=== PATIENT | female | born 1955 | race Caucasian/White ===

== ENCOUNTER 2016-07-04 19:41 | Observation (INO) | payer MEDICAID ==
[~2016-07-04] VITALS: Ht 157.5 cm; Wt 99.8 kg
[~2016-07-04 19:41] MED LIST: AMIT100T2; GABA300C8; PANTOPRAZOLE; SERT-160; SIMV-13; [UNRECOGNIZED DRUG - CODE]
[2016-07-05] MEDS ORDERED: SODIUM CHLORIDE 0.9% 1,000 ML IV ONE (06:47)
[2016-07-05] MEDS ORDERED: HYDROcodone-ACET 5/325MG TAB PO ONE (07:00)
[2016-07-05 07:24] VITALS: BP 171/99
[2016-07-05 07:25] LABS: Basophils # (auto) 0 uL; Basophils % (auto) 0.3 % (0.0-2.0); Eosinophils # (auto) 0.2 uL; Eosinophils % (auto) 2.6 % (0.0-7.0); Hemoglobin 13.6 g/dL (12.2-16.2); Lymphocytes # (auto) 2.6 uL; Lymphocytes % (auto) 31.1 % (10.0-50.0); Mean Corpuscular Hemoglobin 30.3 pg (28.0-32.0); Mean Corpuscular Hgb Conc. 33.3 g/dL (32.0-36.0); Mean Platelet Volume 7.5 fL (7.4-10.4); Monocytes # (auto) 0.5 uL; Monocytes % (auto) 6.2 % (0.0-12.0); Neutrophils # (auto) 5.1 uL; Neutrophils % (auto) 59.8 % (37.0-80.0); Platelet Count (auto) 224 10^3/uL (140-450); Red Cell Distribution Width 14.7 % (11.6-16.0); White Blood Cell 8.5 10^3/uL (4.4-10.8)
[2016-07-05 07:46] LABS: Albumin 4.2 g/dL (3.4-5.0); Blood Urea Nitrogen 13 mg/dL (7-18); Calcium 9.2 mg/dL (8.5-10.1); Chloride 104 mmol/L (98-107); Glucose 134 mg/dL (74-106); Potassium 3.5 mmol/L (3.5-5.1); Sodium 142 mmol/L (136-145)
[2016-07-05 07:50] LABS: Alkaline Phosphatase 102 U/L (45-117); Anion Gap 12 (5-15); Aspartate Aminotransferase 35 U/L (15-37); BUN/Creatinine Ratio 22.8; Bilirubin, Total 0.2 mg/dL (0.2-1.0); Carbon Dioxide 26 mmol/L (21-32); GFR African American 140 mL/min; GFR Non-African American 115 mL/min; INR 1.11 (0.9-1.15); Partial Thromboplastin Time 26.6 sec (22.64-33.71); Prothrombin Time 11.4 sec (9.37-12.3); Total Protein 8.3 g/dL (6.4-8.2)
== END 2016-07-05 08:49 | disposition home or self-care (01) | DRG 384 ==
LOC: ER 19:44 → OVERFLOW 07-05 06:50 → ER 07-05 08:49
PROVIDERS: ADMIT Emergency Medicine; ATTEND Emergency Medicine
DX: T14.8 Other injury of unspecified body region (principal); E66.01 Morbid (severe) obesity due to excess calories; I10 Essential (primary) hypertension; R06.02 Shortness of breath; J44.9 Chronic obstructive pulmonary disease, unspecified; E11.9 Type 2 diabetes mellitus without complications; K21.9 Gastro-esophageal reflux disease without esophagitis; E78.00 Pure hypercholesterolemia, unspecified; Z86.73 Personal history of transient ischemic attack (TIA), and cerebral infarction without residual deficits; R07.81 Pleurodynia; M25.9 Joint disorder, unspecified; F32.9 Major depressive disorder, single episode, unspecified; W19.XXXA Unspecified fall, initial encounter; Y93.89 Activity, other specified; Y92.89 Other specified places as the place of occurrence of the external cause; Y99.8 Other external cause status
CPT/HCPCS: 36415; 71111; 80053; 84484; 85025; 85610; 85730; 93005; 96360; 99285; G0378; J7030

== ENCOUNTER 2016-08-20 03:53 | Emergency (ER) | payer MEDICAID ==
[~2016-08-20] VITALS: Ht 157.5 cm; Wt 101.6 kg
[2016-08-20 04:00] VITALS: BP 135/85
[2016-08-20] MEDS ORDERED: KETOROLAC TROMETH 60MG/2ML VIAL IM ONE (04:45)
[2016-08-20] MEDS ORDERED: methylPREDNISolone SOD SUCC 125 MG/2 ML VL IM ONE (04:45)
== END 2016-08-20 04:50 | disposition home or self-care (01) ==
LOC: ER 03:58
CPT/HCPCS: 29505 ×2; 96372 ×2; 99284; J1885 ×2; J2930

== ENCOUNTER 2016-12-28 19:15 | Emergency (ER) | payer MEDICAID ==
[~2016-12-28] VITALS: Ht 157.5 cm; Wt 99.3 kg
[~2016-12-28 19:15] MED LIST changes: +GABA-497; -GABA300C8
[2016-12-28 21:30] VITALS: BP 152/84
== END 2016-12-28 22:08 | disposition home or self-care (01) ==
LOC: ER 19:20
DX: S90.32XA Contusion of left foot, initial encounter (principal); J45.909 Unspecified asthma, uncomplicated; E11.9 Type 2 diabetes mellitus without complications; K21.9 Gastro-esophageal reflux disease without esophagitis; E78.5 Hyperlipidemia, unspecified; Z79.899 Other long term (current) drug therapy; Z90.49 Acquired absence of other specified parts of digestive tract; W18.39XA Other fall on same level, initial encounter; Y93.89 Activity, other specified; Y92.89 Other specified places as the place of occurrence of the external cause; Y99.8 Other external cause status
CPT/HCPCS: 73630

== ENCOUNTER 2018-05-23 02:19 | Emergency (ER) | payer MEDICAID ==
[~2018-05-23] VITALS: Ht 157.5 cm; Wt 104.3 kg
[~2018-05-23 02:19] MED LIST changes: -GABA-497; +GABA300C10
[2018-05-23 02:45] LABS: Basophils # (auto) 0.1 uL; Basophils % (auto) 0.5 % (0.0-2.0); Eosinophils # (auto) 0.3 uL; Eosinophils % (auto) 2.8 % (0.0-7.0); Hematocrit 38.9 % (36.0-46.0); Lymphocytes # (auto) 3.6 uL; Lymphocytes % (auto) 32.7 % (10.0-50.0); Mean Corpuscular Hemoglobin 29.7 pg (28.0-32.0); Mean Corpuscular Hgb Conc. 33.3 g/dL (32.0-36.0); Mean Corpuscular Volume 89.2 fL (80.0-100.0); Monocytes # (auto) 0.7 uL; Monocytes % (auto) 6.7 % (0.0-12.0); Neutrophils # (auto) 6.4 uL; Neutrophils % (auto) 57.3 % (37.0-80.0); Nucleated Red Blood Cells % 0.1 %; Platelet Count (auto) 219 10^3/uL (140-450); Red Blood Cells 4.36 10^6/uL (4.0-5.20); Red Cell Distribution Width 14.4 % (11.8-14.3); White Blood Cell 11.1 10^3/uL (4.4-10.8)
[2018-05-23 03:03] LABS: Albumin 4.2 g/dL (3.4-5.0); Calcium 8.8 mg/dL (8.5-10.1); Potassium 3.5 mmol/L (3.5-5.1)
[2018-05-23 03:06] LABS: Bilirubin, Total 0.2 mg/dL (0.2-1.0); Total Protein 7.8 g/dL (6.4-8.2)
[2018-05-23 07:54] VITALS: BP 152/58
== END 2018-05-23 08:56 | disposition home or self-care (01) ==
LOC: ER 02:19
DX: S86.911A Strain of unspecified muscle(s) and tendon(s) at lower leg level, right leg, initial encounter (principal); J45.909 Unspecified asthma, uncomplicated; E11.9 Type 2 diabetes mellitus without complications; K21.9 Gastro-esophageal reflux disease without esophagitis; E78.5 Hyperlipidemia, unspecified; Z86.73 Personal history of transient ischemic attack (TIA), and cerebral infarction without residual deficits; Z90.49 Acquired absence of other specified parts of digestive tract; X58.XXXA Exposure to other specified factors, initial encounter; Y93.89 Activity, other specified; Y92.098 Other place in other non-institutional residence as the place of occurrence of the external cause; Y99.8 Other external cause status
CPT/HCPCS: 36415; 80053; 85025; 93971

== ENCOUNTER 2018-07-01 16:38 | Emergency (ER) | payer MEDICAID ==
[~2018-07-01] VITALS: Ht 157.5 cm; Wt 103.4 kg
[2018-07-01] MEDS ORDERED: IPRATROPIUM BROM 0.5 MG/2.5ML INH SOL NEB ONE (19:45)
[2018-07-01] MEDS ORDERED: ALBUTEROL SULF 2.5 MG/0.5ML(0.5%) NEB SOLN NEB ONE (19:45)
[2018-07-01] MEDS ORDERED: methylPREDNISolone SOD SUCC 125 MG/2 ML VL IM ONE (19:45)
[2018-07-01 20:31] VITALS: BP 114/63
== END 2018-07-01 23:40 | disposition home or self-care (01) ==
LOC: ER 16:46
DX: M25.562 Pain in left knee (principal); J44.1 Chronic obstructive pulmonary disease with (acute) exacerbation; E11.9 Type 2 diabetes mellitus without complications; K21.9 Gastro-esophageal reflux disease without esophagitis; E78.5 Hyperlipidemia, unspecified; Z90.49 Acquired absence of other specified parts of digestive tract; Z86.73 Personal history of transient ischemic attack (TIA), and cerebral infarction without residual deficits
CPT/HCPCS: 73562; 94640; 96372; 99283; J2930; J7611; J7644

== ENCOUNTER 2021-11-12 14:03 | Emergency (ER) | payer MEDICAID ==
[~2021-11-12 14:03] MED LIST changes: -AMIT100T2; +AMIT1TAB41
[2021-11-12 15:00] LABS: Albumin 3.7 g/dL (3.4-5.0); Calcium 9.6 mg/dL (8.5-10.1); Potassium 4.1 mmol/L (3.5-5.1)
[2021-11-12 15:05] LABS: BUN/Creatinine Ratio 24.6; Bilirubin, Total 0.2 mg/dL (0.2-1.0); Total Protein 7.8 g/dL (6.4-8.2)
[2021-11-12 15:09] LABS: Basophils # (auto) 0 10 ^3/uL (0-0.2); Basophils % (auto) 0.3 % (0.0-2.0); Eosinophils # (auto) 0.2 10 ^3/uL (0-0.8); Eosinophils % (auto) 1.6 % (0.0-7.0); Hematocrit 39.9 % (36.0-46.0); Hemoglobin 12.8 g/dL (12.2-16.2); Lymphocytes # (auto) 2.2 10 ^3/uL (0.4-5.4); Lymphocytes % (auto) 21.8 % (10.0-50.0); Mean Corpuscular Hemoglobin 27.1 pg (28.0-32.0); Mean Corpuscular Volume 84.7 fL (80.0-100.0); Monocytes # (auto) 0.6 10 ^3/uL (0-1.3); Monocytes % (auto) 6.5 % (0.0-12.0); Neutrophils # (auto) 6.9 10 ^3/uL (1.6-8.6); Neutrophils % (auto) 69.8 % (37.0-80.0); Nucleated Red Blood Cells % 0.1 %; Red Blood Cells 4.71 10^6/uL (4.0-5.20); White Blood Cell 9.9 10^3/uL (4.4-10.8)
[2021-11-12 19:00] VITALS: BP 127/66
== END 2021-11-12 19:03 | disposition home or self-care (01) ==
LOC: EDBD 14:03 → ER 14:03
DX: S16.1XXA Strain of muscle, fascia and tendon at neck level, initial encounter (principal); S70.02XA Contusion of left hip, initial encounter; S50.02XA Contusion of left elbow, initial encounter; S09.8XXA Other specified injuries of head, initial encounter; J44.9 Chronic obstructive pulmonary disease, unspecified; E11.9 Type 2 diabetes mellitus without complications; K21.9 Gastro-esophageal reflux disease without esophagitis; E78.5 Hyperlipidemia, unspecified; I10 Essential (primary) hypertension; Z90.49 Acquired absence of other specified parts of digestive tract; Z90.710 Acquired absence of both cervix and uterus; Z98.51 Tubal ligation status; W01.0XXA Fall on same level from slipping, tripping and stumbling without subsequent striking against object, initial encounter; Y93.01 Activity, walking, marching and hiking; Y92.89 Other specified places as the place of occurrence of the external cause; Y99.8 Other external cause status
CPT/HCPCS: 36415; 70450; 72125; 73070; 73502; 80053; 85025; 93005

== ENCOUNTER 2022-07-03 10:49 | Emergency (ER) | payer OTHER, MEDICAID ==
[~2022-07-03] VITALS: Ht 167.6 cm; Wt 113.0 kg
[2022-07-03 11:27] LABS: Basophils # (auto) 0.2 10 ^3/uL (0-0.2); Eosinophils # (auto) 0.2 10 ^3/uL (0-0.8); Hematocrit 41.6 % (36.0-46.0); Hemoglobin 13.9 g/dL (12.2-16.2); Lymphocytes # (auto) 1.9 10 ^3/uL (0.4-5.4); Mean Corpuscular Hemoglobin 29.2 pg (28.0-32.0); Mean Corpuscular Hgb Conc. 33.4 g/dL (32.0-36.0); Mean Corpuscular Volume 87.5 fL (80.0-100.0); Monocytes # (auto) 0.5 10 ^3/uL (0-1.3); Red Blood Cells 4.76 10^6/uL (4.0-5.20); White Blood Cell 10.9 10^3/uL (4.4-10.8)
[2022-07-03 11:50] LABS: Albumin 3.6 g/dL (3.4-5.0); Bilirubin, Total 0.2 mg/dL (0.2-1.0); Calcium 9.4 mg/dL (8.5-10.1); Potassium 4.4 mmol/L (3.5-5.1); Total Protein 7.1 g/dL (6.4-8.2)
[2022-07-03 15:02] VITALS: BP 113/53
== END 2022-07-03 15:14 | disposition home or self-care (01) ==
LOC: EDBD 10:49 → ER 10:49
DX: S42.202A Unspecified fracture of upper end of left humerus, initial encounter for closed fracture (principal); I10 Essential (primary) hypertension; E11.9 Type 2 diabetes mellitus without complications; J44.9 Chronic obstructive pulmonary disease, unspecified; E78.5 Hyperlipidemia, unspecified; K21.9 Gastro-esophageal reflux disease without esophagitis; Z90.49 Acquired absence of other specified parts of digestive tract; Z86.73 Personal history of transient ischemic attack (TIA), and cerebral infarction without residual deficits; Z90.710 Acquired absence of both cervix and uterus; Z79.899 Other long term (current) drug therapy; W01.0XXA Fall on same level from slipping, tripping and stumbling without subsequent striking against object, initial encounter; Y93.89 Activity, other specified; Y92.89 Other specified places as the place of occurrence of the external cause; Y99.8 Other external cause status
CPT/HCPCS: 36415; 73030; 80053; 82550; 83605; 84484; 85025

== ENCOUNTER 2022-09-06 11:55 | Emergency (ER) | payer OTHER, MEDICAID ==
[~2022-09-06] VITALS: Ht 157.5 cm; Wt 108.5 kg
[2022-09-06 12:39] VITALS: BP 117/70
[2022-09-06] MEDS: HYDROcodone-ACET 10/325MG TAB PO ONE ×2 (13:59→14:30)
== END 2022-09-06 14:37 | disposition home or self-care (01) ==
LOC: ER 11:55
DX: M51.36 Other intervertebral disc degeneration, lumbar region (principal); M54.16 Radiculopathy, lumbar region; G89.29 Other chronic pain; M54.50 Low back pain, unspecified; J44.9 Chronic obstructive pulmonary disease, unspecified; I10 Essential (primary) hypertension; E11.9 Type 2 diabetes mellitus without complications; E78.5 Hyperlipidemia, unspecified; K21.9 Gastro-esophageal reflux disease without esophagitis; Z90.49 Acquired absence of other specified parts of digestive tract; Z90.710 Acquired absence of both cervix and uterus; Z79.899 Other long term (current) drug therapy
CPT/HCPCS: 72131

== ENCOUNTER 2023-05-08 13:24 | Inpatient (IN) | payer OTHER, MEDICAID ==
[~2023-05-08] VITALS: Ht 157.5 cm; Wt 101.7 kg
[~2023-05-08 13:24] MED LIST changes: +AMIT100T6 PO; -AMIT1TAB41; +GABA-1250; -GABA300C10; -SERT-160; +SERT-160 PO; -SIMV-13; +SIMV40TA18 PO
[2023-05-08 13:45] VITALS: PULSE 115; RESP 14; O2SAT 94
[2023-05-08 14:30] LABS: Basophils # (auto) 0 10 ^3/uL (0-0.2); Basophils % (auto) 0.4 % (0.0-2.0); Eosinophils # (auto) 0 10 ^3/uL (0-0.8); Eosinophils % (auto) 0.3 % (0.0-7.0); Hematocrit 46.6 % (36.0-46.0); Lymphocytes # (auto) 0.6 10 ^3/uL (0.4-5.4); Lymphocytes % (auto) 8.2 % (10.0-50.0); Mean Corpuscular Hemoglobin 27.8 pg (28.0-32.0); Mean Corpuscular Hgb Conc. 32.2 g/dL (32.0-36.0); Mean Corpuscular Volume 86.3 fL (80.0-100.0); Monocytes # (auto) 0.6 10 ^3/uL (0-1.3); Monocytes % (auto) 8.6 % (0.0-12.0); Neutrophils # (auto) 5.8 10 ^3/uL (1.6-8.6); Neutrophils % (auto) 82.5 % (37.0-80.0); Nucleated Red Blood Cells % 0.2 %; Red Blood Cells 5.39 10^6/uL (4.0-5.20); Red Cell Distribution Width 14.7 % (11.8-14.3); White Blood Cell 7.1 10^3/uL (4.4-10.8)
[2023-05-08] MEDS ORDERED: SODIUM CHLORIDE 0.9% 1,000 ML IV ONE (14:45)
[2023-05-08 14:56] LABS: Alanine Aminotransferase 103 U/L (7-40); Alkaline Phosphatase 73 U/L (46-116); Anion Gap 13 (5-15); Aspartate Aminotransferase 179 U/L (13-40); BUN/Creatinine Ratio 29.6 (10.0-20.0); Blood Urea Nitrogen 21 mg/dL (9-23); Calcium 8.8 mg/dL (8.7-10.4); Carbon Dioxide 20 mmol/L (20-30); Chloride 106 mmol/L (98-107); Glucose 229 mg/dL (74-106); Lipase 25 U/L (12-53); Magnesium 1.5 mg/dL (1.6-2.6); Potassium 4.2 mmol/L (3.5-5.1); Sodium 139 mmol/L (136-145)
[2023-05-08 14:57] LABS: Bilirubin, Total 0.3 mg/dL (0.2-1.0); Total Protein 6.8 g/dL (5.7-8.2)
[2023-05-08] MEDS ORDERED: MAGNESIUM SULFATE 1GM/100ML 100 ML IV ONE (15:45)
[2023-05-08] MEDS ORDERED: ACETAMINOPHEN 325 MG TAB PO PRN (16:30)
[2023-05-08] MEDS ORDERED: MORPHINE SULFATE INJ 2 MG/ml SYRG IV PRN (16:30)
[2023-05-08] MEDS ORDERED: DEXTROSE (50%) 50ML SYRG IV PRN (16:30)
[2023-05-08] MEDS ORDERED: NITROGLYCERIN 0.4 MG SL TAB SL PRN (16:30)
[2023-05-08 16:46] VITALS: BP 114/90; PULSE 109; RESP 18; TEMP 98.3; O2SAT 97
[2023-05-08 17:19] LABS: LDL Cholesterol 74 mg/dL (< 100); Triglycerides 300 mg/dL (< 150)
[2023-05-08 17:20] LABS: Cholesterol 147 mg/dL (< 200); HDL Cholesterol 28 mg/dL (40-59)
[2023-05-08] MEDS: SODIUM CHLORIDE 0.9% 1,000 ML IV SCH (17:30)
[2023-05-08] MEDS: ACCU-CHEK COMFORT CURVE STRIP VI SCH ×2 (17:30→22:00)
[2023-05-08] MEDS ORDERED: GABA-339 PO (17:50)
[2023-05-08] MEDS ORDERED: PANT40TA57 PO (17:50)
[2023-05-08] MEDS: InsuLIN REG 1unit/0.01ml Soln (100units/ml) SC SCH ×2 (17:59→22:00)
[2023-05-08 18:17] LABS: Urine Bacteria FEW /hpf (None Seen); Urine Blood Negative /uL (Negative); Urine Clarity Clear (Clear); Urine Color Yellow (Yellow); Urine Protein, UAD TRACE (Negative); Urine Specific Gravity 1.023 (1.001-1.035); Urine Urobilinogen Normal (Negative); Urine WBC 22 /hpf (0 - 5); Urine pH 5.5 (5.0-8.0)
[2023-05-08] MEDS: ALBUTEROL SULF 2.5 MG/0.5ML(0.5%) NEB SOLN NEB PRN (18:36)
[2023-05-08 18:37] LABS: COVID19 ANTIGEN SOFIA FIA NEGATIVE (NEGATIVE)
[2023-05-08 19:30] VITALS: PULSE 117; RESP 12; O2SAT 96
[2023-05-08 21:36] VITALS: BP 118/67; PULSE 108; O2SAT 96
[2023-05-09] VITALS (14 sets, daily range): BP systolic 117–146; BP diastolic 56–75; PULSE 64–105; RESP 16–22; TEMP 97.9–98.6; O2SAT 94–100
[2023-05-09 05:54] LABS: Basophils # (auto) 0 10 ^3/uL (0-0.2); Basophils % (auto) 0.3 % (0.0-2.0); Eosinophils # (auto) 0 10 ^3/uL (0-0.8); Eosinophils % (auto) 0.6 % (0.0-7.0); Hematocrit 34.7 % (36.0-46.0); Hemoglobin 11.6 g/dL (12.2-16.2); Lymphocytes # (auto) 1.7 10 ^3/uL (0.4-5.4); Lymphocytes % (auto) 25.6 % (10.0-50.0); Mean Corpuscular Hemoglobin 28.3 pg (28.0-32.0); Mean Corpuscular Hgb Conc. 33.5 g/dL (32.0-36.0); Mean Corpuscular Volume 84.6 fL (80.0-100.0); Monocytes % (auto) 15.1 % (0.0-12.0); Neutrophils # (auto) 3.9 10 ^3/uL (1.6-8.6); Neutrophils % (auto) 58.4 % (37.0-80.0); Nucleated Red Blood Cells % 0.2 %; Red Blood Cells 4.11 10^6/uL (4.0-5.20); Red Cell Distribution Width 14.7 % (11.8-14.3); White Blood Cell 6.7 10^3/uL (4.4-10.8)
[2023-05-09 06:13] LABS: Alanine Aminotransferase 81 U/L (7-40); Albumin 3.9 g/dL (3.2-4.8); Alkaline Phosphatase 55 U/L (46-116); Anion Gap 8 (5-15); Aspartate Aminotransferase 127 U/L (13-40); BUN/Creatinine Ratio 22.4 (10.0-20.0); Bilirubin, Total 0.3 mg/dL (0.2-1.0); Blood Urea Nitrogen 15 mg/dL (9-23); Calcium 9.1 mg/dL (8.5-10.1); Carbon Dioxide 25 mmol/L (20-30); Chloride 106 mmol/L (98-107); Glucose 115 mg/dL (74-106); Potassium 3.7 mmol/L (3.5-5.1); Sodium 139 mmol/L (136-145); Total Protein 6.6 g/dL (5.7-8.2)
[2023-05-09] MEDS: ACCU-CHEK COMFORT CURVE STRIP VI SCH ×3 (06:18→17:31)
[2023-05-09] MEDS: InsuLIN REG 1unit/0.01ml Soln (100units/ml) SC SCH ×3 (06:18→17:30)
[2023-05-09] MEDS: SODIUM CHLORIDE 0.9% 1,000 ML IV SCH (06:20)
[2023-05-09] MEDS ORDERED: PERCOT PO (08:35)
[2023-05-09] MEDS ORDERED: OXYC15TA77 PO (08:35)
[2023-05-09] MEDS ORDERED: ENOXAPARIN SOD 40 MG/0.4 ML SYRINGE SC SCH (10:00)
[2023-05-09] MEDS: ALBUTEROL SULF 2.5 MG/0.5ML(0.5%) NEB SOLN NEB PRN (10:16)
[2023-05-09] MEDS ORDERED: levoFLOXacin 500MG 100 ML IV ONE (14:30)
[2023-05-09] MEDS ORDERED: CIPR500T4 PO (17:51)
[2023-05-12 08:57] LABS: Hepatitis B Surface Antigen Negative (Negative)
[2023-05-12 09:18] LABS: Hepatitis C Antibody Negative (Negative)
== END 2023-05-09 17:56 | disposition home or self-care (01) | DRG 312 ==
LOC: EDBD 13:24 → ER 13:24 → TELE 16:32 → TELE-WESTW 23:48
PROVIDERS: ADMIT Nurse Practitioner Family; ATTEND Nurse Practitioner Acute Care
PROC: 5A09357 Assistance with Respiratory Ventilation, Less than 24 Consecutive Hours, Continuous Positive Airway Pressure (ICD-10-PCS; principal; 2023-05-08)
PROC: 5A09357 Assistance with Respiratory Ventilation, Less than 24 Consecutive Hours, Continuous Positive Airway Pressure (ICD-10-PCS; 2023-05-09)
DX: I95.2 Hypotension due to drugs (principal); Z68.41 Body mass index [BMI] 40.0-44.9, adult; N39.0 Urinary tract infection, site not specified; E86.0 Dehydration; C50.919 Malignant neoplasm of unspecified site of unspecified female breast; E83.42 Hypomagnesemia; E11.65 Type 2 diabetes mellitus with hyperglycemia; Z20.822 Contact with and (suspected) exposure to COVID-19; I10 Essential (primary) hypertension; J44.9 Chronic obstructive pulmonary disease, unspecified; E66.01 Morbid (severe) obesity due to excess calories; E78.5 Hyperlipidemia, unspecified; E11.40 Type 2 diabetes mellitus with diabetic neuropathy, unspecified; T45.1X5A Adverse effect of antineoplastic and immunosuppressive drugs, initial encounter; Z86.73 Personal history of transient ischemic attack (TIA), and cerebral infarction without residual deficits
CPT/HCPCS: 36415; 71045; 80053; 80061; 81001; 82140; 82962; 83036; 83605; 83690; 83735; 83880; 84443; 84484; 85025; 86803; 87040; 87340; 87426; 93005; 94640; 94660; 97163; G0378; J1815; J1956

== ENCOUNTER 2023-05-15 15:08 | Inpatient (IN) | payer OTHER, MEDICAID ==
[~2023-05-15] VITALS: Ht 157.5 cm; Wt 104.5 kg
[~2023-05-15 15:08] MED LIST changes: +CIPR500T4 PO; -GABA-1250; +GABA-339 PO; +OXYC15TA77 PO; +PANT40TA57 PO; -PANTOPRAZOLE; +PERCOT PO
[2023-05-15] MEDS ORDERED: SODIUM CHLORIDE 0.9% 500 ML IV ONE (15:45)
[2023-05-15 16:48] LABS: Urine Epithelial Cast None Seen /hpf (<5)
[2023-05-15 16:59] LABS: Basophils # (auto) 0 10 ^3/uL (0-0.2); Basophils % (auto) 0.3 % (0.0-2.0); Eosinophils # (auto) 0 10 ^3/uL (0-0.8); Eosinophils % (auto) 0.2 % (0.0-7.0); Hematocrit 39.6 % (36.0-46.0); Lymphocytes # (auto) 0.5 10 ^3/uL (0.4-5.4); Lymphocytes % (auto) 4.2 % (10.0-50.0); Mean Corpuscular Hemoglobin 27.9 pg (28.0-32.0); Mean Corpuscular Hgb Conc. 32.9 g/dL (32.0-36.0); Mean Corpuscular Volume 84.7 fL (80.0-100.0); Monocytes # (auto) 0.3 10 ^3/uL (0-1.3); Monocytes % (auto) 2.7 % (0.0-12.0); Neutrophils % (auto) 92.6 % (37.0-80.0); Red Blood Cells 4.67 10^6/uL (4.0-5.20); Red Cell Distribution Width 15.7 % (11.8-14.3); White Blood Cell 12.9 10^3/uL (4.4-10.8)
[2023-05-15 17:10] LABS: Urine Bacteria NONE SEEN /hpf (None Seen); Urine Blood Negative /uL (Negative); Urine Clarity Clear (Clear); Urine Color Colorless (Yellow); Urine Protein, UAD Negative (Negative); Urine Specific Gravity 1.017 (1.001-1.035); Urine Urobilinogen Normal (Negative); Urine WBC <1 /hpf (0 - 5)
[2023-05-15 18:21] LABS: Alanine Aminotransferase 91 U/L (7-40); Albumin 4.2 g/dL (3.2-4.8); Alkaline Phosphatase 79 U/L (46-116); Anion Gap 15 (5-15); Aspartate Aminotransferase 118 U/L (13-40); BUN/Creatinine Ratio 16.9 (10.0-20.0); Bilirubin, Total 0.4 mg/dL (0.2-1.0); Blood Urea Nitrogen 13 mg/dL (9-23); Calcium 9.2 mg/dL (8.7-10.4); Carbon Dioxide 19 mmol/L (20-30); Chloride 102 mmol/L (98-107); Glucose 349 mg/dL (74-106); Magnesium 1.6 mg/dL (1.6-2.6); Potassium 4.3 mmol/L (3.5-5.1); Sodium 136 mmol/L (136-145); Total Protein 7.4 g/dL (5.7-8.2)
[2023-05-15] MEDS ORDERED: DOCUSATE SOD 100 MG CAP PO PRN (21:00)
[2023-05-15] MEDS ORDERED: MORPHINE SULFATE INJ 2 MG/ml SYRG IV PRN (21:00)
[2023-05-15] MEDS ORDERED: NITROGLYCERIN 0.4 MG SL TAB SL PRN (21:00)
[2023-05-15] MEDS ORDERED: AZITHROMYCIN 500MG/ 250ML 250 ML IV ONE (21:00)
[2023-05-15] MEDS ORDERED: cefTRIAXone 1GM/50ML D5W 50 ML IV ONE (21:00)
[2023-05-15] MEDS ORDERED: ACETAMINOPHEN 325 MG TAB PO PRN (21:00)
[2023-05-15] MEDS ORDERED: ONDANSETRON HCL 4 MG/2 ML VIAL IV PRN (21:00)
[2023-05-15 21:04] LABS: COVID19 ANTIGEN SOFIA FIA NEGATIVE (NEGATIVE); Rapid Influenza A Negative (Negative); Rapid Influenza B Negative (Negative)
[2023-05-15] MEDS ORDERED: FUROSEMIDE 20 MG/2 ML VIAL IV ONE (21:45)
[2023-05-15] MEDS ORDERED: FENO160T PO (22:03)
[2023-05-15] MEDS ORDERED: ENAL5TAB22 PO (22:06)
[2023-05-15] MEDS: OXYCODONE ACETAMINOPHEN PO SCH (23:10)
[2023-05-16] VITALS (12 sets, daily range): BP systolic 109–132; BP diastolic 47–81; PULSE 42–105; RESP 16–24; TEMP 97.8–98.3; O2SAT 91–99
[2023-05-16] MEDS: OXYCODONE ACETAMINOPHEN PO SCH ×3 (06:00→22:05)
[2023-05-16] MEDS: GABAPENTIN 300 MG CAP PO SCH ×3 (06:13→22:05)
[2023-05-16] MEDS: ALBUTEROL SULF 2.5 MG/0.5ML(0.5%) NEB SOLN NEB SCH ×3 (06:55→19:06)
[2023-05-16] MEDS: IPRATROPIUM BROM 0.5 MG/2.5ML INH SOL NEB SCH ×3 (06:55→19:06)
[2023-05-16 07:04] LABS: Basophils # (auto) 0 10 ^3/uL (0-0.2); Basophils % (auto) 0.3 % (0.0-2.0); Eosinophils # (auto) 0 10 ^3/uL (0-0.8); Eosinophils % (auto) 0.2 % (0.0-7.0); Hematocrit 36.7 % (36.0-46.0); Hemoglobin 12.1 g/dL (12.2-16.2); Lymphocytes % (auto) 19.9 % (10.0-50.0); Mean Corpuscular Hemoglobin 28.1 pg (28.0-32.0); Mean Corpuscular Volume 85.1 fL (80.0-100.0); Monocytes # (auto) 0.9 10 ^3/uL (0-1.3); Monocytes % (auto) 8.9 % (0.0-12.0); Neutrophils # (auto) 7.2 10 ^3/uL (1.6-8.6); Neutrophils % (auto) 70.7 % (37.0-80.0); Nucleated Red Blood Cells % 0.1 %; Red Blood Cells 4.31 10^6/uL (4.0-5.20); Red Cell Distribution Width 15.8 % (11.8-14.3); White Blood Cell 10.2 10^3/uL (4.4-10.8)
[2023-05-16 07:16] LABS: Alanine Aminotransferase 83 U/L (7-40); Albumin 4.3 g/dL (3.2-4.8); Alkaline Phosphatase 71 U/L (46-116); Anion Gap 11 (5-15); Aspartate Aminotransferase 90 U/L (13-40); BUN/Creatinine Ratio 23.6 (10.0-20.0); Bilirubin, Total 0.3 mg/dL (0.2-1.0); Blood Urea Nitrogen 17 mg/dL (9-23); Calcium 9.7 mg/dL (8.5-10.1); Carbon Dioxide 24 mmol/L (20-30); Chloride 103 mmol/L (98-107); Glucose 166 mg/dL (74-106); Potassium 3.7 mmol/L (3.5-5.1); Sodium 138 mmol/L (136-145); Total Protein 7.5 g/dL (5.7-8.2)
[2023-05-16] MEDS ORDERED: IOHEXOL 350 MG/ML 100ML IJ ONE (09:15)
[2023-05-16] MEDS: ENALAPRIL MALEATE 2.5 MG TAB PO SCH (10:00)
[2023-05-16] MEDS ORDERED: PANTOPRAZOLE 40 MG TAB PO SCH (10:00)
[2023-05-16] MEDS: cefTRIAXone 1GM/50ML D5W 50 ML IV SCH (11:44)
[2023-05-16] MEDS: SERTRALINE HCL 50 MG TAB PO SCH (11:50)
[2023-05-16] MEDS: AZITHROMYCIN 500MG/ 250ML 250 ML IV SCH (13:09)
[2023-05-16] MEDS ORDERED: ATORVASTATIN 20 MG TAB PO SCH (22:00)
[2023-05-17] VITALS (10 sets, daily range): BP systolic 103–136; BP diastolic 57–67; PULSE 45–101; RESP 17–20; TEMP 97.7–98.2; O2SAT 93–99
[2023-05-17] MEDS: GABAPENTIN 300 MG CAP PO SCH ×2 (06:09→16:18)
[2023-05-17] MEDS: ALBUTEROL SULF 2.5 MG/0.5ML(0.5%) NEB SOLN NEB SCH ×2 (06:42→12:08)
[2023-05-17] MEDS: OXYCODONE ACETAMINOPHEN PO SCH ×2 (06:42→14:00)
[2023-05-17] MEDS: IPRATROPIUM BROM 0.5 MG/2.5ML INH SOL NEB SCH ×2 (06:42→12:07)
[2023-05-17] MEDS: cefTRIAXone 1GM/50ML D5W 50 ML IV SCH (09:59)
[2023-05-17] MEDS: SERTRALINE HCL 50 MG TAB PO SCH (10:00)
[2023-05-17] MEDS: ENALAPRIL MALEATE 2.5 MG TAB PO SCH (10:00)
[2023-05-17] MEDS: AZITHROMYCIN 500MG/ 250ML 250 ML IV SCH (10:58)
[2023-05-17] MEDS ORDERED: DOXY1CAP57 PO (15:29)
[2023-05-17] MEDS ORDERED: POTA10TA51 PO (15:30)
[2023-05-17] MEDS ORDERED: FURO20TA3 PO (15:30)
[2023-05-17] MEDS ORDERED: ALBU108A14 IN (15:31)
== END 2023-05-17 17:11 | disposition home or self-care (01) | DRG 189 ==
LOC: EDUNIT# 15:08 → EDBD 15:08 → ER 15:08 → TELE 20:56 → TELE-WESTW 20:56
PROVIDERS: ADMIT Nurse Practitioner Family; ATTEND Internal Medicine
DX: J96.01 Acute respiratory failure with hypoxia (principal); J44.1 Chronic obstructive pulmonary disease with (acute) exacerbation; Z68.41 Body mass index [BMI] 40.0-44.9, adult; N39.0 Urinary tract infection, site not specified; I50.32 Chronic diastolic (congestive) heart failure; C50.919 Malignant neoplasm of unspecified site of unspecified female breast; E66.01 Morbid (severe) obesity due to excess calories; J44.9 Chronic obstructive pulmonary disease, unspecified; E11.9 Type 2 diabetes mellitus without complications; E78.5 Hyperlipidemia, unspecified; F32.A Depression, unspecified; I11.0 Hypertensive heart disease with heart failure; R79.89 Other specified abnormal findings of blood chemistry; R74.01 Elevation of levels of liver transaminase levels; J98.4 Other disorders of lung; D72.829 Elevated white blood cell count, unspecified; Z20.822 Contact with and (suspected) exposure to COVID-19; T45.1X5A Adverse effect of antineoplastic and immunosuppressive drugs, initial encounter; Y92.89 Other specified places as the place of occurrence of the external cause; Z85.3 Personal history of malignant neoplasm of breast; Z86.73 Personal history of transient ischemic attack (TIA), and cerebral infarction without residual deficits; Z90.710 Acquired absence of both cervix and uterus; Z95.1 Presence of aortocoronary bypass graft; Z90.49 Acquired absence of other specified parts of digestive tract
CPT/HCPCS: 36415; 71045; 71275; 80053; 81001; 83605; 83735; 83880; 85025; 85379; 87040; 87086; 87088; 87426; 87804; 93005; 93306; 93971; 94640; G0378

== ENCOUNTER 2023-06-14 03:22 | Emergency (ER) | payer OTHER, MEDICAID ==
[~2023-06-14] VITALS: Ht 157.5 cm; Wt 100.0 kg
[~2023-06-14 03:22] MED LIST changes: +ALBU108A14 IN; -CIPR500T4 PO; +DOXY1CAP57 PO; +ENAL5TAB22 PO; +FENO160T PO; +FURO20TA3 PO; -OXYC15TA77 PO; +POTA10TA51 PO
[2023-06-14 09:50] VITALS: BP 139/61; PULSE 110; RESP 19; TEMP 98.3; O2SAT 94
[2023-06-14] MEDS: HYDROcodone-ACET 10/325MG TAB PO ONE (09:53)
== END 2023-06-14 09:54 | disposition home or self-care (01) ==
LOC: ER 03:22 → EDBD 03:22 → ER 09:52
DX: S22.32XA Fracture of one rib, left side, initial encounter for closed fracture (principal); J44.9 Chronic obstructive pulmonary disease, unspecified; E11.9 Type 2 diabetes mellitus without complications; I10 Essential (primary) hypertension; Z86.73 Personal history of transient ischemic attack (TIA), and cerebral infarction without residual deficits; Z90.49 Acquired absence of other specified parts of digestive tract; Z90.710 Acquired absence of both cervix and uterus; W18.09XA Striking against other object with subsequent fall, initial encounter; Y93.89 Activity, other specified; Y92.89 Other specified places as the place of occurrence of the external cause; Y99.8 Other external cause status
CPT/HCPCS: 71101

== ENCOUNTER 2023-06-17 11:07 | Emergency (ER) | payer OTHER, MEDICAID ==
[~2023-06-17] VITALS: Ht 157.5 cm; Wt 96.3 kg
[2023-06-17 12:00] LABS: Basophils # (auto) 0 10 ^3/uL (0-0.2); Basophils % (auto) 0.3 % (0.0-2.0); Eosinophils # (auto) 0 10 ^3/uL (0-0.8); Lymphocytes # (auto) 1.9 10 ^3/uL (0.4-5.4); Lymphocytes % (auto) 38.3 % (10.0-50.0); Monocytes # (auto) 0.5 10 ^3/uL (0-1.3); Neutrophils # (auto) 2.4 10 ^3/uL (1.6-8.6); Nucleated Red Blood Cells % 0.2 %; White Blood Cell 4.9 10^3/uL (4.4-10.8)
[2023-06-17 12:02] LABS: Eosinophils % (auto) 0.4 % (0.0-7.0); Hemoglobin 11.3 g/dL (12.2-16.2); Mean Corpuscular Hemoglobin 28.4 pg (28.0-32.0); Mean Corpuscular Hgb Conc. 32.4 g/dL (32.0-36.0); Mean Corpuscular Volume 87.6 fL (80.0-100.0); Monocytes % (auto) 11.1 % (0.0-12.0); Neutrophils % (auto) 49.9 % (37.0-80.0); Red Cell Distribution Width 18.9 % (11.8-14.3)
[2023-06-17 12:25] LABS: Alanine Aminotransferase 73 U/L (7-40); Albumin 4.1 g/dL (3.2-4.8); Alkaline Phosphatase 54 U/L (46-116); Anion Gap 7 (5-15); Aspartate Aminotransferase 129 U/L (13-40); BUN/Creatinine Ratio 29.9 (10.0-20.0); Bilirubin, Total 0.4 mg/dL (0.2-1.0); Blood Urea Nitrogen 20 mg/dL (9-23); Calcium 9.3 mg/dL (8.7-10.4); Carbon Dioxide 26 mmol/L (20-30); Chloride 106 mmol/L (98-107); Glucose 166 mg/dL (74-106); Lipase 27 U/L (12-53); Potassium 4.1 mmol/L (3.5-5.1); Sodium 139 mmol/L (136-145); Total Protein 7.1 g/dL (5.7-8.2)
[2023-06-17] MEDS: LACTULOSE 20Gm/30ML SOLN PO ONE (13:30)
[2023-06-17 13:56] LABS: Urine Bacteria FEW /hpf (None Seen); Urine Blood Negative /uL (Negative); Urine Clarity HAZY (Clear); Urine Color Yellow (Yellow); Urine Mucus FEW (None Seen); Urine Protein, UAD TRACE (Negative); Urine Specific Gravity 1.026 (1.001-1.035); Urine Urobilinogen Normal (Negative); Urine WBC 103 /hpf (0 - 5); Urine pH 5.5 (5.0-8.0)
[2023-06-17] MEDS ORDERED: NITR-87 PO (16:05)
[2023-06-17 17:35] VITALS: BP 145/80; PULSE 90; RESP 18; TEMP 98.3; O2SAT 95
== END 2023-06-17 17:36 | disposition home or self-care (01) ==
LOC: EDBD 11:07 → ER 11:07 → EDSEX 11:07 → ER 17:31
DX: S22.32XA Fracture of one rib, left side, initial encounter for closed fracture (principal); K59.00 Constipation, unspecified; N39.0 Urinary tract infection, site not specified; X58.XXXA Exposure to other specified factors, initial encounter; Y93.89 Activity, other specified; Y92.89 Other specified places as the place of occurrence of the external cause; Y99.8 Other external cause status
CPT/HCPCS: 36415; 74176; 80053; 81001; 83605; 83690; 84484; 85025; 93005

== ENCOUNTER 2023-11-04 01:37 | Inpatient (IN) | payer OTHER, MEDICAID ==
[~2023-11-04] VITALS: Ht 152.4 cm; Wt 91.0 kg
[~2023-11-04 01:37] MED LIST changes: +NITR-87 PO; +POTA-36 PO; -POTA10TA51 PO
[2023-11-04 02:39] LABS: Basophils # (auto) 0 10 ^3/uL (0-0.2); Eosinophils # (auto) 0 10 ^3/uL (0-0.8); Eosinophils % (auto) 0.6 % (0.0-7.0); Hemoglobin 8.5 g/dL (12.2-16.2); Lymphocytes # (auto) 0.7 10 ^3/uL (0.4-5.4); Mean Corpuscular Hgb Conc. 34.6 g/dL (32.0-36.0); Monocytes # (auto) 0.5 10 ^3/uL (0-1.3); Nucleated Red Blood Cells % 0.1 %; White Blood Cell 4.2 10^3/uL (4.4-10.8)
[2023-11-04] MEDS: SODIUM CHLORIDE 0.9% 1,000 ML IV ONE ×2 (02:53→04:57)
[2023-11-04 03:04] LABS: Basophils % (auto) 0.4 % (0.0-2.0); Hematocrit 24.6 % (36.0-46.0); Lymphocytes % (auto) 15.6 % (10.0-50.0); Mean Corpuscular Volume 101.2 fL (80.0-100.0); Monocytes % (auto) 12.4 % (0.0-12.0); Red Blood Cells 2.43 10^6/uL (4.0-5.20); Red Cell Distribution Width 18.6 % (11.8-14.3)
[2023-11-04 03:05] LABS: Alanine Aminotransferase 48 U/L (7-40); Albumin 3.9 g/dL (3.2-4.8); Alkaline Phosphatase 112 U/L (46-116); Anion Gap 15 (5-15); Aspartate Aminotransferase 84 U/L (13-40); BUN/Creatinine Ratio 18.4 (10.0-20.0); Blood Urea Nitrogen 14 mg/dL (9-23); Calcium 9.5 mg/dL (8.7-10.4); Carbon Dioxide 15 mmol/L (20-30); Chloride 106 mmol/L (98-107); Glucose 239 mg/dL (74-106); Potassium 3.7 mmol/L (3.5-5.1); Sodium 136 mmol/L (136-145)
[2023-11-04 03:06] LABS: Bilirubin, Total 0.3 mg/dL (0.2-1.0); Total Protein 7.2 g/dL (5.7-8.2)
[2023-11-04 03:11] LABS: Macrocytosis Slight; Platelet Estimate Decreased
[2023-11-04 03:14] LABS: Lactic Acid w/Reflex 3.2 mmol/L (0.4-2.0)
[2023-11-04 07:40] VITALS: PULSE 106; RESP 24; O2SAT 98
[2023-11-04] MEDS ORDERED: NITROGLYCERIN 0.4 MG SL TAB SL PRN (09:30)
[2023-11-04] MEDS ORDERED: ALBUTEROL SULF 2.5 MG/0.5ML(0.5%) NEB SOLN NEB PRN (09:30)
[2023-11-04] MEDS ORDERED: IPRATROPIUM BROM 0.5 MG/2.5ML INH SOL NEB PRN (09:30)
[2023-11-04] MEDS ORDERED: FUROSEMIDE 20 MG/2 ML VIAL IV SCH (10:00)
[2023-11-04] MEDS: Fenofibrate 160MG TABLETS PO SCH (10:00)
[2023-11-04] MEDS: ENOXAPARIN SOD 40 MG/0.4 ML SYRINGE SC SCH (10:00)
[2023-11-04] MEDS: PANTOPRAZOLE 40 MG TAB PO SCH (10:31)
[2023-11-04] MEDS: METOPROLOL TARTRATE 25 MG TAB PO SCH (10:33)
[2023-11-04] MEDS: FUROSEMIDE 40 MG/4 ML VIAL IV ONE (10:33)
[2023-11-04 11:20] VITALS: BP 118/55; PULSE 99; RESP 21; TEMP 99.9; O2SAT 98
[2023-11-04] MEDS: GABAPENTIN 300 MG CAP PO SCH (14:24)
[2023-11-04] MEDS: MORPHINE SULFATE INJ 2 MG/ml SYRG IV PRN ×2 (14:25→20:53)
[2023-11-04 17:27] LABS: Urine Bacteria None Seen /hpf (None Seen); Urine WBC None Seen /hpf (0 - 5)
[2023-11-04] MEDS ORDERED: DEXTROSE (50%) 50ML SYRG IV PRN (17:30)
[2023-11-04] MEDS ORDERED: levoFLOXacin 500MG 100 ML IV ONE (17:45)
[2023-11-04 17:58] LABS: Urine Blood Negative /uL (Negative); Urine Clarity Turbid (Clear); Urine Color Light-Yellow (Yellow); Urine Protein, UAD Negative (Negative); Urine Urobilinogen Normal (Negative); Urine pH 5.5 (5.0-9.0)
[2023-11-04] MEDS ORDERED: PATIENTS OWN MEDICATION (Simvastatin 1 TAB) PO SCH (18:00)
[2023-11-04 18:34] LABS: % Iron Saturation 23.6 % (15-50)
[2023-11-04 18:35] VITALS: PULSE 90; RESP 17; O2SAT 98
[2023-11-04 18:52] VITALS: BP 113/60; PULSE 90; RESP 17; TEMP 98.1; O2SAT 98
[2023-11-04 19:10] LABS: Ferritin 219.6 ng/mL (10-291); Folate (Folic Acid) 21.44 ng/mL (>5.38)
[2023-11-04] MEDS: cefTRIAXone 1GM/50ML D5W 50 ML IV ONE (19:51)
[2023-11-04 20:00] VITALS: PULSE 89; PULSE 91; RESP 20; O2SAT 97
[2023-11-04 21:00] VITALS: BP 139/66; PULSE 91; RESP 18; TEMP 97.9; O2SAT 97
[2023-11-04] MEDS: DOXYCYCLINE 100MG/250ML 250 ML IV SCH (21:00)
[2023-11-04] MEDS: AMITRIPTYLINE HCL 100 MG PO SCH (22:00)
[2023-11-04] MEDS: ATORVASTATIN 20 MG TAB PO SCH (23:16)
[2023-11-04] MEDS: ACCU-CHEK COMFORT CURVE STRIP VI SCH (23:17)
[2023-11-04] MEDS: InsuLIN REG 1unit/0.01ml Soln (100units/ml) SC SCH (23:23)
[2023-11-04] MEDS ORDERED: LORazepam 2MG/ML-1ML VIAL IV PRN (23:30)
[2023-11-05] VITALS (12 sets, daily range): BP systolic 121–154; BP diastolic 50–68; PULSE 86–98; RESP 16–19; TEMP 97.4–98.5; O2SAT 95–99
[2023-11-05] MEDS: FUROSEMIDE 40 MG/4 ML VIAL IV SCH (05:53)
[2023-11-05] MEDS: GABAPENTIN 400 MG CAP PO SCH (05:56)
[2023-11-05] MEDS: SERTRALINE HCL 50 MG TAB PO SCH (06:39)
[2023-11-05 06:54] LABS: Basophils # (auto) 0 10 ^3/uL (0-0.2); Basophils % (auto) 0.2 % (0.0-2.0); Hemoglobin 8.8 g/dL (12.2-16.2); Lymphocytes # (auto) 1.2 10 ^3/uL (0.4-5.4); Monocytes # (auto) 0.5 10 ^3/uL (0-1.3)
[2023-11-05 06:57] LABS: Eosinophils # (auto) 0.1 10 ^3/uL (0-0.8); Eosinophils % (auto) 1.3 % (0.0-7.0); Hematocrit 25.5 % (36.0-46.0); Lymphocytes % (auto) 26.9 % (10.0-50.0); Mean Corpuscular Hemoglobin 35.1 pg (28.0-32.0); Mean Corpuscular Hgb Conc. 34.6 g/dL (32.0-36.0); Mean Corpuscular Volume 101.3 fL (80.0-100.0); Monocytes % (auto) 11.9 % (0.0-12.0); Neutrophils # (auto) 2.6 10 ^3/uL (1.6-8.6); Neutrophils % (auto) 59.7 % (37.0-80.0); Nucleated Red Blood Cells % 0.2 %; Red Blood Cells 2.52 10^6/uL (4.0-5.20); Red Cell Distribution Width 18.1 % (11.8-14.3); White Blood Cell 4.4 10^3/uL (4.4-10.8)
[2023-11-05 07:09] LABS: Alanine Aminotransferase 37 U/L (7-40); Alkaline Phosphatase 92 U/L (46-116); Anion Gap 7 (5-15); Aspartate Aminotransferase 61 U/L (13-40); BUN/Creatinine Ratio 14.8 (10.0-20.0); Bilirubin, Total 0.4 mg/dL (0.2-1.0); Blood Urea Nitrogen 9 mg/dL (9-23); Calcium 9.5 mg/dL (8.5-10.1); Carbon Dioxide 25 mmol/L (20-30); Chloride 107 mmol/L (98-107); Glucose 210 mg/dL (74-106); Potassium 3.2 mmol/L (3.5-5.1); Sodium 139 mmol/L (136-145); Total Protein 7.3 g/dL (5.7-8.2)
[2023-11-05 08:11] LABS: Platelet Estimate Decreased
[2023-11-05] MEDS ORDERED: levoFLOXacin 500MG 100 ML IV SCH (10:00)
[2023-11-05] MEDS: cefTRIAXone 1GM/50ML D5W 50 ML IV SCH (10:04)
[2023-11-05] MEDS: PREGABALIN 25 MG CAP PO SCH (10:05)
[2023-11-05] MEDS: ASPirin 81 mg TAB PO SCH (10:05)
[2023-11-05] MEDS: ENALAPRIL MALEATE 2.5 MG TAB PO SCH (10:07)
[2023-11-05] MEDS: POTASSIUM CHL 20 Meq TABLET PO ONE (15:18)
[2023-11-05] MEDS ORDERED: OXYC325T14 PO (15:42)
[2023-11-05] MEDS ORDERED: GLIP10TA9 PO (16:00)
[2023-11-05] MEDS ORDERED: INSU100I54 SC (16:00)
[2023-11-05] MEDS ORDERED: CALC-606 PO (16:00)
[2023-11-05] MEDS ORDERED: CHOL500033 PO (16:00)
[2023-11-05] MEDS ORDERED: ERTU15TA PO (16:00)
[2023-11-05] MEDS ORDERED: ONDA-188 PO (16:00)
[2023-11-05] MEDS ORDERED: ALBU108A5 INH (16:00)
[2023-11-05] MEDS ORDERED: ALEN35TA18 PO (16:00)
[2023-11-05] MEDS ORDERED: DIPH50CA31 PO (16:00)
[2023-11-05] MEDS ORDERED: LACT10SO3 PO (16:00)
[2023-11-05] MEDS ORDERED: SEMA4INJ SC (16:00)
[2023-11-05] MEDS ORDERED: BUDE1AER15 INH (16:00)
[2023-11-05] MEDS ORDERED: INSU1INJ19 SC (16:00)
[2023-11-05] MEDS ORDERED: OXYC15TA77 PO (16:00)
[2023-11-05] MEDS ORDERED: POM PO (16:00)
[2023-11-05] MEDS: CYANOCOBALAMIN (B-12) 1000 MCG/1 ML VIAL IM ONE (17:59)
[2023-11-05] MEDS ORDERED: CYANOCOBALAMIN (B-12) 1000 MCG/1 ML VIAL IM ONE (19:15)
[2023-11-06] VITALS (10 sets, daily range): BP systolic 110–133; BP diastolic 41–82; PULSE 70–107; RESP 16–20; TEMP 97.8–98.6; O2SAT 93–100
[2023-11-06 07:13] LABS: Basophils # (auto) 0 10 ^3/uL (0-0.2); Basophils % (auto) 0.3 % (0.0-2.0); Eosinophils # (auto) 0.1 10 ^3/uL (0-0.8); Eosinophils % (auto) 1.1 % (0.0-7.0); Hematocrit 29.7 % (36.0-46.0); Lymphocytes # (auto) 1.6 10 ^3/uL (0.4-5.4); Lymphocytes % (auto) 30.1 % (10.0-50.0); Mean Corpuscular Hemoglobin 34.2 pg (28.0-32.0); Mean Corpuscular Hgb Conc. 33.8 g/dL (32.0-36.0); Mean Corpuscular Volume 101.1 fL (80.0-100.0); Monocytes # (auto) 0.6 10 ^3/uL (0-1.3); Neutrophils # (auto) 3.1 10 ^3/uL (1.6-8.6); Neutrophils % (auto) 57.5 % (37.0-80.0); Nucleated Red Blood Cells % 0.2 %; Red Blood Cells 2.94 10^6/uL (4.0-5.20); Red Cell Distribution Width 18.7 % (11.8-14.3); White Blood Cell 5.4 10^3/uL (4.4-10.8)
[2023-11-06 07:21] LABS: Chloride 104 mmol/L (98-107); Potassium 4.1 mmol/L (3.5-5.1); Sodium 136 mmol/L (136-145)
[2023-11-06 07:22] LABS: Anion Gap 8 (5-15); Calcium 10.1 mg/dL (8.5-10.1); Carbon Dioxide 24 mmol/L (20-30)
[2023-11-06 07:27] LABS: Glucose 314 mg/dL (74-106)
[2023-11-06 07:28] LABS: BUN/Creatinine Ratio 16.7 (10.0-20.0); Blood Urea Nitrogen 11 mg/dL (9-23); Magnesium 1.5 mg/dL (1.6-2.6)
[2023-11-06 07:38] LABS: CRP High Sensitivity 4.25 mg/dL (<1.0)
[2023-11-06] MEDS: CYANOCOBALAMIN (B-12) 1000 MCG/1 ML VIAL IM ONE (14:46)
[2023-11-06] MEDS: MAGNESIUM SULFATE 1GM/100ML 100 ML IV SCH (14:46)
[2023-11-06] MEDS: AMITRIPTYLINE HCL 25 MG TAB PO ONE (21:51)
[2023-11-06] MEDS: INSULIN LANTUS (GLARGINE) 1 /0.01ml (100units/ml) SC SCH (22:06)
[2023-11-07] VITALS (7 sets, daily range): BP systolic 108–129; BP diastolic 56–70; PULSE 97–114; RESP 17–20; TEMP 98–98.8; O2SAT 91–98
[2023-11-07 05:57] LABS: Basophils # (auto) 0 10 ^3/uL (0-0.2); Basophils % (auto) 0.4 % (0.0-2.0); Eosinophils # (auto) 0.1 10 ^3/uL (0-0.8); Eosinophils % (auto) 0.9 % (0.0-7.0); Hematocrit 33.2 % (36.0-46.0); Hemoglobin 11.6 g/dL (12.2-16.2); Lymphocytes # (auto) 2.7 10 ^3/uL (0.4-5.4); Lymphocytes % (auto) 40.2 % (10.0-50.0); Mean Corpuscular Hemoglobin 31.2 pg (28.0-32.0); Mean Corpuscular Hgb Conc. 35.1 g/dL (32.0-36.0); Mean Corpuscular Volume 88.9 fL (80.0-100.0); Monocytes # (auto) 0.6 10 ^3/uL (0-1.3); Monocytes % (auto) 8.1 % (0.0-12.0); Neutrophils # (auto) 3.5 10 ^3/uL (1.6-8.6); Neutrophils % (auto) 50.4 % (37.0-80.0); Red Blood Cells 3.73 10^6/uL (4.0-5.20); Red Cell Distribution Width 11.8 % (11.8-14.3); White Blood Cell 6.8 10^3/uL (4.4-10.8)
[2023-11-07 06:03] LABS: Chloride 106 mmol/L (98-107); Potassium 3.6 mmol/L (3.5-5.1); Sodium 140 mmol/L (136-145)
[2023-11-07 06:04] LABS: Anion Gap 8 (5-15); Carbon Dioxide 26 mmol/L (20-30)
[2023-11-07 06:09] LABS: Blood Urea Nitrogen 6 mg/dL (9-23); Glucose 103 mg/dL (74-106)
[2023-11-07] MEDS: FUROSEMIDE 20 MG TAB PO SCH (09:55)
[2023-11-07] MEDS: metFORMIN HYDROCHLORIDE 500 MG TAB PO SCH (09:55)
[2023-11-07] MEDS ORDERED: AMITRIPTYLINE HCL 25 MG TAB PO SCH (19:00)
== END 2023-11-07 18:00 | disposition home or self-care (01) | DRG 193 ==
LOC: ER 01:37 → EDBD 01:37 → TELE 09:52 → TELE-CENTR 18:39
PROVIDERS: ADMIT Internal Medicine; ATTEND Internal Medicine
PROC: 5A09357 Assistance with Respiratory Ventilation, Less than 24 Consecutive Hours, Continuous Positive Airway Pressure (ICD-10-PCS; principal; 2023-11-05)
DX: J15.9 Unspecified bacterial pneumonia (principal); G93.41 Metabolic encephalopathy; J96.01 Acute respiratory failure with hypoxia; E87.20 Acidosis, unspecified; J44.1 Chronic obstructive pulmonary disease with (acute) exacerbation; J44.0 Chronic obstructive pulmonary disease with (acute) lower respiratory infection; I69.351 Hemiplegia and hemiparesis following cerebral infarction affecting right dominant side; Z68.41 Body mass index [BMI] 40.0-44.9, adult; I50.32 Chronic diastolic (congestive) heart failure; E66.01 Morbid (severe) obesity due to excess calories; D64.9 Anemia, unspecified; I11.0 Hypertensive heart disease with heart failure; E11.42 Type 2 diabetes mellitus with diabetic polyneuropathy; G47.33 Obstructive sleep apnea (adult) (pediatric); F20.9 Schizophrenia, unspecified; E87.6 Hypokalemia; I25.10 Atherosclerotic heart disease of native coronary artery without angina pectoris; Z95.1 Presence of aortocoronary bypass graft; Z90.710 Acquired absence of both cervix and uterus; Z79.899 Other long term (current) drug therapy; Z79.82 Long term (current) use of aspirin; Z85.3 Personal history of malignant neoplasm of breast; Z82.3 Family history of stroke; Z82.49 Family history of ischemic heart disease and other diseases of the circulatory system; Z82.62 Family history of osteoporosis; Z83.3 Family history of diabetes mellitus; Z80.6 Family history of leukemia; W01.0XXA Fall on same level from slipping, tripping and stumbling without subsequent striking against object, initial encounter; Y93.89 Activity, other specified; Y99.8 Other external cause status; Y92.098 Other place in other non-institutional residence as the place of occurrence of the external cause; G24.01 Drug induced subacute dyskinesia; G51.0 Bell's palsy
CPT/HCPCS: 36415; 70450; 70551; 71045; 72125; 80048; 80053; 81001; 82270; 82607; 82728; 82746; 82962; 83036; 83540; 83550; 83605; 83615; 83735; 85025; 85045; 86141; 93005; 94660; 95819; 96361; 96374; 96375; 97110; 97116; 97163; 97530; G0378; J1815; J3490

== ENCOUNTER 2023-11-08 14:10 | Inpatient (IN) | payer OTHER, MEDICAID ==
[~2023-11-08] VITALS: Ht 157.5 cm; Wt 88.0 kg
[~2023-11-08 14:10] MED LIST changes: -ALBU108A14 IN; +ALBU108A5 INH; +ALEN35TA18 PO; +BUDE1AER15 INH; +CALC-606 PO; +CHOL500033 PO; +DIPH50CA31 PO; -DOXY1CAP57 PO; +ERTU15TA PO; +GLIP10TA9 PO; +INSU100I54 SC; +INSU1INJ19 SC; +LACT10SO3 PO; -NITR-87 PO; +ONDA-188 PO; +OXYC15TA77 PO; +OXYC325T14 PO; -PERCOT PO; +POM PO; +SEMA4INJ SC; -[UNRECOGNIZED DRUG - CODE]
[2023-11-08] MEDS: SODIUM CHLORIDE 0.9% 1,000 ML IV ONE ×2 (14:21→17:38)
[2023-11-08] MEDS: NOREPINEPHRINE 8 MG/250ML KIT 250 ML IV SCH (15:00)
[2023-11-08] MEDS ORDERED: NOREPINEPHRINE 8 MG/250ML KIT 250 ML IV SCH (15:00)
[2023-11-08] MEDS: NOREPINEPHRINE 8 MG/250ML KIT 250 ML IV ONE (15:06)
[2023-11-08 15:58] LABS: Basophils # (auto) 0 10 ^3/uL (0-0.2); Basophils % (auto) 0.2 % (0.0-2.0); Eosinophils # (auto) 0.1 10 ^3/uL (0-0.8); Eosinophils % (auto) 0.6 % (0.0-7.0); Hemoglobin 9.7 g/dL (12.2-16.2); Lymphocytes # (auto) 2.9 10 ^3/uL (0.4-5.4); Lymphocytes % (auto) 28.9 % (10.0-50.0); Mean Corpuscular Hemoglobin 33.9 pg (28.0-32.0); Mean Corpuscular Hgb Conc. 33.4 g/dL (32.0-36.0); Mean Corpuscular Volume 101.3 fL (80.0-100.0); Monocytes # (auto) 0.9 10 ^3/uL (0-1.3); Neutrophils # (auto) 6.1 10 ^3/uL (1.6-8.6); Neutrophils % (auto) 61.3 % (37.0-80.0); Nucleated Red Blood Cells % 0.1 %; Red Blood Cells 2.86 10^6/uL (4.0-5.20); Red Cell Distribution Width 18.6 % (11.8-14.3); White Blood Cell 9.9 10^3/uL (4.4-10.8)
[2023-11-08 16:07] LABS: Chloride 102 mmol/L (98-107); Potassium 3.4 mmol/L (3.5-5.1)
[2023-11-08 16:08] LABS: Anion Gap 10 (5-15); Calcium 9.6 mg/dL (8.7-10.4); Carbon Dioxide 22 mmol/L (20-30)
[2023-11-08 16:10] LABS: Sodium 134 mmol/L (136-145)
[2023-11-08 16:13] LABS: BUN/Creatinine Ratio 24.8 (10.0-20.0); Glucose 258 mg/dL (74-106)
[2023-11-08 16:17] LABS: Blood Urea Nitrogen 33 mg/dL (9-23)
[2023-11-08 17:01] LABS: Urine Bacteria None Seen /hpf (None Seen)
[2023-11-08 17:12] LABS: Urine Blood Negative /uL (Negative); Urine Budding Yeast OCCASIONAL /hpf (None Seen); Urine Clarity Clear (Clear); Urine Color Light-Yellow (Yellow); Urine Protein, UAD TRACE (Negative); Urine Specific Gravity 1.013 (1.001-1.035); Urine Urobilinogen Normal (Negative); Urine WBC 3 /hpf (0 - 5)
[2023-11-08] MEDS ORDERED: DOCUSATE SOD 100 MG CAP PO PRN (19:15)
[2023-11-08] MEDS ORDERED: ACETAMINOPHEN 325 MG TAB PO PRN (19:15)
[2023-11-08 19:30] VITALS: PULSE 93; RESP 10; O2SAT 100
[2023-11-08] MEDS ORDERED: ALBUTEROL SULF HFA 90MCG INH 200DOSE IN SCH (19:30)
[2023-11-08] MEDS ORDERED: BUDESONIDE FORMOTEROL FUMARATE INH SCH (19:30)
[2023-11-08] MEDS: LACTATED RINGER'S 500 ML IV ONE (20:09)
[2023-11-08] MEDS: SODIUM CHLOR 0.9% PF (SALINE LOCK) 10ML VIAL/SYR IV SCH (21:31)
[2023-11-09] VITALS (9 sets, daily range): BP systolic 108–148; BP diastolic 46–62; PULSE 94–107; RESP 18–20; TEMP 98.1–98.7; O2SAT 97–99
[2023-11-09] MEDS: SERTRALINE HCL 50 MG TAB PO SCH (07:12)
[2023-11-09] MEDS: INSULIN LISPRO (HUMAN) 100 UNITS/ML ML SC SCH (08:03)
[2023-11-09] MEDS: FUROSEMIDE 20 MG TAB PO SCH (08:04)
[2023-11-09] MEDS: PANTOPRAZOLE 40 MG TAB PO SCH (08:04)
[2023-11-09] MEDS: CHOLECALCIFEROL (VITD3) 1,000UNIT=25mCg TAB PO SCH (08:04)
[2023-11-09] MEDS: glipiZIDE 5 MG TAB PO SCH (08:05)
[2023-11-09] MEDS: CALCIUM W/VIT D (600MG/400IU) TAB PO SCH (08:05)
[2023-11-09] MEDS ORDERED: AMITRIPTYLINE HCL 25 MG TAB PO SCH (10:00)
[2023-11-09] MEDS: ALENDRONATE SODIUM 10 MG TAB PO SCH (11:00)
[2023-11-09] MEDS ORDERED: ENOXAPARIN SOD 40 MG/0.4 ML SYRINGE SC SCH (11:52)
[2023-11-09] MEDS: HYDROcodone-ACET 5/325MG TAB PO PRN (13:06)
[2023-11-09] MEDS: POTASSIUM CHL 20MEQ/100ML 100 ML IV SCH (13:49)
[2023-11-09] MEDS: INSULIN LANTUS (GLARGINE) 1 /0.01ml (100units/ml) SC SCH (18:01)
[2023-11-09] MEDS: ATORVASTATIN 20 MG TAB PO SCH (18:01)
[2023-11-09] MEDS: AMITRIPTYLINE HCL 25 MG TAB PO SCH (21:19)
[2023-11-09] MEDS: FENOFIBRATE 160 MG PO SCH (22:00)
[2023-11-09] MEDS: [UNRECOGNIZED DRUG - OTHER] PO SCH (22:00)
[2023-11-10] VITALS (9 sets, daily range): BP systolic 110–156; BP diastolic 54–80; PULSE 93–116; RESP 17–20; TEMP 98.1–98.8; O2SAT 92–98
[2023-11-10 05:54] LABS: Basophils # (auto) 0 10 ^3/uL (0-0.2); Basophils % (auto) 0.2 % (0.0-2.0); Eosinophils # (auto) 0.1 10 ^3/uL (0-0.8); Eosinophils % (auto) 1.1 % (0.0-7.0); Mean Corpuscular Hemoglobin 34.5 pg (28.0-32.0); Monocytes # (auto) 0.4 10 ^3/uL (0-1.3)
[2023-11-10 05:57] LABS: Hematocrit 27.4 % (36.0-46.0); Hemoglobin 9.4 g/dL (12.2-16.2); Lymphocytes # (auto) 2.1 10 ^3/uL (0.4-5.4); Lymphocytes % (auto) 38.4 % (10.0-50.0); Mean Corpuscular Hgb Conc. 34.2 g/dL (32.0-36.0); Mean Corpuscular Volume 101.1 fL (80.0-100.0); Monocytes % (auto) 7.2 % (0.0-12.0); Neutrophils # (auto) 2.9 10 ^3/uL (1.6-8.6); Neutrophils % (auto) 53.1 % (37.0-80.0); Nucleated Red Blood Cells % 0.1 %; Red Blood Cells 2.71 10^6/uL (4.0-5.20); Red Cell Distribution Width 18.7 % (11.8-14.3); White Blood Cell 5.4 10^3/uL (4.4-10.8)
[2023-11-10 06:11] LABS: Alanine Aminotransferase 45 U/L (7-40); Albumin 4.1 g/dL (3.2-4.8); Alkaline Phosphatase 97 U/L (46-116); Anion Gap 7 (5-15); Aspartate Aminotransferase 91 U/L (13-40); BUN/Creatinine Ratio 21.7 (10.0-20.0); Bilirubin, Total 0.4 mg/dL (0.2-1.0); Blood Urea Nitrogen 15 mg/dL (9-23); Calcium 9.9 mg/dL (8.7-10.4); Carbon Dioxide 25 mmol/L (20-30); Chloride 106 mmol/L (98-107); Glucose 210 mg/dL (74-106); Potassium 3.8 mmol/L (3.5-5.1); Sodium 138 mmol/L (136-145); Total Protein 7.5 g/dL (5.7-8.2)
[2023-11-10] MEDS: ONDANSETRON HCL 4 MG/2 ML VIAL IV PRN (08:25)
[2023-11-10] MEDS: OXYCODONE W/ ACETAMINOPHEN 5/325MG TABLET PO PRN (16:50)
[2023-11-10] MEDS: SUCRALFATE 1 GM/10 ML ORAL SUSP GT SCH (21:48)
[2023-11-10] MEDS: GABAPENTIN 300 MG CAP PO SCH (21:49)
[2023-11-10] MEDS: PERPHENAZINE 16 MG PO SCH (21:50)
[2023-11-11] VITALS (8 sets, daily range): BP systolic 0–154; BP diastolic 49–87; PULSE 90–121; RESP 18–20; TEMP 97.3–99.7; O2SAT 92–95
[2023-11-11 06:14] LABS: Anion Gap 8 (5-15); Carbon Dioxide 26 mmol/L (20-30); Chloride 104 mmol/L (98-107); Potassium 3.8 mmol/L (3.5-5.1); Sodium 138 mmol/L (136-145)
[2023-11-11 06:20] LABS: BUN/Creatinine Ratio 18.8 (10.0-20.0); Blood Urea Nitrogen 13 mg/dL (9-23); Glucose 212 mg/dL (74-106)
[2023-11-11 06:41] LABS: Basophils # (auto) 0 10 ^3/uL (0-0.2); Basophils % (auto) 0.2 % (0.0-2.0); Lymphocytes # (auto) 1.8 10 ^3/uL (0.4-5.4); Monocytes # (auto) 0.4 10 ^3/uL (0-1.3); Neutrophils # (auto) 2.8 10 ^3/uL (1.6-8.6); Red Cell Distribution Width 18.9 % (11.8-14.3); White Blood Cell 5.1 10^3/uL (4.4-10.8)
[2023-11-11 06:44] LABS: Eosinophils # (auto) 0.1 10 ^3/uL (0-0.8); Hematocrit 26.7 % (36.0-46.0); Hemoglobin 9.3 g/dL (12.2-16.2); Lymphocytes % (auto) 35.9 % (10.0-50.0); Mean Corpuscular Hemoglobin 35.4 pg (28.0-32.0); Mean Corpuscular Volume 101.2 fL (80.0-100.0); Monocytes % (auto) 7.7 % (0.0-12.0); Neutrophils % (auto) 55.2 % (37.0-80.0); Nucleated Red Blood Cells % 0.1 %; Red Blood Cells 2.64 10^6/uL (4.0-5.20)
[2023-11-11] MEDS: PERPHENAZINE 4 MG PO SCH (21:51)
[2023-11-12 01:00] VITALS: BP 119/59; PULSE 77; RESP 16; TEMP 98.3; O2SAT 93
[2023-11-12 05:00] VITALS: BP 97/50; PULSE 128; RESP 22; TEMP 97.6; O2SAT 96
[2023-11-12 06:17] LABS: Basophils # (auto) 0 10 ^3/uL (0-0.2); Eosinophils # (auto) 0.1 10 ^3/uL (0-0.8); Eosinophils % (auto) 1.1 % (0.0-7.0); Monocytes # (auto) 0.6 10 ^3/uL (0-1.3); Monocytes % (auto) 6.7 % (0.0-12.0); White Blood Cell 8.3 10^3/uL (4.4-10.8)
[2023-11-12 06:21] LABS: Basophils % (auto) 0.2 % (0.0-2.0); Hematocrit 28.8 % (36.0-46.0); Lymphocytes # (auto) 3.4 10 ^3/uL (0.4-5.4); Lymphocytes % (auto) 41.4 % (10.0-50.0); Mean Corpuscular Hemoglobin 35.3 pg (28.0-32.0); Mean Corpuscular Hgb Conc. 34.8 g/dL (32.0-36.0); Mean Corpuscular Volume 101.5 fL (80.0-100.0); Neutrophils # (auto) 4.2 10 ^3/uL (1.6-8.6); Neutrophils % (auto) 50.6 % (37.0-80.0); Nucleated Red Blood Cells % 0.2 %; Red Blood Cells 2.84 10^6/uL (4.0-5.20); Red Cell Distribution Width 19.4 % (11.8-14.3)
[2023-11-12 06:36] LABS: Anion Gap 9 (5-15); Carbon Dioxide 26 mmol/L (20-30); Chloride 103 mmol/L (98-107); Potassium 3.8 mmol/L (3.5-5.1); Sodium 138 mmol/L (136-145)
[2023-11-12 06:38] LABS: Calcium 9.7 mg/dL (8.7-10.4)
[2023-11-12 06:42] LABS: Glucose 172 mg/dL (74-106)
[2023-11-12 06:43] LABS: BUN/Creatinine Ratio 18.6 (10.0-20.0); Blood Urea Nitrogen 13 mg/dL (9-23)
[2023-11-12 08:00] VITALS: PULSE 104; RESP 18; O2SAT 96
[2023-11-12 08:56] VITALS: BP 106/69; PULSE 105; RESP 19; TEMP 98.3; O2SAT 91
[2023-11-12 12:26] VITALS: BP 95/56; PULSE 115; RESP 18; TEMP 98; O2SAT 92
[2023-11-12 14:12] VITALS: BP 115/72; PULSE 109; RESP 16
== END 2023-11-12 19:00 | disposition home health service (06) | DRG 640 ==
LOC: EDBD 14:10 → EDUNIT# 14:10 → ER 14:10 → TELE-WESTW 19:16 → TELE 19:16 → TELE-WESTW 11-09 03:26
PROVIDERS: ADMIT Internal Medicine Geriatric Medicine; ATTEND Internal Medicine Geriatric Medicine
DX: E86.0 Dehydration (principal); N17.0 Acute kidney failure with tubular necrosis; D61.818 Other pancytopenia; I50.32 Chronic diastolic (congestive) heart failure; I95.9 Hypotension, unspecified; I11.0 Hypertensive heart disease with heart failure; D53.9 Nutritional anemia, unspecified; G47.33 Obstructive sleep apnea (adult) (pediatric); E66.01 Morbid (severe) obesity due to excess calories; F20.9 Schizophrenia, unspecified; E11.42 Type 2 diabetes mellitus with diabetic polyneuropathy; J44.9 Chronic obstructive pulmonary disease, unspecified; T45.1X5A Adverse effect of antineoplastic and immunosuppressive drugs, initial encounter; I25.10 Atherosclerotic heart disease of native coronary artery without angina pectoris; Z86.73 Personal history of transient ischemic attack (TIA), and cerebral infarction without residual deficits; Z85.3 Personal history of malignant neoplasm of breast; Z95.1 Presence of aortocoronary bypass graft; Z90.710 Acquired absence of both cervix and uterus; Z83.3 Family history of diabetes mellitus; Z82.49 Family history of ischemic heart disease and other diseases of the circulatory system; Z80.6 Family history of leukemia; Z82.62 Family history of osteoporosis; Z79.4 Long term (current) use of insulin; Z68.35 Body mass index [BMI] 35.0-35.9, adult; Y92.89 Other specified places as the place of occurrence of the external cause
CPT/HCPCS: 36415; 70450; 71045; 80048; 80053; 81001; 82533; 82962; 83605; 84484; 85025; 87081; 93005; 93306; 97116; 97163; 97530; 99291; G0378; J1815; J2405; J3480

== ENCOUNTER 2023-11-19 13:32 | Emergency (ER) | payer OTHER, MEDICAID ==
[~2023-11-19] VITALS: Ht 157.5 cm; Wt 90.7 kg
[~2023-11-19 13:32] MED LIST changes: -FENO160T PO; -GLIP10TA9 PO
[2023-11-19 16:14] LABS: Urine Bacteria None Seen /hpf (None Seen)
[2023-11-19] MEDS: SODIUM CHLORIDE 0.9% 500 ML IVB ONE (16:16)
[2023-11-19 16:31] LABS: Urine Blood TRACE /uL (Negative); Urine Budding Yeast FEW /hpf (None Seen); Urine Clarity Turbid (Clear); Urine Color Colorless (Yellow); Urine Hyaline Cast FEW /lpf (0 - 2); Urine Mucus FEW (None Seen); Urine Protein, UAD Negative (Negative); Urine Specific Gravity 1.016 (1.001-1.035); Urine Urobilinogen Normal (Negative); Urine WBC 489 /hpf (0 - 5); Urine WBC Clumps PRESENT /hpf (None Seen); Urine pH 5.5 (5.0-9.0)
[2023-11-19 16:54] LABS: Basophils # (auto) 0 10 ^3/uL (0-0.2); Basophils % (auto) 0.4 % (0.0-2.0); Eosinophils # (auto) 0.1 10 ^3/uL (0-0.8); Hemoglobin 11.1 g/dL (12.2-16.2); Lymphocytes # (auto) 2.7 10 ^3/uL (0.4-5.4); Lymphocytes % (auto) 33.9 % (10.0-50.0); Mean Corpuscular Hemoglobin 34.6 pg (28.0-32.0); Mean Corpuscular Hgb Conc. 33.5 g/dL (32.0-36.0); Mean Corpuscular Volume 103.4 fL (80.0-100.0); Monocytes # (auto) 0.8 10 ^3/uL (0-1.3); Monocytes % (auto) 10.4 % (0.0-12.0); Neutrophils # (auto) 4.3 10 ^3/uL (1.6-8.6); Neutrophils % (auto) 54.3 % (37.0-80.0); Nucleated Red Blood Cells % 0.4 %; Red Cell Distribution Width 19.2 % (11.8-14.3); White Blood Cell 7.9 10^3/uL (4.4-10.8)
[2023-11-19 17:19] LABS: Alanine Aminotransferase 22 U/L (7-40); Albumin 4.7 g/dL (3.2-4.8); Alkaline Phosphatase 136 U/L (46-116); Anion Gap 12 (5-15); Aspartate Aminotransferase 42 U/L (13-40); BUN/Creatinine Ratio 12.4 (10.0-20.0); Bilirubin, Total 0.4 mg/dL (0.2-1.0); Blood Urea Nitrogen 13 mg/dL (9-23); Carbon Dioxide 27 mmol/L (20-30); Chloride 99 mmol/L (98-107); Glucose 205 mg/dL (74-106); Lipase 22 U/L (12-53); Magnesium 1.9 mg/dL (1.6-2.6); Sodium 138 mmol/L (136-145); Total Protein 8.8 g/dL (5.7-8.2)
[2023-11-19] MEDS: cefTRIAXone 1GM/50ML D5W 50 ML IV ONE (17:38)
[2023-11-19] MEDS: IOHEXOL 300 MG/ML 100ML BOTTLE IJ ONE (18:12)
[2023-11-19] MEDS ORDERED: CEPH500T PO (19:42)
[2023-11-19] MEDS ORDERED: MAGN100T6 OR (19:42)
[2023-11-19 20:13] VITALS: BP 114/51; PULSE 106; RESP 19; TEMP 99.2; O2SAT 93
== END 2023-11-19 20:15 | disposition home or self-care (01) ==
LOC: ER 13:32
DX: K59.00 Constipation, unspecified (principal); R10.9 Unspecified abdominal pain; E11.65 Type 2 diabetes mellitus with hyperglycemia; E11.21 Type 2 diabetes mellitus with diabetic nephropathy; E66.01 Morbid (severe) obesity due to excess calories; N39.0 Urinary tract infection, site not specified; I25.810 Atherosclerosis of coronary artery bypass graft(s) without angina pectoris; I11.0 Hypertensive heart disease with heart failure; I50.9 Heart failure, unspecified; E78.5 Hyperlipidemia, unspecified; J44.9 Chronic obstructive pulmonary disease, unspecified; Z68.36 Body mass index [BMI] 36.0-36.9, adult; Z85.9 Personal history of malignant neoplasm, unspecified; Z98.890 Other specified postprocedural states; Z79.899 Other long term (current) drug therapy
CPT/HCPCS: 36415; 71046; 74177; 80053; 81001; 83690; 83735; 84443; 85025; 96365; 99285; J0696; Q9967

== ENCOUNTER 2024-04-02 06:12 | Emergency (ER) | payer OTHER, MEDICAID ==
[~2024-04-02] VITALS: Ht 157.5 cm; Wt 90.9 kg
[~2024-04-02 06:12] MED LIST changes: +CEPH500T PO; +MAGN100T6 OR
--- NOTE | 2024-04-02 07:12 | ED.PDOC ---
Shae. trauma (HPI) HPI Comments 69 y.o female presents to the ED via EMS s/p mechanical fall 45 minutes prior to arrival. EMS reports patient got up to use the restroom, ambulates with her walker which got stuck on a pillow, causing her to have a ground level fall. Patient reports falling backwards, hitting the back of her head. No LOC noted. Patient arrives to the ED with a C-Collar placed by EMS on scene due to head and neck pain. EMS reports contusion to the posterior side of the head. Patient complains of right hip and femur pain as well. Patient has extensive history of COPD, CVA, HDL, HTN, CHF, TIA, and is on ASA. Chief Complaint: Fall Injury Time Seen by MD: 06:30 Primary Care Provider: UNKNOWN Reviewed notes: Nurses Notes, Pharmaceutical Sales Representative Notes, Medications, Allergies Allergies: Coded Allergies: NO KNOWN ALLERGIES (Unverified , 06/25/14) Home Meds Active Scripts Magnesium Citrate (MAGNESIUM CITRATE) 100 Mg Tab, 2-4 TAB OR QHSP PRN, #30 TAB prn constipation Prov:PER WALLACE MD 11/19/23 Cephalexin Monohydrate (Cephalexin) 500 Mg Tab, 1 TAB PO QID for 10 Days, #40 TAB Prov:PER WALLACE MD 11/19/23 Potassium Chloride (POTASSIUM CHLORIDE CR) 10 Meq Tb, 1 TAB PO DAILY, #30 TAB 5 Refills Prov:FUNMILAYO ARCEO MD 05/17/23 Furosemide (Furosemide) 20 Mg Tab, 1 TAB PO DAILY, #30 TAB 5 Refills Prov:FUNMILAYO ARCEO MD 05/17/23 Reported Medications Patients Own Medication (PATIENTS OWN MEDICATION) ., 4 TAB PO QPM PTS OWN MED-OBTAIN FROM PT AND SEND TO RX DRUG: PERPHENAZINE 4 MG TABLET FREQ: TAKE 4 TABLETS (16 MG) BY MOUTH EVERY EVENING RX# EXP: DATE DISP: TECH: RPH: 11/05/23 Budesonide-Formoterol Fumarate (Breyna 80-4.5 Mcg/Act) 1 Aer Aer, 1 AER INH UD 11/05/23 Albuterol Sulfate (Albuterol Sulfate Hfa) 108 Mcg/Act Aer, 108 MCG INH UD 11/05/23 Insulin Lispro (Insulin Lispro Kwikpen) 100 Unit/Ml Inj, 7 UNIT SC TIDWM 11/05/23 Ondansetron HCl (Ondansetron Hydrochloride) 4 Mg Tab, 1 TAB PO DAILY 11/05/23 Lactulose (Lactulose) 10 Gm/15 Ml Yaz, 30 ML PO DAILY Take 30 mL by mouth once daily for BOWEL MANAGEMENT. May hold if LOOSE STOOLS. 11/05/23 Ertugliflozin l-Pyroglutamic A (Steglatro) 15 Mg Tab, 1 TAB PO DAILY 11/05/23 Semaglutide (Ozempic) 4 Mg/3 Ml Inj, 1 MG SC QWEEKLY 11/05/23 Calcium Carbonate-Cholecalcife (Ultra Calcium + Vitamin D 600-10 mg-Mcg) 1 Tab Tab, 1 TAB PO DAILY 11/05/23 Cholecalciferol (Vitamin D-3) 5,000 Unit Cap, 1 CAP PO DAILY 11/05/23 Oxycodone HCl (Oxycontin) 15 Mg Tab, 1 TAB PO Q12HR Take 1 tablet by mouth every 12 hours at 7 AM and at 7 PM. 11/05/23 Insulin Glargine (Basaglar Kwikpen) 100 Unit/Ml Inj, 36 UNIT SC QPM 11/05/23 Diphenhydramine Hcl (BANOPHEN) 50 Mg Cap, 2 CAP PO HS 11/05/23 Alendronate Sodium (Alendronate Sodium) 35 Mg Tab, 10 MG PO QAM 11/05/23 Oxycodone W/ Acetaminophen (Apap/Oxycodone) 1 Tab Tab, 1 TAB PO BID PRN for BREAKTHROUGH PAIN [10/325 MG] 11/05/23 Enalapril Maleate (Enalapril Maleate) 5 Mg Tab, 1 TAB PO DAILY 05/15/23 Pantoprazole Sodium Sesquihydr (Pantoprazole Sodium Dr) 40 Mg Tab, 20 MG PO DAILY 05/08/23 Gabapentin (Gabapentin) 600 Mg Tab, 1 TAB PO TID 05/08/23 Simvastatin (Simvastatin) 40 Mg Tab, 1 TAB PO QPM 06/25/14 Sertraline Hcl (Sertraline Hcl) 100 Mg Tab, 2 TAB PO QAM 06/25/14 Amitriptyline Hcl (Amitriptyline Hcl) 100 Mg Tab, 2 TAB PO QPM 06/25/14 Information Source: Patient, Emergency Med Personnel Mode of Arrival: EMS Severity: Moderate Timing: Hours Duration: Since onset Location: Head, (R) Hip, Neck Mechanism: Fall Associated signs and symtoms: Other Past Medical History PAST MEDICAL HISTORY: CAD, Cancer, CHF, COPD, CVA, Depression, DM, High Lipids, HTN, Schizophrenia, TIA Surgical History: CABG, Cholecystectomy, Hysterectomy, PTCA RELOCATION SPECIALIST History: No Pertinent RELOCATION SPECIALIST History Family History Family History: Reviewed,noncontributory to illness Social History Smoker: Non-Smoker Alcohol: Denies ETOH Use Drugs: Denies Drug Use Lives In: Home Constitutional: denies: chills, diaphoresis, fatigue, fever, malaise, sweats, weakness, others EENTM: denies: blurred vision, double vision, ear bleeding, ear discharge, ear drainage, ear pain, ear ringing, eye pain, eye redness, hearing loss, mouth p ain, mouth swelling, nasal discharge, nose bleeding, nose congestion, nose pain, photophobia, tearing, throat pain, throat swelling, voice changes, others Respiratory: denies: cough, hemoptysis, orthopnea, SOB at rest, shortness of br eath, SOB with excertion, stridor, wheezing, others Cardiovascular: denies: chest pain, dizzy spells, diaphoresis, Dyspnea on exertion, edema, irregular heart beat, left arm pain, lightheadedness, palpitations, PND, syncope, others Gastrointestinal: denies: abdomen distended, abdominal pain, blood streaked bowels, constipated, diarrhea, dysphagia, difficulty swallowing, hematemesis, melena, nausea, poor appetite, poor fluid intake, rectal bleeding, rectal pain, vomiting, others Genitourinary: denies: abnormal vagina bleeding, burning, dyspareunia, dysuria, flank pain, frequency, hematuria, incontinence, pain, , vagina discharge, urgency, others Neurological: reports: headache; denies: dizziness, fainting, left sided numbness, left sided weakness, numbness, paresthesia, pre-existing deficit, right sided numbness, right sided weakness, seizure, speech problems, tingling, tremors, weakness, others Musculoskeletal: reports: muscle pain, neck pain, others (right hip and femur pain ); denies: back pain, gout, joint pain, joint swelling, muscle stiffness Integumetry: denies: bruises, change in color, change in hair/nails, dryness, laceration, lesions, lumps, rash, wounds, others Allergic/Immunocompromised: denies: Difficulty Healing, Frequent Infections, Hives, Itching, others Hematologic/Lymphatic: denies: anemia, blood clots, easy bleeding, easy bruising, swollen glands, others Endocrine: denies: excessive hunger, excessive sweating, excessive thirst, excessive urination, flushing, intolerance to cold, intolerance to heat, unexplained weight gain, unexplained weight loss, others Psychiatric: denies: anxiety, bipolar disorder, depression, hopeless, panic disorder, schizophrenia, sleepless, suicidal, others All Other Systems: Reviewed and Negative Physical Exam General Appearance: Mild Distress, Other (C-collar in place) HEENT: Normal ENT Inspection Neck: Other (Cervical C-collar in place. Diffused tenderness to the cervical spine. +) Respiratory: No Respiratory Distress, Normal Breath Sounds Cardiovascular: Normal Peripheral Pulses, Regular Rate/Rhythm Breast Exam: Deferred Gastrointestinal: Non Tender Genitalia: Deferred Pelvic: Deferred Rectal: Deferred Extremities: No pedal edema (on bilateral lower extremities ), Tender (to the right hip and right femur no obvbious deformity ) Musculoskeletal : Extremity Location: Back Apperance: Other (non tender ) Neurologic: Alert, Normal Mood, No Sensory Deficits Cerebellar Function: Normal Reflexes: NOT DONE Skin: Other (small contusion hematoma measuing 4x4cm to the posterior scalp ) Lymphatic: No Adenopathy Was a procedure done? Was a procedure done?: No Differential Diagnosis Multiple Trauma: Fractures, Spine Injury, Abrasions, Contusion, Hematoma, Other (Intracranial hemorrhage) Neck Injury: Cervical Muscle Spasm, Cervical Sprain, Cervical Strain, Cervical Fracture X-Ray, Labs, Meds, VS Vital Signs Date Time Temp Pulse Resp B/P (MAP) Pulse Ox O2 Delivery O2 Flow Rate FiO2 04/02/24 08:38 85 18 153/83 04/02/24 08:00 98.1 84 18 154/83 (106) 94 98.1 04/02/24 08:00 84 17 94 Room Air* 0 21 04/02/24 06:18 97.6 85 16 120/76 (91) 98 Current Medications Medications (Trade) Dose Ordered Sig/Kerry Route Start Time Stop Time Status Last Admin Morphine Sulfate 4 mg ONCE ONCE IV 04/02/24 07:00 04/02/24 07:01 DC 04/02/24 08:38 Ondansetron HCl (Zofran) 4 mg ONCE ONCE IV 04/02/24 07:00 04/02/24 07:01 DC 04/02/24 08:38 CLINICAL INFORMATION: 69 years old, Female; rule out bleed. No other clinical information provided. TECHNIQUE: Axial imaging was obtained through the brain without contrast. Axial CT imaging of the cervical spine was also obtained without contrast. Coronal and sagittal reformatted images were obtained, reviewed, and stored. One or more of the following dose reduction techniques were used: Automated exposure control. Adjustment of mA and/or kV according to patient size. CTDIvol = 61.64 mGy DLP = 986.77 mGy-cm COMPARISON: CT HEAD WITHOUT CONTRAST on DOS: 11/11/23, MRI BRAIN HEAD WO CONTRAST on DOS: 11/05/23, CT CERVICAL WITHOUT CONTRAST on DOS: 11/04/23 FINDINGS: CT HEAD: Acute subdural hemorrhage along the falx cerebri bilaterally measuring up to 0.5 cm in greatest thickness on the left, extending along the entire anterior to posterior extent of the falx at superior aspect, approximately 11 cm in proximal to distal dimension and up to 4.3 cm in greatest craniocaudal dimension. The right-sided subdural hemorrhage along the falx is smaller, measuring up to 0.25 cm in thickness, extending up to 6 cm in greatest anterior to posterior dimension and 1.6 cm in craniocaudal dimension. There is no significant midline shift. Minimal mass effect due to the subdural hemorrhage. Ventricles and basal cisterns are within normal limits. There is a small to moderate right posterior scalp hematoma. The calvarium is unremarkable. Paranasal sinuses and mastoid air cells are clear. CT CERVICAL SPINE: There is straightening of the normal cervical lordosis. No significant spondylolisthesis. Vertebral body heights are maintained. Posterior elements are intact. No evidence of acute fracture. Multilevel moderate disc space narrowing with associated endplate sclerosis and endplate spurring. Multilevel facet and uncinate hypertrophy with areas of moderate to severe neural foraminal stenosis, greatest at the C5-C6 level. There are areas of lucency in the posterior aspect of the C4 vertebral body, which may be focal areas of osteopenia / demineralization rather than intraosseous lesion. Prevertebral and paraspinal soft tissues are unremarkable. IMPRESSION: 1. Acute subdural hemorrhage along both sides of the falx cerebri as detailed above. Minimal mass effect. No midline shift. 2. Small to moderate right posterior scalp hematoma. 3. No evidence of acute fracture or spondylolisthesis in the cervical spine. 4. Focal areas of lucency in the posterior aspect of the C4 vertebral body may be due to focal areas of osteopenia rather than intraosseous lesion. Nonemergent MRI of the cervical spine could be considered to further characterize. This could be done outpatient basis. Critical findings Critical Result: Acute intracranial hemorrhage. Findings discussed with FIONA CARO by Dr. Sales by phone at 04/02/2024 10:05 AM CANE FLUME WATCHMAN, and acknowledged receipt and understanding of the findings. .. LINICAL INDICATION: 69 years old, Female; RO FRACTURE. TECHNIQUE: Noncontrast CT of the side Extremity was performed. Sagittal and coronal reformatted images are provided. COMPARISON: Radiographs of the right femur performed on 04/02/2024 CT Dose: CTDI volume is 28.99 mGy. Dose-length product is 714.05 mGy*cm FINDINGS: No fracture or dislocation. Joint spaces are maintained. There is mineralization in the right gluteus minimus tendon at its insertion compatible with calcific tendinitis. There is right hip subcutaneous edema. IMPRESSION: 1. No fracture or dislocation. 2. Calcific tendinitis in the right gluteus minimus tendon. Mild soft tissue edema. CLINICAL INDICATION: Pain, trauma RO FRACTURE TECHNIQUE: XY R FEMUR XRAY Comparison: XY L RIB X RAY on DOS: 06/14/23 FINDINGS/IMPRESSION: : There is no evidence of acute fracture or dislocation. Soft tissues are unremarkable. 69-year-old female presents here status post ground level fall. Falling backwards after tripping with a walker. She was initially found to be in cervical C-spine precautions with a cervical collar in place. She reported headache and neck pain. CT scan of the brain was done which does demonstrates bilateral subdural hematomas to bilateral falx cerebri with no midline shift. I spoke to radiologist Dr. Sales at 8:05 a.m. regarding her clinical findings. Patient has a GCS 15 and appear stable. I also have performed a CT of her hip which is negative. X-ray of the right femur is negative. She also has a negative C-spine CT. I have removed her cervical collar. At this time blood work has been ordered and is pending. Transfer was started and patient has been accepted to [facility] by Dr. Tang. I discussed with regarding starting platelets given patient is on aspirin however he advised that some of his neurosxs like it and some do not so it was better to not start platelet transfusion. I have discussed with the patient's critical results and need for transfer. Patient was agreeable. Time of 1ST Reevaluation: 06:53 Reevaluation 1ST: Unchanged Time of 2ND Reevaluation: 09:30 Reevaluation 2ND: Improved Consultation: Other ([facility]) Patient Education/Counseling: Diagnosis, Treatment, Prognosis Family Education/Counseling: No Family Present Departure 1 Departure Time of Disposition: 08:25 Impression: Primary Impression: Subdural hematoma Additional Impression: Fall Qualified Codes: W19.XXXA - Unspecified fall, initial encounter Disposition: 02 SHORT TERM HOSPITAL ([facility]) Condition: Critical Critical Care Note Critical Care Time?: Yes (35 min-critical care time only) Critical care comment: Time spent evaluating the patient, discussing her case with the radiologist, discussing results with the patient, transferring patient to another hospital and discussing care with transferring hospital. Stability Stability form required: No I personally scribed for FIONA CASTRO MD ([email or web address]) on 04/02/24 at 07:12. Electronically submitted by Margarette Cardona ([facility]). I personally scribed for FIONA CASTRO MD ([email or web address]) on 04/02/24 at 07:12. Electronically submitted by Margarette Cardona ([facility]). I personally scribed for FIONA CASTRO MD ([email or web address]) on 04/02/24 at 08:26. Electronically submitted by Margarette Cardona ([facility]). FIONA CASTRO MD Apr 02, 2024 07:12
--- NOTE | 2024-04-02 07:59 | DVH ---
CLINICAL INDICATION: Pain, trauma RO FRACTURE TECHNIQUE: XY R FEMUR XRAY Comparison: XY L RIB X RAY on DOS: 06/14/23 FINDINGS/IMPRESSION: : There is no evidence of acute fracture or dislocation. Soft tissues are unremarkable.
[2024-04-02 08:00] VITALS: PULSE 84; RESP 17; O2SAT 94
--- NOTE | 2024-04-02 08:11 | DVH ---
CLINICAL INDICATION: 69 years old, Female; RO FRACTURE. TECHNIQUE: Noncontrast CT of the side Extremity was performed. Sagittal and coronal reformatted imag es are provided. COMPARISON: Radiographs of the right femur performed on 04/02/2024 CT Dose: CTDI volume is 28.99 mGy. Dose-length product is 714.05 mGy*cm FINDINGS: No fracture or dislocation. Joint spaces are maintained. There is mineralization in the right gluteus minimus tendon at its insertion compatible with calcific tendinitis. There is right hip subcutaneous edema. IMPRESSION: 1. No fracture or dislocation. 2. Calcific tendinitis in the right gluteus minimus tendon. Mild soft tissue edema. All CT scans at this medical facility are performed using dose modulation techniques as appropriate t o a performed exam including the following: Automated exposure control was utilized; adjustment of th e MA and/or KV according to patient size; and use of iterative reconstruction technique.
--- NOTE | 2024-04-02 08:12 | DVH ---
CLINICAL INFORMATION: 69 years old, Female; rule out bleed. No other clinical information provided. TECHNIQUE: Axial imaging was obtained through the brain without contrast. Axial CT imaging of the ce rvical spine was also obtained without contrast. Coronal and sagittal reformatted images were obtaine d, reviewed, and stored. One or more of the following dose reduction techniques were used: Automated exposure control. Adjustment of mA and/or kV according to patient size. CTDIvol = 61.64 mGy DLP = 986.77 mGy-cm COMPARISON: CT HEAD WITHOUT CONTRAST on DOS: 11/11/23, MRI BRAIN HEAD WO CONTRAST on DOS: 11/05/23, CT CERVICAL WITHOUT CONTRAST on DOS: 11/04/23 FINDINGS: CT HEAD: Acute subdural hemorrhage along the falx cerebri bilaterally measuring up to 0.5 cm in great est thickness on the left, extending along the entire anterior to posterior extent of the falx at sup erior aspect, approximately 11 cm in proximal to distal dimension and up to 4.3 cm in greatest cranio caudal dimension. The right-sided subdural hemorrhage along the falx is smaller, measuring up to 0.25 cm in thickness, extending up to 6 cm in greatest anterior to posterior dimension and 1.6 cm in cran iocaudal dimension. There is no significant midline shift. Minimal mass effect due to the subdural hemorrhage. Ventricles and basal cisterns are within normal limits. There is a small to moderate rig ht posterior scalp hematoma. The calvarium is unremarkable. Paranasal sinuses and mastoid air cells are clear. CT CERVICAL SPINE: There is straightening of the normal cervical lordosis. No significant spondyloli sthesis. Vertebral body heights are maintained. Posterior elements are intact. No evidence of acute f racture. Multilevel moderate disc space narrowing with associated endplate sclerosis and endplate spu rring. Multilevel facet and uncinate hypertrophy with areas of moderate to severe neural foraminal st enosis, greatest at the C5-C6 level. There are areas of lucency in the posterior aspect of the C4 samm tebral body, which may be focal areas of osteopenia / demineralization rather than intraosseous lesio n. Prevertebral and paraspinal soft tissues are unremarkable. IMPRESSION: 1. Acute subdural hemorrhage along both sides of the falx cerebri as detailed above. Minimal mass eff ect. No midline shift. 2. Small to moderate right posterior scalp hematoma. 3. No evidence of acute fracture or spondylolisthesis in the cervical spine. 4. Focal areas of lucency in the posterior aspect of the C4 vertebral body may be due to focal areas of osteopenia rather than intraosseous lesion. Nonemergent MRI of the cervical spine could be conside red to further characterize. This could be done outpatient basis. Critical findings Critical Result: Acute intracranial hemorrhage. Findings discussed with FIONA CARO by Dr. Sales by phone at 04/02/2024 10:05 AM pam BLAND nd acknowledged receipt and understanding of the findings. ..
[2024-04-02] MEDS: ONDANSETRON HCL 4 MG/2 ML VIAL IV ONE ×2 (08:38→12:10)
[2024-04-02] MEDS: MORPHINE SULFATE 4 MG/ML SYR/VIAL IV ONE (08:38)
[2024-04-02 10:57] LABS: Alanine Aminotransferase 31 U/L (7-40); Albumin 4.1 g/dL (3.2-4.8); Alkaline Phosphatase 98 U/L (46-116); Anion Gap 7 (5-15); BUN/Creatinine Ratio 17.4 (10.0-20.0); Bilirubin, Total 0.3 mg/dL (0.2-1.0); Blood Urea Nitrogen 12 mg/dL (9-23); Calcium 10.2 mg/dL (8.7-10.4); Carbon Dioxide 26 mmol/L (20-31); Chloride 105 mmol/L (98-107); Potassium 4.3 mmol/L (3.5-5.1); Sodium 138 mmol/L (136-145); Total Protein 7.4 g/dL (5.7-8.2)
[2024-04-02 11:02] LABS: Aspartate Aminotransferase 45 U/L (13-40); Glucose 131 mg/dL (74-106)
[2024-04-02 11:03] LABS: Basophils # (auto) 0 10 ^3/uL (0-0.2); Basophils % (auto) 0.3 % (0.0-2.0); Eosinophils # (auto) 0.2 10 ^3/uL (0-0.8); Eosinophils % (auto) 2.1 % (0.0-7.0); Hematocrit 43.1 % (36.0-46.0); Hemoglobin 14.1 g/dL (12.2-16.2); Lymphocytes # (auto) 2.1 10 ^3/uL (0.4-5.4); Mean Corpuscular Hemoglobin 31.3 pg (28.0-32.0); Mean Corpuscular Hgb Conc. 32.8 g/dL (32.0-36.0); Mean Corpuscular Volume 95.3 fL (80.0-100.0); Monocytes # (auto) 0.9 10 ^3/uL (0-1.3); Monocytes % (auto) 8.8 % (0.0-12.0); Neutrophils # (auto) 6.9 10 ^3/uL (1.6-8.6); Neutrophils % (auto) 67.8 % (37.0-80.0); Nucleated Red Blood Cells % 0.2 %; Platelet Count (auto) 162 10^3/uL (140-450); Red Blood Cells 4.52 10^6/uL (4.0-5.20); Red Cell Distribution Width 15.9 % (11.8-14.3); White Blood Cell 10.1 10^3/uL (4.4-10.8)
[2024-04-02 12:00] VITALS: TEMP 98.3; O2SAT 97
[2024-04-02 12:11] VITALS: BP 111/72; PULSE 92; RESP 22
[2024-04-02] MEDS: MORPHINE SULFATE INJ 2 MG/ml SYRG IV ONE (12:11)
== END 2024-04-02 12:16 | disposition short-term general hospital (02) ==
LOC: EDBD 06:12 → ER 06:12
DX: I62.00 Nontraumatic subdural hemorrhage, unspecified (principal); J44.9 Chronic obstructive pulmonary disease, unspecified; E11.9 Type 2 diabetes mellitus without complications; E78.5 Hyperlipidemia, unspecified; F20.9 Schizophrenia, unspecified; I11.0 Hypertensive heart disease with heart failure; I50.89 Other heart failure; Z79.899 Other long term (current) drug therapy; Z90.49 Acquired absence of other specified parts of digestive tract; Z90.89 Acquired absence of other organs; Z90.710 Acquired absence of both cervix and uterus; Z98.890 Other specified postprocedural states
CPT/HCPCS: 36415; 70450; 72125; 73552; 73700; 80053; 85025; 86850; 86900; 86901; 96374; 96375; 96376; 99291; J2270; J2405

== ENCOUNTER 2024-04-23 08:07 | Inpatient (IN) | payer OTHER, MEDICAID ==
[~2024-04-23] VITALS: Ht 157.5 cm; Wt 85.8 kg
[~2024-04-23 08:07] MED LIST changes: +ALEN70TA74 PO; +ATOR40TA52 PO; +FERR325T20 PO; +METF-370 PO; +METO-159 PO; +PANT-62 PO; +SUCR1TAB31 PO
[2024-04-23 08:10] VITALS: PULSE 112; RESP 18; O2SAT 96
--- NOTE | 2024-04-23 08:47 | ED.PDOC ---
SOB-HPI HPI Comments 69 y.o female with PMH of COPD, CHF, CAD, DM, HDL, HTN, TIA, CVA, schizophrenia, presents to the ED via EMS for a chief complaint of SOB associated with a cough and congestion that started one week ago. Patient reports using her inhaler throughout the night but had no relief and is having progressively worsening SOB today. Patient denies any chest pain, fever, chills, nausea, vomiting, diarrhea. Patient mentions recent hospitalization one week ago at [facility] due to a brain bleed, states no intervention needed due to the brain bleed "being too small". Chief Complaint: Shortness of Breath Time Seen by MD: 08:35 Primary Care Provider: UNKNOWN Reviewed notes: Nurses Notes, Medications, Allergies Information Source: Patient Mode of Arrival: EMS Severity: Moderate Timing: Weeks (1) Duration: Since onset Context: At Rest PE Risk Factors: None History of: COPD, CHF Modifying Factors: Nothing Associated Signs and Symptoms: Cough, Nasal Congestion If cough with SOB: Productive Past Medical History PAST MEDICAL HISTORY: CAD, Cancer, CHF, COPD, CVA, Depression, DM, High Lipids, HTN, Schizophrenia, TIA Surgical History: CABG, Cholecystectomy, Hysterectomy, [employer] History: 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 History Family History Family History: Reviewed,noncontributory to illness Social History Smoker: Non-Smoker Alcohol: Denies ETOH Use Drugs: Denies Drug Use Lives In: Home Constitutional: denies: chills, diaphoresis, fatigue, fever, malaise, sweats, weakness, others EENTM: reports: nose congestion; denies: blurred vision, double vision, ear bleeding, ear discharge, ear drainage, ear pain, ear ringing, eye pain, eye redness, hearing loss, mouth pain, mouth swelling, nasal discharge, nose bleeding, nose pain, photophobia, tearing, throat pain, throat swelling, voice changes, others Respiratory: reports: cough, SOB at rest, shortness of breath; denies: hemoptysis, orthopnea, SOB with excertion, stridor, wheezing, others Cardiovascular: denies: chest pain, dizzy spells, diaphoresis, Dyspnea on exertion, edema, irregular heart beat, left arm pain, lightheadedness, pa lpitations, PND, syncope, others Gastrointestinal: denies: abdomen distended, abdominal pain, blood streaked bowels, constipated, diarrhea, dysphagia, difficulty swallowing, hematemesis, melena, nausea, poor appetite, poor fluid intake, rectal bleeding, rectal pain, vomiting, others Genitourinary: denies: abnormal vagina bleeding, burning, dyspareunia, dysuria, flank pain, frequency, hematuria, incontinence, pain, , vagina discharge, urgency, others Neurological: denies: dizziness, fainting, headache, left sided numbness, left sided weakness, numbness, paresthesia, pre-existing deficit, right sided numbness, right sided weakness, seizure, speech problems, tingling, tremors, weakness, others Musculoskeletal: denies: back pain, gout, joint pain, joint swelling, muscle pain, muscle stiffness, neck pain, others Integumetry: denies: bruises, change in color, change in hair/nails, dryness, laceration, lesions, lumps, rash, wounds, others Allergic/Immunocompromised: denies: Difficulty Healing, Frequent Infections, Hives, Itching, others Hematologic/Lymphatic: denies: anemia, blood clots, easy bleeding, easy bruising, swollen glands, others Endocrine: denies: excessive hunger, excessive sweating, excessive thirst, excessive urination, flushing, intolerance to cold, intolerance to heat, unexplained weight gain, unexplained weight loss, others Psychiatric: denies: anxiety, bipolar disorder, depression, hopeless, panic disorder, schizophrenia, sleepless, suicidal, others All Other Systems: Reviewed and Negative Physical Exam General Appearance: No Apparent Distress, Normal HEENT: Normal ENT Inspection, Pharynx Normal, TMs Normal Neck: Full Range of Motion, Non-Tender, Normal, Normal Inspection Respiratory: Lungs Clear, Other (right side coarse ) Cardiovascular: No Edema, No JVD, No Murmur, No Gallop, Normal Peripheral Pulses, Regular Rate/Rhythm Breast Exam: Deferred Gastrointestinal: No Organomegaly, Non Tender, No Pulsatile Mass, Normal Bowel Sounds, Soft Genitalia: Deferred Pelvic: Deferred Rectal: Deferred Extremities: No calf tenderness, Normal capillary refill, Normal inspection, Normal range of motion, Non-tender, No pedal edema Musculoskeletal : Apperance: Normal 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 Was a procedure done?: No Differential Dx Differential Diagnosis: Bronchitis, Pneumonia, Respiratory Distress, URI X-Ray, Labs, Meds, VS Vital Signs Date Time Temp Pulse Resp B/P (MAP) Pulse Ox O2 Delivery O2 Flow Rate FiO2 04/23/24 10:00 110 114/66 (82) 97 04/23/24 08:28 121 04/23/24 08:10 Room Air* 0 21 04/23/24 08:10 112 18 96 Room Air* 0 21 04/23/24 08:10 98.9 112 18 113/56 (75) 96 98.9 04/23/24 08:07 98.9 142 24 128/74 (92) 96 Lab Test 04/23/24 10:20 04/23/24 10:12 04/23/24 09:10 Range/Units Urine Color Light-yellow Yellow Urine Clarity Clear Clear Urine pH 5.5 5.0-9.0 Urine Specific Abbot 1.008 1.001-1.035 Urine Protein Trace H Negative Urine Ketones Negative Negative Urine Blood Negative Negative /uL Urine Nitrite Negative Negative Urine Bilirubin Negative Negative Urine Urobilinogen Normal Negative mg/dL Urine Leukocyte Esterase 2+ Negative /uL Urine RBC 3 0 - 4 /hpf Urine WBC 47 0 - 5 /hpf Urine Squamous Epithelial Cells Few <5 /hpf Urine Bacteria Few H None Seen /hpf Urine Yeast (Budding) Moderate None Seen /hpf Urine Glucose 4+ H Normal mg/dL Troponin I High Sensitivity 56 *H 29 </=34 ng/L White Blood Count 10.7 4.4-10.8 10^3/uL Red Blood Count 4.63 4.0-5.20 10^6/uL Hemoglobin 14.1 12.2-16.2 g/dL Hematocrit 43.6 36.0-46.0 % Mean Corpuscular Volume 94.1 80.0-100.0 fL Mean Corpuscular Hemoglobin 30.4 28.0-32.0 pg Mean Corpuscular Hemoglobin Concent 32.3 32.0-36.0 g/dL Red Cell Distribution Width 15.3 H 11.8-14.3 % Platelet Count 182 140-450 10^3/uL Mean Platelet Volume 7.8 6.9-10.8 fL Neutrophils (%) (Auto) 75.0 37.0-80.0 % Lymphocytes (%) (Auto) 17.8 10.0-50.0 % Monocytes (%) (Auto) 5.0 0.0-12.0 % Eosinophils (%) (Auto) 1.7 0.0-7.0 % Basophils (%) (Auto) 0.5 0.0-2.0 % Neutrophils # (Auto) 8.0 1.6-8.6 10 ^3/uL Lymphocytes # (Auto) 1.9 0.4-5.4 10 ^3/uL Monocytes # (Auto) 0.5 0-1.3 10 ^3/uL Eosinophils # (Auto) 0.2 0-0.8 10 ^3/uL Basophils # (Auto) 0.1 0-0.2 10 ^3/uL Nucleated Red Blood Cells 0.4 % Prothrombin Time 11.2 9.3-11.8 sec Prothrombin Time INR 1.06 0.9-1.15 Activated Partial Thromboplast Time 26.7 24.5-34.5 SEC D-Dimer, Quantitative 4.39 H 0.0-0.49 mg/L FEU Sodium Level 140 136-145 mmol/L Potassium Level 4.1 3.5-5.1 mmol/L Chloride Level 107 98-107 mmol/L Carbon Dioxide Level 24 20-31 mmol/L Anion Gap 9 5-15 Blood Urea Nitrogen 9 9-23 mg/dL Creatinine 0.67 0.550-1.02 mg/dL Glomerular Filtration Rate Calc 96 >90 mL/min BUN/Creatinine Ratio 13.4 10.0-20.0 Serum Glucose 151 H 74-106 mg/dL Calcium Level 9.6 8.7-10.4 mg/dL Magnesium Level 1.5 L 1.6-2.6 mg/dL Total Bilirubin 0.2 0.2-1.0 mg/dL Aspartate Amino Transferase (AST) 37 13-40 U/L Alanine Aminotransferase (ALT) 22 7-40 U/L Alkaline Phosphatase 122 H 46-116 U/L B-Type Natriuretic Peptide 30.36 0-100 pg/mL Total Protein 7.3 5.7-8.2 g/dL Albumin 3.9 3.2-4.8 g/dL X-Ray, Labs, Meds, VS Comment 69 y.o female with PMH of COPD, CHF, CAD, DM, HDL, HTN, TIA, CVA, schizophrenia, presents to the ED via EMS for a chief complaint of SOB associated with a cough and congestion. Here, her workup was significant for an elevated troponin that was up trending. I have concerned the patient may be having acute cardiac event and her shortness breath or cough may be secondary to a cardiac disease. Secondary to her multiple risk factors, in worrisome troponin, the patient will be admitted for further workup and management. Time of 1ST Reevaluation: 08:41 Reevaluation 1ST: Unchanged Patient Education/Counseling: Diagnosis, Treatment, Prognosis Family Education/Counseling: No Family Present Additional Information The following tests were ordered, and results were reviewed by me: EKG, CXR, LAB, CT head Additional Information was gathered from interviewing the following independent historians:EMS I reviewed and agreed with the following test results read by other providers: CXR and CT head I discussed treatment and results with medical personnel and patient [place] [address] Ph: [phone] DIAGNOSTIC IMAGING Diagnostic Imaging Report : [id number] Signed PATIENT: ELENO SOLIS ACCT: [id number] UNIT: [id number] : 1955 LOC: ER ROOM / BED: / AGE / SEX: 69 / F ADM STATUS: REG ER SERVICE 0842 ORDERING PHYSICIAN: ALEJANDRA COOK MD PROCEDURE(s): CTH - STROKE CTH REASON: hx of brain bleed 1 week ago ORDER NUMBER(s): [id number], ACCESSION NUMBER(s): [id number] EXAM: CT STROKE CTH INDICATION: hx of brain bleed 1 week ago TECHNIQUE: CT of the head without intravenous contrast. Radiation Dose : 1. Head: CT Dose: CTDI volume is 56 mGy. Dose-length product is 994 mGy*cm The dose indicators for CT are the volume Computed Tomography (CT) Dose Index (CTDIvol) and the Dose Length Product (DLP), and are measured in units of mGy and mGy-cm, respectively. These indicators are not patient dose, but values generated from the CT scanner acquisition factors. The report includes radiation exposure data for exposures received during this examination. COMPARISON: CT HEAD WITHOUT CONTRAST on DOS: 04/02/24, CT HEAD WITHOUT CONTRAST on DOS: 11/11/23, CT HEAD WITHOUT CONTRAST on DOS: 11/04/23, HEAD WITHOUT CONTRAST on DOS: 11/12/21 FINDINGS: There is no evidence of acute intracranial hemorrhage, extra-axial collection, mass effect, midline shift, herniation or hydrocephalus. The ventricles, sulci and cisterns are age appropriate. The agustin-white differentiation is intact. Patchy periventricular and subcortical white matter hypoattenuation is nonspecific but may be related to small vessel ischemic disease. The visualized paranasal sinuses and mastoid air cells are clear. The surrounding soft tissues and osseous structures are unremarkable. IMPRESSION: No acute intracranial abnormality. Subdural hemorrhage along the falx, previously seen on CT dated 04/02/2024 has significantly decreased or resolved. Radiation optimization: All CT scans at this facility use at least one of these dose optimization techniques: automated exposure control mA and/or kV adjustment per patient size (includes targeted exams where dose is matched to clinical indication) or iterative reconstruction. ATED BY: TEE ZHENG MD DICTATED DATE/TIME: 04/23/24 09 SIGNED BY: TEE ZHENG MD SIGNED DATE/TIME: 04/23/24907 CC: [place] [address] Ph: [phone] DIAGNOSTIC IMAGING Diagnostic Imaging Report : [id number] Signed PATIENT: ELENO SOLIS ACCT: [id number] UNIT: [id number] : 1955 LOC: ER ROOM / BED: / AGE / SEX: 69 / F ADM STATUS: REG ER SERVICE 7 ORDERING PHYSICIAN: ALEJANDRA COOK MD PROCEDURE(s): CXRP - CHEST PORTABLE REASON: cough ORDER NUMBER(s): [id number], ACCESSION NUMBER(s): [id number] CHEST RADIOGRAPH Indication: cough Technique: Single frontal view of the chest was obtained COMPARISON: XY CHEST PORTABLE on DOS: 11/08/23, XY CHEST XRAY 1 VIEW on DOS: 11/04/23, XY CHEST XRAY 1 VIEW on DOS: 05/15/23, XY CHEST PORTABLE on DOS: 05/08/23 FINDINGS: Lines and Tubes: Right chest port in satisfactory position. Lungs: Clear Pleura: No effusion. No pneumothorax. Cardiomediastinal contours: Unremarkable Bones: Unremarkable IMPRESSION: No acute disease. ATED BY: TEE ZHENG MD DICTATED DATE/TIME: 04/23/24904 SIGNED BY: TEE ZHENG MD SIGNED DATE/TIME: 04/23/24904 CC: Departure 1 Departure Time of Disposition: 12:17 Impression: Primary Impression: NSTEMI (non-ST elevated myocardial infarction) Additional Impression: Cough Disposition: ADMITTED INPATIENT Admit to: Tele Condition: Fair Critical Care Note Critical Care Time?: No Stability Stability form required: No I personally scribed for ALEJANDRA COOK MD ([email or web address]) on 04/23/24 at 08:47. Electronically submitted by Margarette Cardona ([facility]). I personally scribed for ALEJANDRA COOK MD ([email or web address]) on 04/23/24 at 08:49. Electronically submitted by Margarette Cardona ([facility]). I personally scribed for ALEJANDRA COOK MD ([email or web address]) on 04/23/24 at 10:47. Electronically submitted by Margarette Cardona ([facility]). ALEJANDRA COOK MD Apr 23, 2024 08:47
--- NOTE | 2024-04-23 09:07 | DVH ---
CHEST RADIOGRAPH Indication: cough Technique: Single frontal view of the chest was obtained COMPARISON: XY CHEST PORTABLE on DOS: 11/08/23, XY CHEST XRAY 1 VIEW on DOS: 11/04/23, XY CHEST XRAY 1 V IEW on DOS: 05/15/23, XY CHEST PORTABLE on DOS: 05/08/23 FINDINGS: Lines and Tubes: Right chest port in satisfactory position. Lungs: Clear Pleura: No effusion. No pneumothorax. Cardiomediastinal contours: Unremarkable Bones: Unremarkable IMPRESSION: No acute disease.
--- NOTE | 2024-04-23 09:11 | DVH ---
EXAM: CT STROKE CTH INDICATION: hx of brain bleed 1 week ago TECHNIQUE: CT of the head without intravenous contrast. Radiation Dose : 1. Head: CT Dose: CTDI volume is 56 mGy. Dose-length product is 994 mGy*cm The dose indicators for CT are the volume Computed Tomography (CT) Dose Index (CTDIvol) and the Dose Length Product (DLP), and are measured in units of mGy and mGy-cm, respectively. These indicators are not patient dose, but values generated from the CT scanner acquisition factors. The report includes radiation exposure data for exposures received during this examination. COMPARISON: CT HEAD WITHOUT CONTRAST on DOS: 04/02/24, CT HEAD WITHOUT CONTRAST on DOS: 11/11/23, CT HE AD WITHOUT CONTRAST on DOS: 11/04/23, HEAD WITHOUT CONTRAST on DOS: 11/12/21 FINDINGS: There is no evidence of acute intracranial hemorrhage, extra-axial collection, mass effect, midline s hift, herniation or hydrocephalus. The ventricles, sulci and cisterns are age appropriate. The agustin-white differentiation is intact. Patchy periventricular and subcortical white matter hypoattenuation is nonspecific but may be related to small vessel ischemic disease. The visualized paranasal sinuses and mastoid air cells are clear. The surrounding soft tissues and osseous structures are unremarkable. IMPRESSION: No acute intracranial abnormality. Subdural hemorrhage along the falx, previously seen on CT dated 04/02/2024 has significantly decrease d or resolved. Radiation optimization: All CT scans at this facility use at least one of these dose optimization laly hniques: automated exposure control mA and/or kV adjustment per patient size (includes targeted exam s where dose is matched to clinical indication) or iterative reconstruction.
[2024-04-23 09:39] LABS: Basophils # (auto) 0.1 10 ^3/uL (0-0.2); Basophils % (auto) 0.5 % (0.0-2.0); Eosinophils # (auto) 0.2 10 ^3/uL (0-0.8); Eosinophils % (auto) 1.7 % (0.0-7.0); Hematocrit 43.6 % (36.0-46.0); Hemoglobin 14.1 g/dL (12.2-16.2); Lymphocytes # (auto) 1.9 10 ^3/uL (0.4-5.4); Lymphocytes % (auto) 17.8 % (10.0-50.0); Mean Corpuscular Hemoglobin 30.4 pg (28.0-32.0); Mean Corpuscular Hgb Conc. 32.3 g/dL (32.0-36.0); Mean Corpuscular Volume 94.1 fL (80.0-100.0); Monocytes # (auto) 0.5 10 ^3/uL (0-1.3); Nucleated Red Blood Cells % 0.4 %; Platelet Count (auto) 182 10^3/uL (140-450); Red Blood Cells 4.63 10^6/uL (4.0-5.20); Red Cell Distribution Width 15.3 % (11.8-14.3); White Blood Cell 10.7 10^3/uL (4.4-10.8)
[2024-04-23 09:53] LABS: Alanine Aminotransferase 22 U/L (7-40); Albumin 3.9 g/dL (3.2-4.8); Anion Gap 9 (5-15); Aspartate Aminotransferase 37 U/L (13-40); BUN/Creatinine Ratio 13.4 (10.0-20.0); Blood Urea Nitrogen 9 mg/dL (9-23); Calcium 9.6 mg/dL (8.7-10.4); Carbon Dioxide 24 mmol/L (20-31); Chloride 107 mmol/L (98-107); Potassium 4.1 mmol/L (3.5-5.1); Sodium 140 mmol/L (136-145)
[2024-04-23 09:54] LABS: Total Protein 7.3 g/dL (5.7-8.2)
[2024-04-23 09:56] LABS: Alkaline Phosphatase 122 U/L (46-116); Bilirubin, Total 0.2 mg/dL (0.2-1.0); Glucose 151 mg/dL (74-106); Magnesium 1.5 mg/dL (1.6-2.6)
[2024-04-23 10:13] LABS: INR 1.06 (0.9-1.15); Partial Thromboplastin Time 26.7 SEC (24.5-34.5); Prothrombin Time 11.2 sec (9.3-11.8)
[2024-04-23 10:43] LABS: Urine Bacteria FEW /hpf (None Seen); Urine Blood Negative /uL (Negative); Urine Budding Yeast MODERATE /hpf (None Seen); Urine Clarity Clear (Clear); Urine Color Light-Yellow (Yellow); Urine Protein, UAD TRACE (Negative); Urine Specific Gravity 1.008 (1.001-1.035); Urine Squamous Epithelial Cell FEW /hpf (<5); Urine Urobilinogen Normal (Negative); Urine WBC 47 /hpf (0 - 5); Urine pH 5.5 (5.0-9.0)
--- NOTE | 2024-04-23 18:06 | DVHHPRES ---
History of Present Illness Resident Creating Document: JOSE CRUZ MOORE RESIDENT History of Present Illness Patient is a 69-year-old female with past medical history of COPD, heart failure with preserved ejection fraction, left breast cancer status post lymph node dissection and chemotherapy, CAD, dm, HLD, HTN, CVA, peripheral neuropathy, obstructive sleep apnea on CPAP, schizophrenia, who came in due to dyspnea. According to the patient, she woke up this morning and she felt like she could not breathe, she subsequently tried to use her albuterol inhaler 3 times which helped a little bit however she continued experiencing dyspnea and shortness of breadth. Her caregiver subsequently called the ambulance that brought her to the hospital. She denies having similar symptoms in the past. Patient notes that fiber for roommates have tested positive for COVID. Patient has a history of left breast cancer, status post lymph node dissection and has completed chemotherapy, scheduled to begin radiotherapy soon. Note, patient was recently treated for a UTI at [facility], she also was noted to have a subdural hematoma on 04/02/2024, which is significantly reduced/resolved in the most recent head CT. Cardiovascular: CAD, CHF Past Medical History Heart failure with preserved ejection fraction 60%, COPD, CAD, DM, HLD, HTN, CVA, asthma, left breast cancer, degenerative disc disease, peripheral neuropathy, schizophrenia, obstructive sleep apnea on cpap Past Surgical History Cholecystectomy, bilateral salpingo-oophorectomy, left lymph node dissection axillary. Smoke: No ALCOHOL: none Drugs: None Lives: Roommate Review of Systems Constitutional: Yes: Other (Fatigue); No: Fever, Chills, Sweats, Weakness, Malaise Eyes: No: Pain, Vision change, Conjunctivae inflammation, Eyelid inflammation, Other, Redness ENT: Nose discharge, Nose congestion, Throat pain; No: Ear pain, Ear discharge, Nose pain, Mouth pain, Mouth swelling, Throat swelling, Other Respiratory: Cough, Dry, Shortness of breath, SOB with excertion; No: Wheezing, Hemoptysis, Pleuritic Pain, Sputum, Wheezing, Other Cardiovascular: No: Chest Pain, Palpitations, Orthopnea, Paroxysmal Noc. Dyspnea, Edema, Lt Headedness, Other Gastrointestinal: Nausea; No: Vomiting, Abdominal Pain, Diarrhea, Constipation, Melena, Hematochezia, Other Genitourinary: No Dysuria, No Frequency, No Incontinence, No Hematuria, No Retention, No Other Musculoskeletal: No: other, neck pain, shoulder pain, arm pain, back pain, hand pain, leg pain, foot pain Skin: No: Rash, Lesions, Jaundice, Bruising, Other Neurological: No: Weakness, Numbness, Incoordination, Change in speech, Confusi on, Seizures, Other Allergies: Coded Allergies: NO KNOWN ALLERGIES (Unverified , 06/25/14) Exam Vital Signs Vital Signs Date Time Temp Pulse Resp B/P (MAP) Pulse Ox O2 Delivery O2 Flow Rate FiO2 04/23/24 14:00 108 18 112/56 (74) 94 04/23/24 08:10 Room Air* 0 21 04/23/24 08:10 98.9 98.9 Exam General Appearance: Cooperative. Well developed. Well nourished. NAD Head Exam: Normal inspection Neck Exam: Normal inspection. Non-tender. Normal alignment Pulmonary/Respiratory: Chest non-tender. Clear bilateral breath sounds, no crackles, no wheezing. Cardiovascular/Chest: Regular rate and rhythm. No murmurs. No JVD. Peripheral Pulses: 2+ Radial (R). 2+ Radial (L). 2+ Pedal (R). 2+ Pedal (L) Abdominal Exam: Normal bowel sounds. Soft. normal abdomen, no visible veins, Nontender. No hepatospenomegaly. No masses Ankle Exam: Negative ankle edema Lower extremities: trace lower extremity edema Neuro/Mental Status: A&O x4. Coherent. Thoughts/Psych: Normal thought pattern. Appropriate mood and affect. Good judgement and insight Skin Exam: Normal inspection. Normal color. Warm. Dry Labs/Xrays Labs Test 04/23/24 12:06 04/23/24 10:20 04/23/24 09:10 Range/Units Troponin I High Sensitivity 87 *H </=34 ng/L Urine Color Light-yellow Yellow Urine Clarity Clear Clear Urine pH 5.5 5.0-9.0 Urine Specific Dell 1.008 1.001-1.035 Urine Protein Trace H Negative Urine Ketones Negative Negative Urine Blood Negative Negative /uL Urine Nitrite Negative Negative Urine Bilirubin Negative Negative Urine Urobilinogen Normal Negative mg/dL Urine Leukocyte Esterase 2+ Negative /uL Urine RBC 3 0 - 4 /hpf Urine WBC 47 0 - 5 /hpf Urine Squamous Epithelial Cells Few <5 /hpf Urine Bacteria Few H None Seen /hpf Urine Yeast (Budding) Moderate None Seen /hpf Urine Glucose 4+ H Normal mg/dL White Blood Count 10.7 4.4-10.8 10^3/uL Red Blood Count 4.63 4.0-5.20 10^6/uL Hemoglobin 14.1 12.2-16.2 g/dL Hematocrit 43.6 36.0-46.0 % Mean Corpuscular Volume 94.1 80.0-100.0 fL Mean Corpuscular Hemoglobin 30.4 28.0-32.0 pg Mean Corpuscular Hemoglobin Concent 32.3 32.0-36.0 g/dL Red Cell Distribution Width 15.3 H 11.8-14.3 % Platelet Count 182 140-450 10^3/uL Mean Platelet Volume 7.8 6.9-10.8 fL Neutrophils (%) (Auto) 75.0 37.0-80.0 % Lymphocytes (%) (Auto) 17.8 10.0-50.0 % Monocytes (%) (Auto) 5.0 0.0-12.0 % Eosinophils (%) (Auto) 1.7 0.0-7.0 % Basophils (%) (Auto) 0.5 0.0-2.0 % Neutrophils # (Auto) 8.0 1.6-8.6 10 ^3/uL Lymphocytes # (Auto) 1.9 0.4-5.4 10 ^3/uL Monocytes # (Auto) 0.5 0-1.3 10 ^3/uL Eosinophils # (Auto) 0.2 0-0.8 10 ^3/uL Basophils # (Auto) 0.1 0-0.2 10 ^3/uL Nucleated Red Blood Cells 0.4 % Prothrombin Time 11.2 9.3-11.8 sec Prothrombin Time INR 1.06 0.9-1.15 Activated Partial Thromboplast Time 26.7 24.5-34.5 SEC D-Dimer, Quantitative 4.39 H 0.0-0.49 mg/L FEU Sodium Level 140 136-145 mmol/L Potassium Level 4.1 3.5-5.1 mmol/L Chloride Level 107 98-107 mmol/L Carbon Dioxide Level 24 20-31 mmol/L Anion Gap 9 5-15 Blood Urea Nitrogen 9 9-23 mg/dL Creatinine 0.67 0.550-1.02 mg/dL Glomerular Filtration Rate Calc 96 >90 mL/min BUN/Creatinine Ratio 13.4 10.0-20.0 Serum Glucose 151 H 74-106 mg/dL Calcium Level 9.6 8.7-10.4 mg/dL Magnesium Level 1.5 L 1.6-2.6 mg/dL Total Bilirubin 0.2 0.2-1.0 mg/dL Aspartate Amino Transferase (AST) 37 13-40 U/L Alanine Aminotransferase (ALT) 22 7-40 U/L Alkaline Phosphatase 122 H 46-116 U/L B-Type Natriuretic Peptide 30.36 0-100 pg/mL Total Protein 7.3 5.7-8.2 g/dL Albumin 3.9 3.2-4.8 g/dL Assessment/Plan Assessment/Plan Acute hypoxic respiratory failure on 2 L via NC NSTEMI type 2 likely due to above Ruling out pulmonary embolism vs pneumona, gram + vs -ve Possible COPD exacerbation Bronchiectasis - CTA chest - covid, influenze test - trospium and albuterol med nebs - IV methylprednisolone 62.5 mg chronic diastolic heart failure with preserved ejection fraction 70%, currently stable - monitor History of schizophrenia - we will resume home medication Type 2 diabetes Hypertension - mild sliding scale insulin Left breast cancer, s/p left lymph node dissection and chemotherapy - monitor History of subdural hematoma, now improving - Head CT: Subdural hematoma from previous 04/02/2024 is significantly reduced her resolving Morbid obesity BMI 45 -counseled Goals of care: Full code, discussed for >16 minutes on 04/23/24 Plan discussed with patient Plan discussed with Dr. Osorio Plan discussed with: Patient, Other Date of Service: Apr 23, 2024 Billing Provider: OUMOU OSORIO MD Common Visit Codes: 68849-[id number] INP/OBS CARE (HIGH) JOSE CRUZ MOORE Apr 23, 2024 18:06 OUMOU OSORIO MD Apr 26, 2024 08:35
[2024-04-23] MEDS ORDERED: ALBUTEROL SULF 2.5 MG/0.5ML(0.5%) NEB SOLN NEB PRN (18:45)
[2024-04-23] MEDS ORDERED: IPRATROPIUM BROM 0.5 MG/2.5ML INH SOL NEB PRN (18:45)
[2024-04-23 19:21] VITALS: O2SAT 95
--- NOTE | 2024-04-23 19:46 | DVH ---
Bilateral lower extremity venous duplex Clinical History: rule out DVT Comparison: US RT LOWER DVT on DOS: 05/16/23 Technique: Duplex Doppler evaluation of the deep venous systems of both lower extremities from the common femora l veins to the popliteal veins including color Doppler and spectral/pulsed waveform analysis was perf ormed. Findings: RIGHT SIDE: The common femoral vein demonstrates appropriate compressibility and waveform variability. There is compressibility/patency of the great saphenous vein at the proximal thigh. The femoral vein demonstrates appropriate compressibility and waveform variability. The deep femoral vein demonstrates appropriate compressibility and waveform variability. The popliteal vein demonstrates appropriate compressibility and waveform variability. There is normal compressibility at the tibioperoneal trunk. LEFT SIDE: The common femoral vein demonstrates appropriate compressibility and waveform variability. There is compressibility/patency of the great saphenous vein at the proximal thigh. The femoral vein demonstrates appropriate compressibility and waveform variability. The deep femoral vein demonstrates appropriate compressibility and waveform variability. The popliteal vein demonstrates appropriate compressibility and waveform variability. There is normal compressibility at the tibioperoneal trunk. Impression: 1. No right or left femoropopliteal venous thrombosis.
--- NOTE | 2024-04-23 20:21 | DVH ---
Procedure: CT CT ANGIO CHEST CONTRAST Reason for study/Clinical History: acute hypoxic resp failure Comparison Study: None available at time of dictation. Exam Date: 04/23/2024 07:50 PM Radiation Dose Information: CT Dose: CTDI volume is 25.04 mGy. Dose-length product is 937.29 mGy*cm Contrast: Type of contrast: Omnipaque 350 Contrast inject: 100 mL Contrast wasted:0 TECHNIQUE: After the uneventful administration of intravenous contrast intravenously, CT imaging was performed through the chest. Coronal and sagittal reformations were performed by the technologist. Sagittal and coronal MIP reformations were submitted for evaluation. FINDINGS: Lower Neck: Visualized portions of the thyroid gland are unremarkable. Aorta and Vasculature: Normal caliber of thoracic aorta. Lymph Nodes: No enlarged intrathoracic lymph nodes. Mediastinum: Heart size is normal. There is no pericardial effusion. The esophagus is unremarkable. Lungs: No focal consolidation, pleural effusion or significant pneumothorax. No suspicious pulmonary nodule or mass. Musculoskeletal: No acute osseous abnormality. Upper abdomen: Limited portions of the upper abdomen are unremarkable. IMPRESSION: 1. No findings of pulmonary artery hypertension. 2. No abnormal filling defects to suggest pulmonary emboli. 3. All CT scans at this medical facility are performed using dose modulation techniques as appropriate to a performed exam including the following: Automated exposure control was utilized; adjustment of t he MA and/or KV according to patient size; and use of iterative reconstruction technique.
[2024-04-23] MEDS: IOHEXOL 350 MG/ML 100ML IJ ONE (20:25)
[2024-04-23] MEDS: methylPREDNISolone SOD SUCC 125 MG/2 ML VL IV ONE (20:32)
[2024-04-23] MEDS: AZITHROMYCIN 500MG/ 250ML 250 ML IV ONE (20:32)
[2024-04-23] MEDS ORDERED: DEXTROSE (50%) 50ML SYRG IV PRN (20:45)
[2024-04-23] MEDS: SODIUM CHLORIDE 0.9% 250 ML IV ONE (22:08)
[2024-04-23 22:11] LABS: Rapid Influenza A Negative (Negative); Rapid Influenza B Negative (Negative)
[2024-04-23 22:20] LABS: COVID19 ANTIGEN SOFIA FIA POSITIVE (NEGATIVE)
[2024-04-23] MEDS: ACCU-CHEK COMFORT CURVE STRIP VI SCH (22:35)
[2024-04-23] MEDS: InsuLIN REG 1unit/0.01ml Soln (100units/ml) SC SCH (22:36)
[2024-04-24 03:11] VITALS: BP 128/86; PULSE 104; RESP 20; O2SAT 98
[2024-04-24 07:40] VITALS: O2SAT 97
[2024-04-24 08:00] VITALS: PULSE 138; RESP 18; O2SAT 97
[2024-04-24] MEDS ORDERED: REMDESIVIR PER PHARMACY 0 ML IV SCH (08:30)
[2024-04-24] MEDS: cefTRIAXone 1GM/50ML D5W 50 ML IV SCH (08:50)
[2024-04-24 09:03] LABS: Chloride 106 mmol/L (98-107); Sodium 142 mmol/L (136-145)
[2024-04-24 09:04] LABS: Anion Gap 20 (5-15)
[2024-04-24 09:05] LABS: Calcium 9.9 mg/dL (8.7-10.4)
[2024-04-24 09:10] LABS: BUN/Creatinine Ratio 15.1 (10.0-20.0); Blood Urea Nitrogen 11 mg/dL (9-23)
[2024-04-24 09:11] LABS: Basophils # (auto) 0 10 ^3/uL (0-0.2); Basophils % (auto) 0.1 % (0.0-2.0); Eosinophils # (auto) 0 10 ^3/uL (0-0.8); Eosinophils % (auto) 0.1 % (0.0-7.0); Hematocrit 44.6 % (36.0-46.0); Hemoglobin 14.6 g/dL (12.2-16.2); Lymphocytes # (auto) 2.2 10 ^3/uL (0.4-5.4); Mean Corpuscular Hgb Conc. 32.8 g/dL (32.0-36.0); Mean Corpuscular Volume 94.3 fL (80.0-100.0); Monocytes # (auto) 0.5 10 ^3/uL (0-1.3); Monocytes % (auto) 4.4 % (0.0-12.0); Neutrophils # (auto) 9.3 10 ^3/uL (1.6-8.6); Neutrophils % (auto) 77.4 % (37.0-80.0); Platelet Count (auto) 257 10^3/uL (140-450); Red Blood Cells 4.73 10^6/uL (4.0-5.20); Red Cell Distribution Width 15.6 % (11.8-14.3)
[2024-04-24 09:16] LABS: Carbon Dioxide 16 mmol/L (20-31); Glucose 182 mg/dL (74-106); Potassium 3.5 mmol/L (3.5-5.1)
[2024-04-24] MEDS: MAGNESIUM SULFATE 1GM/100ML 100 ML IV SCH (09:54)
--- NOTE | 2024-04-24 12:38 | DVHPNRES ---
Progress Note Date Seen: Apr 24, 2024 Resident Creating Document: JOSE CRUZ MOORE RESIDENT Medical Necessity Reason Pt with a Central, PICC or Fol: No Subjective Review of Systems Patient is a 69-year-old female with past medical history of COPD, heart failure with preserved ejection fraction, left breast cancer status post lymph node dissection and chemotherapy, CAD, dm, HLD, HTN, CVA, peripheral neuropathy, obstructive sleep apnea on CPAP, schizophrenia, multiple falls, who came in due to dyspnea. According to the patient, she woke up this morning and she felt like she could not breathe, she subsequently tried to use her albuterol inhaler 3 times which helped a little bit however she continued experiencing dyspnea and shortness of breadth. Her caregiver subsequently called the ambulance that brought her to the hospital. She denies having similar symptoms in the past. Patient notes that fiber for roommates have tested positive for COVID. Patient has a history of left breast cancer, status post lymph node dissection and has completed chemotherapy, scheduled to begin radiotherapy soon. Note, patient was recently treated for a UTI at [facility], she also was noted to have a subdural hematoma on 04/02/2024, which is significantly reduced/resolved in the most recent head CT. Past surgical history: Cholecystectomy, bilateral salpingo-oophorectomy, left a xillary lymph node dissection Home medications: Albuterol, amitriptyline, enalapril, furosemide, gabapentin, insulin, lactulose, Protonix, sertraline, semaglutide, simvastatin Past Hospitalization: 04/02/2024 at [facility] status post fall and subdural hematoma Social & Personal history: Patient lives with her roommates and has a caregiver. Denies using tobacco, alcohol or drugs. Remote alcohol use history, however, [id number] use only Allergies: Denies Patient seen and examined at bedside. Patient is alert and oriented to time, place person and responding to all questions. General: Fatigue Eyes: No Pain, No Vision change, No Conjunctivae inflammation, No Eyelid inflammation, No Other, No Redness ENT: No Ear pain, No Ear discharge, No Nose pain, Nose discharge, Nose congestion, No Mouth pain, No Mouth swelling, Throat pain, No Throat swelling, No Other Cardiovascular: No Chest Pain, No Palpitations, No Orthopnea, No Paroxysmal No Dyspnea, No Edema, No Lt Headedness, No Other Respiratory: Dry cough, Shortness of breath, No Wheezing, No Hemoptysis, No Pleuritic Pain, No Sputum, No Other Gastrointestinal: No Nausea, No Vomiting, No Abdominal Pain, No Diarrhea, No Constipation, No Melena, No Hematochezia, No Other Genitourinary: No Dysuria, No Frequency, No Incontinence, No Hematuria, No Retention, No Other Musculoskeletal: No other, No neck pain, No shoulder pain, No arm pain, No back pain, No hand pain, No leg pain, No foot pain Skin: No Rash, No Lesions, No Jaundice, No Bruising, No Other Objective vital signs Vital Sign Date Time Temp Pulse Resp B/P (MAP) Pulse Ox O2 Delivery O2 Flow Rate FiO2 04/24/24 11:00 130 19 127/61 (83) 97 04/24/24 07:40 Nasal Cannula 2.0 04/24/24 07:40 28 04/23/24 08:10 98.9 98.9 medications Current Medications Medications Dose Ordered Sig/Kerry Route Start Time Stop Time Status Last Admin Dose Admin Albuterol 2.5 mg Q4HPRN PRN NEB 04/23/24 18:45 Ipratropium [place] 0.5 mg Q4HPRN PRN NEB 04/23/24 18:45 Diagnostic Test (Pha) 1 strip ACHS 04/23/24 22:00 04/24/24 06:57 1 STRIP Insulin Human Regular ACHS SC 04/23/24 22:00 04/24/24 06:58 2 UNITS Dextrose 50 ml UD PRN IV 04/23/24 20:45 Ceftriaxone Sodium 50 ml @ 100 mls/hr DAILY@09 IV 04/24/24 09:00 04/24/24 08:50 100 MLS/HR Remdesivir 0 ml @ 0 mls/hr PER PHARMACY IV 04/24/24 08:30 04/27/24 08:29 Remdesivir 100 mg/ Sodium Chloride 250 ml @ 250 mls/hr DAILY@1500 IV 04/25/24 15:00 04/26/24 15:59 Examination General Appearance: Cooperative. Well developed. Well nourished. NAD Head Exam: Normal inspection Neck Exam: Normal inspection. Non-tender. Normal alignment Pulmonary/Respiratory: Chest non-tender. Clear bilateral breath sounds, no crackles, no wheezing. Cardiovascular/Chest: Regular rate and rhythm. No murmurs. No JVD. Peripheral Pulses: 2+ Radial (R). 2+ Radial (L). 2+ Pedal (R). 2+ Pedal (L) Abdominal Exam: Normal bowel sounds. Soft. normal abdomen, no visible veins, Nontender. No hepatospenomegaly. No masses Ankle Exam: Negative ankle edema Lower extremities: Trace lower extremity edema Neuro/Mental Status: A&O x4. Coherent. Thoughts/Psych: Normal thought pattern. Appropriate mood and affect. Good judgement and insight Skin Exam: Normal inspection. Normal color. Warm. Dry laboratory and microbiology Laboratory Tests 04/24/24 08:38 Test 04/24/24 08:38 Range/Units Serum Glucose 182 H 74-106 mg/dL Labs and/or images reviewed: Labs reviewed by me, Image(s) reviewed by me Problem List/Assessment/Plan Problem List/Assessment/Plan Cytokine Storm Syndrome 3? Acute hypoxic respiratory failure COVID-19 infection Sepsis can not be ruled out NSTEMI type 2 likely due to above Ruled out pulmonary embolism COPD exacerbation, mild Bronchiectasis - CXR: No acute disease - Ordered blood cultures, urine culture - CT angiography: No findings of pulmonary artery hypertension. No abnormal filling defects to suggest pulmonary emboli. - IV ceftriaxone, IV azithromycin - IV NS 250 mL bolus x3 - IV methylprednisolone 62.5 mg once - IV remdesivir per pharmacy - ipratropium and albuterol med nebs Chronic diastolic heart failure with preserved ejection fraction 70%, currently stable - monitor History of schizophrenia, stable - monitor Type 2 diabetes Hypertension, blood pressure on the softer side at present - mild sliding scale insulin Left breast cancer, s/p left lymph node dissection and chemotherapy, scheduled to begin radiotherapy - monitor History of subdural hematoma, now improving - head CT: No acute intracranial abnormality. Subdural hemorrhage along the falx, previously seen on CT dated 04/02/2024 has significantly decreased or resolved. Morbid obesity - counseled Goals of care: Full code, discussed for >16 minutes on 04/23/24 Plan discussed with patient Plan discussed with Dr. Hernandez critical care time 39 mins Plan discussed with: Patient, Other (RN) My Orders My Orders Orders - JOSE CRUZ MOORE RESIDENT Procedure Category Date Status Time Glucose Blood PHA 04/23/24 In Process (Accu-Chek Comfort 22:00 Insulin R (Human) PHA 04/23/24 In Process (Insulin R) 22:00 Dextrose 50% Syringe PHA 04/23/24 In Process 20:45 Bipap/Cpap For Sleep RT 04/23/24 Logged Apnea 20:32 Urine Bacterial RHIANNA 04/23/24 In Process Culture 20:36 Ceftriaxone 1gm/50ml PHA 04/24/24 In Process D5w (Rocephin) 09:00 Isolation Order ORDERS 04/24/24 Transmitted 08:24 Precautions ASHLEY 04/24/24 In Process (Contact,Droplets, 08:24 Oob To Chair ASHLEY 04/24/24 In Process 08:24 Incentive Spirometry ORDERS 04/24/24 Transmitted Q 1hr 08:24 Remdesivir Per PHA 04/24/24 In Process Pharmacy 08:30 Vitamin D, 25-Hydroxy LAB 04/24/24 In Process 08:24 Remdesivir 100mg PHA 04/25/24 In Process (Veklury) 15:00 Date of Service: Apr 24, 2024 Billing Provider: MARIA A HERNANDEZ MD Common Visit Codes: [id number] CARE 30-74 MIN JOSE CRUZ MOORE RESIDENT Apr 24, 2024 12:38 MARIA A HERNANDEZ MD Apr 25, 2024 10:37
[2024-04-24] MEDS: REMDESIVIR 200mg in NS 210mL LOADING DOSE ADULT IV ONE (13:28)
[2024-04-24] MEDS: AZITHROMYCIN 500MG/ 250ML 250 ML IV SCH (17:55)
[2024-04-24] MEDS: SODIUM CHLORIDE 0.9% 250 ML IV ONE (17:59)
[2024-04-24 18:40] VITALS: PULSE 122; RESP 20; O2SAT 97
[2024-04-24 19:45] LABS: Magnesium 1.8 mg/dL (1.6-2.6)
[2024-04-24 19:46] LABS: Potassium 3.3 mmol/L (3.5-5.1)
[2024-04-24 20:00] VITALS: PULSE 114; RESP 27; O2SAT 97
[2024-04-24 22:00] VITALS: BP 136/64; PULSE 107; O2SAT 99
[2024-04-25] VITALS (11 sets, daily range): BP systolic 113–147; BP diastolic 63–81; PULSE 102–125; RESP 18–22; TEMP 98.8–99; O2SAT 98–100
--- NOTE | 2024-04-25 05:21 | ECG ---
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
[2024-04-25 06:43] LABS: Calcium 9.3 mg/dL (8.7-10.4); Chloride 107 mmol/L (98-107); Sodium 140 mmol/L (136-145)
[2024-04-25 06:44] LABS: Anion Gap 11 (5-15); Carbon Dioxide 22 mmol/L (20-31)
[2024-04-25 06:46] LABS: Basophils # (auto) 0 10 ^3/uL (0-0.2); Basophils % (auto) 0.4 % (0.0-2.0); Eosinophils # (auto) 0.1 10 ^3/uL (0-0.8); Eosinophils % (auto) 1.4 % (0.0-7.0); Hematocrit 39.8 % (36.0-46.0); Hemoglobin 13.3 g/dL (12.2-16.2); Lymphocytes # (auto) 2.6 10 ^3/uL (0.4-5.4); Lymphocytes % (auto) 26.7 % (10.0-50.0); Mean Corpuscular Hemoglobin 31.3 pg (28.0-32.0); Mean Corpuscular Hgb Conc. 33.4 g/dL (32.0-36.0); Mean Corpuscular Volume 93.5 fL (80.0-100.0); Monocytes # (auto) 0.6 10 ^3/uL (0-1.3); Monocytes % (auto) 5.8 % (0.0-12.0); Neutrophils # (auto) 6.4 10 ^3/uL (1.6-8.6); Neutrophils % (auto) 65.7 % (37.0-80.0); Platelet Count (auto) 206 10^3/uL (140-450); Red Blood Cells 4.26 10^6/uL (4.0-5.20); Red Cell Distribution Width 15.4 % (11.8-14.3); White Blood Cell 9.8 10^3/uL (4.4-10.8)
[2024-04-25 06:49] LABS: BUN/Creatinine Ratio 16.2 (10.0-20.0); Blood Urea Nitrogen 11 mg/dL (9-23)
[2024-04-25 06:55] LABS: Glucose 149 mg/dL (74-106); Potassium 3.1 mmol/L (3.5-5.1)
--- NOTE | 2024-04-25 11:26 | DVHPNRES ---
Progress Note Date Seen: Apr 25, 2024 Resident Creating Document: GETACHEW POWERS RESIDENT Medical Necessity Reason Pt with a Central, PICC or Fol: No Subjective Review of Systems pt seen and examined at bedside, is in isolation for Covid currently on 2L oxygen through nasal canula, mentions no new complaints Objective vital signs Vital Sign Date Time Temp Pulse Resp B/P (MAP) Pulse Ox O2 Delivery O2 Flow Rate FiO2 04/25/24 10:00 102 20 123/71 (88) 100 04/25/24 09:05 Nasal Cannula* 2 04/25/24 08:00 98.9 98.9 Total Intake and Output 04/24/24 04/24/24 04/25/24 15:00 23:00 07:00 Intake Total 500 ml 250 ml Balance 500 ml 250 ml medications Current Medications Medications Dose Ordered Sig/Kerry Route Start Time Stop Time Status Last Admin Dose Admin Albuterol 2.5 mg Q4HPRN PRN NEB 04/23/24 18:45 Ipratropium [place] 0.5 mg Q4HPRN PRN NEB 04/23/24 18:45 Diagnostic Test (Pha) 1 strip ACHS 04/23/24 22:00 04/25/24 07:08 1 STRIP Insulin Human Regular ACHS SC 04/23/24 22:00 04/25/24 07:12 2 UNITS Dextrose 50 ml UD PRN IV 04/23/24 20:45 Ceftriaxone Sodium 50 ml @ 100 mls/hr DAILY@09 IV 04/24/24 09:00 04/25/24 08:49 100 MLS/HR Remdesivir 0 ml @ 0 mls/hr PER PHARMACY IV 04/24/24 08:30 04/27/24 08:29 Remdesivir 100 mg/ Sodium Chloride 250 ml @ 250 mls/hr DAILY@1500 IV 04/25/24 15:00 04/26/24 15:59 Azithromycin 250 ml @ 125 mls/hr DAILY@1800 IV 04/24/24 18:00 04/24/24 17:55 125 MLS/HR Examination Examination General Appearance: Alert, Oriented X3, Cooperative, No acute distress HEENT: EOMI Respiratory: Clear to auscultation, Normal air movement Cardiovascular: Regular rate, Normal S1, Normal S2 Abdominal: Normal bowel sounds Extremities: No cyanosis, No edema, Normal pulses, No tenderness/swelling Skin: No rashes, No breakdown Neuro: Normal speech and tone laboratory and microbiology Laboratory Tests 04/25/24 06:10 Test 04/25/24 06:10 Range/Units Serum Glucose 149 H 74-106 mg/dL Labs and/or images reviewed: Labs reviewed by me, Image(s) reviewed by me Problem List/Assessment/Plan Problem List/Assessment/Plan Assessment/plan Acute hypoxic respiratory failure due to COVID-19 infection Sepsis can not be ruled out NSTEMI type 2 likely due to above Ruled out pulmonary embolism COPD exacerbation, mild Bronchiectasis - CXR: No acute disease - Ordered blood cultures, urine culture - CT angiography: No findings of pulmonary artery hypertension. No abnormal filling defects to suggest pulmonary emboli. - IV ceftriaxone, IV azithromycin - IV NS 250 mL bolus x3 - IV methylprednisolone 62.5 mg once - IV remdesivir per pharmacy - ipratropium and albuterol med nebs Chronic diastolic heart failure with preserved ejection fraction 70%, currently stable - monitor Obstructive Sleep Apnea -continue CPAP at night History of schizophrenia, stable - monitor Type 2 diabetes Hypertension, blood pressure on the softer side at present - mild sliding scale insulin Left breast cancer, s/p left lymph node dissection and chemotherapy, scheduled to begin radiotherapy - monitor continue pain meds History of subdural hematoma, now improving - head CT: No acute intracranial abnormality. Subdural hemorrhage along the falx, previously seen on CT dated 04/02/2024 has significantly decreased or resolved. Morbid obesity - counseled DVT Prophylaxis Lovenox Goals of care: Full code, discussed for >23 min Plan discussed with patient Plan discussed with Dr. Holman Plan discussed with: Patient, Other My Orders My Orders Orders - GETACHEW POWERS RESIDENT Procedure Category Date Status Time Potassium Effervesent PHA 04/25/24 Logged Tab (Klor-Con/Ef) 11:15 Magnesium LAB 04/25/24 In Process 11:08 Date of Service: Apr 25, 2024 Billing Provider: MARIA A HOLMAN MD Common Visit Codes: [id number] INP/OBS CARE(HIGH) GETACHEW POWERS Apr 25, 2024 11:26 MARIA A HOLMAN MD Apr 25, 2024 22:43
[2024-04-25] MEDS: POTASSIUM EFFERVESENT TAB 25 MEQ PO ONE (12:20)
[2024-04-25] MEDS: HYDROcodone-ACET 5/325MG TAB PO ONE (14:18)
[2024-04-25] MEDS: REMDESIVIR 100mg in NS 230mL (3 DAY REGIMEN) IV SCH (15:03)
[2024-04-25] MEDS: HYDROcodone-ACET 5/325MG TAB PO PRN (20:10)
[2024-04-25] MEDS: AMITRIPTYLINE HCL 25 MG TAB PO SCH (21:33)
[2024-04-26] VITALS (13 sets, daily range): BP systolic 104–144; BP diastolic 56–99; PULSE 78–111; RESP 18–26; TEMP 96.3–98.7; O2SAT 93–100
[2024-04-26 08:35] LABS: Basophils # (auto) 0 10 ^3/uL (0-0.2); Basophils % (auto) 0.2 % (0.0-2.0); Eosinophils # (auto) 0.2 10 ^3/uL (0-0.8); Eosinophils % (auto) 2.2 % (0.0-7.0); Hematocrit 38.2 % (36.0-46.0); Hemoglobin 12.6 g/dL (12.2-16.2); Lymphocytes # (auto) 2.2 10 ^3/uL (0.4-5.4); Lymphocytes % (auto) 26.6 % (10.0-50.0); Mean Corpuscular Hemoglobin 30.6 pg (28.0-32.0); Mean Corpuscular Volume 92.9 fL (80.0-100.0); Monocytes # (auto) 0.6 10 ^3/uL (0-1.3); Monocytes % (auto) 7.1 % (0.0-12.0); Neutrophils # (auto) 5.4 10 ^3/uL (1.6-8.6); Neutrophils % (auto) 63.9 % (37.0-80.0); Nucleated Red Blood Cells % 0.1 %; Platelet Count (auto) 192 10^3/uL (140-450); Red Blood Cells 4.11 10^6/uL (4.0-5.20); Red Cell Distribution Width 15.2 % (11.8-14.3); White Blood Cell 8.4 10^3/uL (4.4-10.8)
[2024-04-26 09:04] LABS: Anion Gap 11 (5-15); Calcium 9.1 mg/dL (8.7-10.4); Carbon Dioxide 21 mmol/L (20-31); Chloride 107 mmol/L (98-107); Sodium 139 mmol/L (136-145)
[2024-04-26 09:10] LABS: BUN/Creatinine Ratio 19.3 (10.0-20.0); Blood Urea Nitrogen 11 mg/dL (9-23); Magnesium 1.6 mg/dL (1.6-2.6)
[2024-04-26 09:11] LABS: Glucose 127 mg/dL (74-106); Potassium 3.3 mmol/L (3.5-5.1)
[2024-04-26] MEDS: ENOXAPARIN SOD 40 MG/0.4 ML SYRINGE SC SCH (09:41)
[2024-04-26] MEDS: POTASSIUM EFFERVESENT TAB 25 MEQ PO ONE (11:05)
--- NOTE | 2024-04-26 15:09 | DVHPNRES ---
Progress Note Date Seen: Apr 26, 2024 Resident Creating Document: JOSE CRUZ MOORE RESIDENT Medical Necessity Reason Pt with a Central, PICC or Fol: No Subjective Review of Systems Patient is a 69-year-old female with past medical history of COPD, heart failure with preserved ejection fraction, left breast cancer status post lymph node dissection and chemotherapy, CAD, dm, HLD, HTN, CVA, peripheral neuropathy, obstructive sleep apnea on CPAP, schizophrenia, multiple falls, who came in due to dyspnea. According to the patient, she woke up this morning and she felt like she could not breathe, she subsequently tried to use her albuterol inhaler 3 times which helped a little bit however she continued experiencing dyspnea and shortness of breadth. Her caregiver subsequently called the ambulance that brought her to the hospital. She denies having similar symptoms in the past. Patient notes that fiber for roommates have tested positive for COVID. Patient has a history of left breast cancer, status post lymph node dissection and has completed chemotherapy, scheduled to begin radiotherapy soon. Note, patient was recently treated for a UTI at [facility], she also was noted to have a subdural hematoma on 04/02/2024, which is significantly reduced/resolved in the most recent head CT. Past surgical history: Cholecystectomy, bilateral salpingo-oophorectomy, left a xillary lymph node dissection Home medications: Albuterol, amitriptyline, enalapril, furosemide, gabapentin, insulin, lactulose, Protonix, sertraline, semaglutide, simvastatin Past Hospitalization: 04/02/2024 at [facility] status post fall and subdural hematoma Social & Personal history: Patient lives with her roommates and has a caregiver. Denies using tobacco, alcohol or drugs. Remote alcohol use history, however, [id number] use only Allergies: Denies Patient seen and examined at bedside. Patient is alert and oriented to time, place person and responding to all questions. Patient reports improving symptoms, titrated oxygen down to 1.5 L Objective vital signs Vital Sign Date Time Temp Pulse Resp B/P (MAP) Pulse Ox O2 Delivery O2 Flow Rate FiO2 04/26/24 13:00 97.7 78 18 144/76 (98) 96 97.7 04/26/24 10:00 Venturi Mask 3.0 04/26/24 10:00 N/A Total Intake and Output 04/25/24 04/25/24 04/26/24 15:00 23:00 07:00 Intake Total 80 ml 0 ml 500 ml Output Total 75 ml 300 ml Balance 5 ml 0 ml 200 ml medications Current Medications Medications Dose Ordered Sig/Kerry Route Start Time Stop Time Status Last Admin Dose Admin Albuterol 2.5 mg Q4HPRN PRN NEB 04/23/24 18:45 Ipratropium [place] 0.5 mg Q4HPRN PRN NEB 04/23/24 18:45 Diagnostic Test (Pha) 1 strip ACHS 04/23/24 22:00 04/26/24 12:30 1 STRIP Insulin Human Regular ACHS SC 04/23/24 22:00 04/26/24 12:30 6 UNITS Dextrose 50 ml UD PRN IV 04/23/24 20:45 Ceftriaxone Sodium 50 ml @ 100 mls/hr DAILY@09 IV 04/24/24 09:00 04/26/24 09:40 100 MLS/HR Remdesivir 0 ml @ 0 mls/hr PER PHARMACY IV 04/24/24 08:30 04/27/24 08:29 Remdesivir 100 mg/ Sodium Chloride 250 ml @ 250 mls/hr DAILY@1500 IV 04/25/24 15:00 04/26/24 15:59 04/25/24 15:03 250 MLS/HR Azithromycin 250 ml @ 125 mls/hr DAILY@1800 IV 04/24/24 18:00 04/25/24 17:49 125 MLS/HR Acetaminophen/ Hydrocodone Bitart 1 tab Q4HPRN PRN PO 04/25/24 14:15 04/26/24 12:30 1 TAB Enoxaparin Sodium 40 mg DAILY SC 04/26/24 10:00 04/26/24 09:41 40 MG Amitriptyline HCl 100 mg HS PO 04/25/24 22:00 04/25/24 21:33 100 MG Examination General Appearance: Cooperative. Well developed. Well nourished. NAD Head Exam: Normal inspection Neck Exam: Normal inspection. Non-tender. Normal alignment Pulmonary/Respiratory: Chest non-tender. Clear bilateral breath sounds, no crackles, no wheezing. Cardiovascular/Chest: Regular rate and rhythm. No murmurs. No JVD. Peripheral Pulses: 2+ Radial (R). 2+ Radial (L). 2+ Pedal (R). 2+ Pedal (L) Abdominal Exam: Normal bowel sounds. Soft. normal abdomen, no visible veins, mild tenderness to palpation No hepatospenomegaly. No masses Ankle Exam: Negative ankle edema Lower extremities: Trace lower extremity edema Neuro/Mental Status: A&O x4. Coherent. Thoughts/Psych: Normal thought pattern. Appropriate mood and affect. Good judgement and insight Skin Exam: Normal inspection. Normal color. Warm. Dry laboratory and microbiology Laboratory Tests 04/26/24 07:57 Test 04/26/24 07:57 Range/Units Serum Glucose 127 H 74-106 mg/dL Microbiology Date/Time Source Procedure Growth Status 04/24/24 18:59 Blood Blood Culture - Preliminary NO GROWTH AFTER 24 HOURS OF INCUBATION. Resulted 04/23/24 10:20 Voided Urine Urine Culture - Preliminary Resulted Labs and/or images reviewed: Labs reviewed by me, Image(s) reviewed by me Problem List/Assessment/Plan Problem List/Assessment/Plan Cytokine Storm Syndrome3? Acute hypoxic respiratory failure COVID-19 infection Sepsis can not be ruled out NSTEMI type 2 likely due to above Ruled out pulmonary embolism COPD exacerbation, mild Bronchiectasis - CXR: No acute disease - Ordered blood cultures, urine culture - CT angiography: No findings of pulmonary artery hypertension. No abnormal filling defects to suggest pulmonary emboli. - IV ceftriaxone, IV azithromycin - IV NS 250 mL bolus x3 - IV methylprednisolone 62.5 mg once - IV remdesivir per pharmacy - ipratropium and albuterol med nebs Acute complicated UTI, fungal - IV fluconazole 200 mg for 3 days Chronic diastolic heart failure with preserved ejection fraction 70%, currently stable - monitor History of schizophrenia, stable - monitor - resumed home amitriptyline Type 2 diabetes Hypertension, blood pressure on the softer side at present - mild sliding scale insulin Left breast cancer, s/p left lymph node dissection and chemotherapy, scheduled to begin radiotherapy - monitor History of subdural hematoma, now improving - head CT: No acute intracranial abnormality. Subdural hemorrhage along the falx, previously seen on CT dated 04/02/2024 has significantly decreased or resolved. Morbid obesity - counseled Goals of care: Full code, discussed for >16 minutes on 04/23/24 Plan discussed with patient Plan discussed with Dr. Hernandez critical care time 45 mins Plan discussed with: Patient, Other (RN) Date of Service: Apr 26, 2024 Billing Provider: MARIA A HERNANDEZ MD Common Visit Codes: [id number] CARE 30-74 MIN JOSE CRUZ MOORE [facility] Apr 26, 2024 15:09 MARIA A HERNANDEZ MD Apr 27, 2024 11:07
[2024-04-26] MEDS: FLUCONAZOLE 200MG/100ML 100 ML IV ONE (17:34)
[2024-04-27] VITALS (10 sets, daily range): BP systolic 115–135; BP diastolic 55–99; PULSE 81–96; RESP 16–22; TEMP 97.9–98.8; O2SAT 94–100
[2024-04-27] MEDS: FLUCONAZOLE 200MG/100ML 100 ML IV SCH (11:34)
[2024-04-27 11:37] LABS: Potassium 3.7 mmol/L (3.5-5.1)
[2024-04-27 11:46] LABS: Magnesium 1.6 mg/dL (1.6-2.6)
--- NOTE | 2024-04-27 15:50 | DVHDSRES ---
Discharge Summary Date of Admission Resident Creating Document: JOSE CRUZ MOORE RESIDENT Apr 23, 2024 at 18:32 Date of Discharge: Apr 27, 2024 Admitting Diagnosis Dyspnea, shortness of breath Labs/Diagnostic Data: Laboratory Results Test 04/27/24 11:39 04/27/24 10:48 04/26/24 07:57 04/24/24 09:10 POC Glucose 255 mg/dl (70-106) Potassium Level 3.7 mmol/L (3.5-5.1) Magnesium Level 1.6 mg/dL (1.6-2.6) White Blood Count 8.4 10^3/uL (4.4-10.8) Red Blood Count 4.11 10^6/uL (4.0-5.20) Hemoglobin 12.6 g/dL (12.2-16.2) Hematocrit 38.2 % (36.0-46.0) Mean Corpuscular Volume 92.9 fL (80.0-100.0) Mean Corpuscular Hemoglobin 30.6 pg (28.0-32.0) Mean Corpuscular Hemoglobin Concent 33.0 g/dL (32.0-36.0) Red Cell Distribution Width 15.2 % (11.8-14.3) Platelet Count 192 10^3/uL (140-450) Mean Platelet Volume 6.7 fL (6.9-10.8) Neutrophils (%) (Auto) 63.9 % (37.0-80.0) Lymphocytes (%) (Auto) 26.6 % (10.0-50.0) Monocytes (%) (Auto) 7.1 % (0.0-12.0) Eosinophils (%) (Auto) 2.2 % (0.0-7.0) Basophils (%) (Auto) 0.2 % (0.0-2.0) Neutrophils # (Auto) 5.4 10 ^3/uL (1.6-8.6) Lymphocytes # (Auto) 2.2 10 ^3/uL (0.4-5.4) Monocytes # (Auto) 0.6 10 ^3/uL (0-1.3) Eosinophils # (Auto) 0.2 10 ^3/uL (0-0.8) Basophils # (Auto) 0 10 ^3/uL (0-0.2) Nucleated Red Blood Cells 0.1 % Sodium Level 139 mmol/L (136-145) Chloride Level 107 mmol/L (98-107) Carbon Dioxide Level 21 mmol/L (20-31) Anion Gap 11 (5-15) Blood Urea Nitrogen 11 mg/dL (9-23) Creatinine 0.57 mg/dL (0.550-1.02) Glomerular Filtration Rate Calc 100 mL/min (>90) BUN/Creatinine Ratio 19.3 (10.0-20.0) Serum Glucose 127 mg/dL (74-106) Calcium Level 9.1 mg/dL (8.7-10.4) Lactic Acid Level 1.1 mmol/L (0.4-2.0) Test 04/24/24 08:38 04/23/24 21:33 04/23/24 21:15 04/23/24 12:06 Vitamin D 25-Hydroxy 51.4 ng/mL (30.0-100) Thyroid Stimulating Hormone (TSH) 0.70 uIU/mL (0.55-4.78) Hemoglobin A1c 7.6 % A1C (<5.7) Influenza Type A Antigen Negative (Negative) Influenza Type B Antigen Negative (Negative) SARS-CoV-2 Antigen (Rapid) Positive (NEGATIVE) Troponin I High Sensitivity 87 ng/L (</=34) Test 04/23/24 10:20 04/23/24 09:10 Urine Color Light-yellow (Yellow) Urine Clarity Clear (Clear) Urine pH 5.5 (5.0-9.0) Urine Specific [place] 1.008 (1.001-1.035) Urine Protein Trace (Negative) Urine Ketones Negative (Negative) Urine Blood Negative /uL (Negative) Urine Nitrite Negative (Negative) Urine Bilirubin Negative (Negative) Urine Urobilinogen Normal mg/dL (Negative) Urine Leukocyte Esterase 2+ /uL (Negative) Urine RBC 3 /hpf (0 - 4) Urine WBC 47 /hpf (0 - 5) Urine Squamous Epithelial Cells Few /hpf (<5) Urine Bacteria Few /hpf (None Seen) Urine Yeast (Budding) Moderate /hpf (None Seen) Urine Glucose 4+ mg/dL (Normal) Prothrombin Time 11.2 sec (9.3-11.8) Prothrombin Time INR 1.06 (0.9-1.15) Activated Partial Thromboplast Time 26.7 SEC (24.5-34.5) D-Dimer, Quantitative 4.39 mg/L FEU (0.0-0.49) Total Bilirubin 0.2 mg/dL (0.2-1.0) Aspartate Amino Transferase (AST) 37 U/L (13-40) Alanine Aminotransferase (ALT) 22 U/L (7-40) Alkaline Phosphatase 122 U/L (46-116) B-Type Natriuretic Peptide 30.36 pg/mL (0-100) Total Protein 7.3 g/dL (5.7-8.2) Albumin 3.9 g/dL (3.2-4.8) Other Laboratory Tests 04/27/24 10:48 04/26/24 07:57 Brief Hx & Hospital Course: Patient is a 69-year-old female with past medical history of COPD, heart failure with preserved ejection fraction, left breast cancer status post lymph node dissection and chemotherapy, CAD, dm, HLD, HTN, CVA, peripheral neuropathy, obstructive sleep apnea on CPAP, schizophrenia, multiple falls, who came in due to dyspnea. According to the patient, she woke up this morning and she felt like she could not breathe, she subsequently tried to use her albuterol inhaler 3 times which helped a little bit however she continued experiencing dyspnea and shortness of breadth. Her caregiver subsequently called the ambulance that brought her to the hospital. She denies having similar symptoms in the past. Patient notes that fiber for roommates have tested positive for COVID. Patient has a history of left breast cancer, status post lymph node dissection and has completed chemotherapy, scheduled to begin radiotherapy soon. Note, patient was recently treated for a UTI at [facility], she also was noted to have a subdural hematoma on 04/02/2024, which is significantly reduced/resolved in the most recent head CT. Hospital course: Chest x-ray showed no acute disease. CT angiography showed no findings of pulmonary artery hypertension. No abnormal filling defects to suggest pulmonary emboli. Patient tested positive for COVID-19. Patient was started on IV ceftriaxone, azithromycin, 1 dose of IV methylprednisolone and IV remdesivir per pharmacy. Ipratropium and albuterol med nebs were also ordered. Owing to patient's heart failure, judicious use of IV NS was employed, patient received IV NS to 50 mL bolus x3. Patient was also treated for IV fluconazole 200 mg for 3 days for possible fungal UTI. On the day of discharge, patient was titrated back to room air without any difficulty, she denied experiencing any shortness of breath or dyspnea and SpO2 maintained above 92%. Patient exhibited stable vital signs and appeared well. Her hospital course was uncomplicated. Patient was asked if she required transportation back home, patient noted that her caregiver who lives with her we will pick her up. General Appearance: Cooperative. Well developed. Well nourished. NAD Head Exam: Normal inspection Neck Exam: Normal inspection. Non-tender. Normal alignment Pulmonary/Respiratory: Chest non-tender. Clear bilateral breath sounds, no crackles, no wheezing. Cardiovascular/Chest: Regular rate and rhythm. No murmurs. No JVD. Peripheral Pulses: 2+ Radial (R). 2+ Radial (L). 2+ Pedal (R). 2+ Pedal (L) Abdominal Exam: Normal bowel sounds. Soft. normal abdomen, no visible veins, mild tenderness to palpation No hepatospenomegaly. No masses Ankle Exam: Negative ankle edema Lower extremities: Trace lower extremity edema Neuro/Mental Status: A&O x4. Coherent. Thoughts/Psych: Normal thought pattern. Appropriate mood and affect. Good judgement and insight Skin Exam: Normal inspection. Normal color. Warm. Dry Condition at Discharge: Good Final Diagnosis/Problems List Cytokine Storm Syndrome3? Acute hypoxic respiratory failure COVID-19 infection Sepsis can not be ruled out NSTEMI type 2 likely due to above Ruled out pulmonary embolism COPD exacerbation, mild Bronchiectasis Acute complicated UTI, fungal Chronic diastolic heart failure with preserved ejection fraction 70%, currently stable History of schizophrenia, stable Type 2 diabetes Hypertension, blood pressure on the softer side at present Left breast cancer, s/p left lymph node dissection and chemotherapy, scheduled to begin radiotherapy History of subdural hematoma, now improving Morbid obesity Discharge Disposition: Home Discharge Instruct/Medications Diet: Consistent carbohydrate, Cardiac 2g Na,low cholest Activity: No Restrictions, As Tolerated Follow Up/Referral: Please follow up with PCP in 1-2 weeks Medications: Continue home medications Discharge Statement: "Patient was advised to return to the ER or call 911 if any headaches, dizziness, shortness of breath, chest pain, abdominal pain, bleeding, fevers, or worsening of medical condition. Patient was counseled about treatment plan, medications, possible side effects, patientverbalized understanding. All questions were answered to the best of my ability. This discharge took greater then 30 minutes in planning, reviewing documentation, counseling the patient, and discussing with other team members." ASSESSMENT ASSESSMENT Assessment Cytokine Storm Syndrome3? Acute hypoxic respiratory failure COVID-19 infection Sepsis can not be ruled out NSTEMI type 2 likely due to above Ruled out pulmonary embolism COPD exacerbation, mild Bronchiectasis Acute complicated UTI, fungal Chronic diastolic heart failure with preserved ejection fraction 70%, currently stable History of schizophrenia, stable Type 2 diabetes Hypertension, blood pressure on the softer side at present Left breast cancer, s/p left lymph node dissection and chemotherapy, scheduled to begin radiotherapy History of subdural hematoma, now improving Morbid obesity Date of Service: Apr 27, 2024 Billing Provider: MARIA A HOLMAN MD Common Visit Codes: 30732-XXR/OBS DISCH DAY >30min JOSE CRUZ MOORE RESIDENT Apr 27, 2024 15:50 MARIA A HOLMAN MD Apr 28, 2024 08:29
[2024-04-27] MEDS: MAGNESIUM SULFATE 1GM/100ML 100 ML IV SCH (17:01)
[2024-04-28] MEDS ORDERED: AZIT500T66 PO (06:31)
== END 2024-04-27 21:00 | disposition home or self-care (01) | DRG 871 ==
LOC: EDBD 08:07 → ER 08:07 → TELE 18:32 → TELE-EAST 18:38
PROVIDERS: ADMIT Internal Medicine; ATTEND Internal Medicine
PROC: XW033E5 Introduction of Remdesivir Anti-infective into Peripheral Vein, Percutaneous Approach, New Technology Group 5 (ICD-10-PCS; principal; 2024-04-24)
PROC: 5A09357 Assistance with Respiratory Ventilation, Less than 24 Consecutive Hours, Continuous Positive Airway Pressure (ICD-10-PCS; 2024-04-24)
PROC: 5A09357 Assistance with Respiratory Ventilation, Less than 24 Consecutive Hours, Continuous Positive Airway Pressure (ICD-10-PCS; 2024-04-25)
PROC: 5A09357 Assistance with Respiratory Ventilation, Less than 24 Consecutive Hours, Continuous Positive Airway Pressure (ICD-10-PCS; 2024-04-26)
PROC: 5A09357 Assistance with Respiratory Ventilation, Less than 24 Consecutive Hours, Continuous Positive Airway Pressure (ICD-10-PCS; 2024-04-27)
DX: A41.89 Other specified sepsis (principal); I21.A1 Myocardial infarction type 2; J96.01 Acute respiratory failure with hypoxia; U07.1 COVID-19; I50.32 Chronic diastolic (congestive) heart failure; N39.0 Urinary tract infection, site not specified; Z68.42 Body mass index [BMI] 45.0-49.9, adult; J44.1 Chronic obstructive pulmonary disease with (acute) exacerbation; I11.0 Hypertensive heart disease with heart failure; J47.9 Bronchiectasis, uncomplicated; G47.33 Obstructive sleep apnea (adult) (pediatric); F20.9 Schizophrenia, unspecified; E11.42 Type 2 diabetes mellitus with diabetic polyneuropathy; E78.5 Hyperlipidemia, unspecified; E66.01 Morbid (severe) obesity due to excess calories; D89.839 Cytokine release syndrome, grade unspecified; Z86.73 Personal history of transient ischemic attack (TIA), and cerebral infarction without residual deficits; Z95.1 Presence of aortocoronary bypass graft; Z90.710 Acquired absence of both cervix and uterus; Z90.49 Acquired absence of other specified parts of digestive tract; Z85.3 Personal history of malignant neoplasm of breast
CPT/HCPCS: 36415; 70450; 71045; 71275; 80048; 80053; 81001; 82306; 82962; 83036; 83605; 83735; 83880; 84132; 84443; 84484; 85025; 85379; 85610; 85730; 87040; 87086; 87426; 87804; 93005; 93970; 94660; G0378; J1450; J1815

== ENCOUNTER 2024-09-28 15:40 | Emergency (ER) | payer OTHER, MEDICAID ==
[~2024-09-28] VITALS: Ht 160 cm; Wt 73.0 kg
[~2024-09-28 15:40] MED LIST changes: -ALEN35TA18 PO; +AZIT500T66 PO; -CEPH500T PO; -PANT40TA57 PO
[2024-09-28 15:47] VITALS: BP 124/81; PULSE 93; RESP 15; TEMP 98.1; O2SAT 95
--- NOTE | 2024-09-28 16:00 | ED.PDOC ---
History of Present Illness HPI Comments 69-year-old female brought in by EMS presents with a chief complaint of muscle pain s/p mechanical fall x 1 hour ago. Patient states that she was going to the urgent care down the street when she slipped on the welcome mat and fell down onto her right side. Patient is now reporting pain to her right knee, right hip, and right shoulder. Patient has right sided deficits from a previous CVA. Chief Complaint: Fall Injury Time Seen by MD: 15:53 Primary Care Provider: UNKNOWN Reviewed Notes: Nurses Notes, Medications, Allergies Allergies: Coded Allergies: NO KNOWN ALLERGIES (Unverified , 06/25/14) Home Meds Active Scripts Azithromycin (Azithromycin) 500 Mg Tab, 1 TAB PO DAILY for 4 Days, #4 TAB Prov:JOSE CRUZ MOORE 04/28/24 Magnesium Citrate (MAGNESIUM CITRATE) 100 Mg Tab, 2-4 TAB OR QHSP PRN, #30 TAB prn constipation Prov:PER WALLACE MD 11/19/23 Potassium Chloride (POTASSIUM CHLORIDE CR) 10 Meq Tb, 1 TAB PO DAILY, #30 TAB 5 Refills Prov:FUNMILAYO ARCEO MD 05/17/23 Reported Medications Sucralfate (CARAFATE) 1 Gm Tab, 1 TAB PO BID for 90 Days, #180 04/26/24 Ferrous Sulfate (Ferosul) 325 Mg Tab, 1 TAB PO TID for 28 Days, #12 04/26/24 Atorvastatin Calcium (ATORVASTATIN CALCIUM) 40 Mg Tab, 1 TAB PO DAILY for 30 Days, #30 04/26/24 Metoprolol Tartrate (Metoprolol Tartrate) 100 Mg Tab, 1 TAB PO BID for 30 Days, #60 04/26/24 Metformin Hydrochloride (Metformin Hcl) 500 Mg Tab, 1 TAB PO BID for 30 Days, #60 04/26/24 Furosemide (Furosemide) 20 Mg Tab, 1 TAB PO DAILY for 90 Days, #90 04/26/24 Alendronate Sodium (Alendronate Sodium) 70 Mg Tab, 1 TAB PO QWEEKLY for 28 Days, #4 04/26/24 Pantoprazole Sodium Sesquihydr (Pantoprazole Sodium Dr) 40 Mg Tab, 20 MG PO DAILY for 90 Days, #90 04/26/24 Patients Own Medication (PATIENTS OWN MEDICATION) ., 4 TAB PO QPM for 90 Days, #360 PTS OWN MED-OBTAIN FROM PT AND SEND TO RX DRUG: PERPHENAZINE 4 MG TABLET FREQ: TAKE 4 TABLETS (16 MG) BY MOUTH EVERY EVENING 11/05/23 Budesonide-Formoterol Fumarate (Breyna 80-4.5 Mcg/Act) 1 Aer Aer, 1 AER INH UD 11/05/23 Albuterol Sulfate (Albuterol Sulfate Hfa) 108 Mcg/Act Aer, 108 MCG INH UD 11/05/23 Insulin Lispro (Insulin Lispro Kwikpen) 100 Unit/Ml Inj, 12 UNIT SC TIDAC for 83 Days, #30 11/05/23 Ondansetron HCl (Ondansetron Hydrochloride) 4 Mg Tab, 1 TAB PO DAILY for 30 Days, #30 11/05/23 Lactulose (Lactulose) 10 Gm/15 Ml Yaz, 30 ML PO DAILY Take 30 mL by mouth once daily for BOWEL MANAGEMENT. May hold if LOOSE STOOLS. 11/05/23 Ertugliflozin l-Pyroglutamic A (Steglatro) 15 Mg Tab, 1 TAB PO DAILY for 90 Days, #90 11/05/23 Semaglutide (Ozempic) 4 Mg/3 Ml Inj, 1 MG SC QWEEKLY for 28 Days, #3 11/05/23 Calcium Carbonate-Cholecalcife (Ultra Calcium + Vitamin D 600-10 mg-Mcg) 1 Tab Tab, 1 TAB PO DAILY 11/05/23 Cholecalciferol (Vitamin D-3) 5,000 Unit Cap, 1 CAP PO DAILY 11/05/23 Oxycodone HCl (Oxycontin) 15 Mg Tab, 1 TAB PO Q12HR for 30 Days, #60 TAKE 1 TABLET BY MOUTH EVERY 12 HOURS AT 7 AM AND AT 7 PM. 11/05/23 Insulin Glargine (Basaglar Kwikpen) 100 Unit/Ml Inj, 36 UNIT SC QPM for 30 Days, #83 11/05/23 Diphenhydramine Hcl (BANOPHEN) 50 Mg Cap, 2 CAP PO HS for 90 Days, #180 11/05/23 Oxycodone W/ Acetaminophen (Apap/Oxycodone) 1 Tab Tab, 1 TAB PO DAILY PRN for BREAKTHROUGH PAIN for 30 Days, #30 [10/325 MG] 11/05/23 Enalapril Maleate (Enalapril Maleate) 5 Mg Tab, 1 TAB PO DAILY 05/15/23 Gabapentin (Gabapentin) 600 Mg Tab, 1 TAB PO TID 05/08/23 Simvastatin (Simvastatin) 40 Mg Tab, 1 TAB PO QPM for 90 Days, #90 06/25/14 Sertraline Hcl (Sertraline Hcl) 100 Mg Tab, 2 TAB PO QAM for 30 Days, #60 06/25/14 Amitriptyline Hcl (Amitriptyline Hcl) 100 Mg Tab, 2 TAB PO QPM for 90 Days, #180 06/25/14 Information Source: Patient, Emergency Med Personnel Mode of Arrival: EMS Severity: Moderate Timing: Minutes Duration: Since onset 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), 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 Past Medical History PAST MEDICAL HISTORY: CAD, Cancer, CHF, COPD, CVA, Depression, DM, High Lipids, HTN, Schizophrenia, TIA Surgical History: CABG, Cholecystectomy, Hysterectomy, PTCA 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 History Family History Family History: Reviewed,noncontributory to illness Social History Smoker: Non-Smoker Alcohol: Denies ETOH Use Drugs: Denies Drug Use Lives In: Home Constitutional: denies: chills, diaphoresis, fatigue, fever, malaise, sweats, weakness, others EENTM: denies: blurred vision, double vision, ear bleeding, ear discharge, ear drainage, ear pain, ear ringing, eye pain, eye redness, hearing loss, mouth pain, mouth swelling, nasal discharge, nose bleeding, nose congestion, nose pain, photophobia, tearing, throat pain, throat swelling, voice changes, others Respiratory: denies: cough, hemoptysis, orthopnea, SOB at rest, shortness of breath, SOB with excertion, stridor, wheezing, others Cardiovascular: denies: chest pain, dizzy spells, diaphoresis, Dyspnea on exertion, edema, irregular heart beat, left arm pain, lightheadedness, palpitations, PND, syncope, others Gastrointestinal: denies: abdomen distended, abdominal pain, blood streaked bowels, constipated, diarrhea, dysphagia, difficulty swallowing, hematemesis, melena, nausea, poor appetite, poor fluid intake, rectal bleeding, rectal pain, vomiting, others Genitourinary: denies: abnormal vagina bleeding, burning, dyspareunia, dysuria, flank pain, frequency, hematuria, incontinence, pain, , vagina discharge, urgency, others Neurological: denies: dizziness, fainting, headache, left sided numbness, left sided weakness, numbness, paresthesia, pre-existing deficit, right sided numbness, right sided weakness, seizure, speech problems, tingling, tremors, we akness, others Musculoskeletal: reports: muscle pain; denies: back pain, gout, joint pain, joint swelling, muscle stiffness, neck pain, others Integumetry: denies: bruises, change in color, change in hair/nails, dryness, laceration, lesions, lumps, rash, wounds, others Allergic/Immunocompromised: denies: Difficulty Healing, Frequent Infections, Hives, Itching, others Hematologic/Lymphatic: denies: anemia, blood clots, easy bleeding, easy bruising, swollen glands, others Endocrine: denies: excessive hunger, excessive sweating, excessive thirst, excessive urination, flushing, intolerance to cold, intolerance to heat, unexplained weight gain, unexplained weight loss, others Psychiatric: denies: anxiety, bipolar disorder, depression, hopeless, panic disorder, schizophrenia, sleepless, suicidal, others All Other Systems: Reviewed and Negative Physical Exam General Appearance: Moderate Distress HEENT: Normal ENT Inspection, Pharynx Normal, TMs Normal Neck: Full Range of Motion, Non-Tender, Normal, Normal Inspection Respiratory: Chest Non-Tender, Lungs Clear, No Accessory Muscle Use, No Respiratory Distress, Normal Breath Sounds Cardiovascular: No Edema, No JVD, No Murmur, No Gallop, Normal Peripheral Pulses, Regular Rate/Rhythm Breast Exam: Deferred Gastrointestinal: No Organomegaly, Non Tender, No Pulsatile Mass, Normal Bowel Sounds, Soft Genitalia: Deferred Pelvic: Deferred Rectal: Deferred Extremities: No calf tenderness, Normal capillary refill, No pedal edema Musculoskeletal : Location: Right Extremity Location: Hip, Knee, Shoulder Apperance: Limited ROM, Tenderness: Moderate Neurologic: Alert, leveler II-XII nml as Tested, No Motor Deficits, Normal Affect, Normal Mood, No Sensory Deficits Cerebellar Function: Normal Reflexes: Normal Skin: Dry, Normal Color, Warm Lymphatic: No Adenopathy Was a procedure done? Was a procedure done?: No Differential Dx Considerations may include: Fracture, strain, contusion, syncope, autonomic dysfunction X-Ray, Labs, Meds, VS Vital Signs Date Time Temp Pulse Resp B/P (MAP) Pulse Ox O2 Delivery O2 Flow Rate FiO2 09/28/24 15:47 98.1 93 15 124/81 (95) 95 98.1 Lab Test 09/28/24 16:44 Range/Units White Blood Count 7.1 4.4-10.8 10^3/uL Red Blood Count 4.53 4.0-5.20 10^6/uL Hemoglobin 13.8 12.2-16.2 g/dL Hematocrit 41.1 36.0-46.0 % Mean Corpuscular Volume 90.7 80.0-100.0 fL Mean Corpuscular Hemoglobin 30.5 28.0-32.0 pg Mean Corpuscular Hemoglobin Concent 33.6 32.0-36.0 g/dL Red Cell Distribution Width 15.6 H 11.8-14.3 % Platelet Count 193 140-450 10^3/uL Mean Platelet Volume 6.8 L 6.9-10.8 fL Neutrophils (%) (Auto) 68.2 37.0-80.0 % Lymphocytes (%) (Auto) 19.9 10.0-50.0 % Monocytes (%) (Auto) 9.4 0.0-12.0 % Eosinophils (%) (Auto) 2.2 0.0-7.0 % Basophils (%) (Auto) 0.3 0.0-2.0 % Neutrophils # (Auto) 4.8 1.6-8.6 10 ^3/uL Lymphocytes # (Auto) 1.4 0.4-5.4 10 ^3/uL Monocytes # (Auto) 0.7 0-1.3 10 ^3/uL Eosinophils # (Auto) 0.2 0-0.8 10 ^3/uL Basophils # (Auto) 0 0-0.2 10 ^3/uL Nucleated Red Blood Cells 0.1 % Sodium Level 138 136-145 mmol/L Potassium Level 4.1 3.5-5.1 mmol/L Chloride Level 103 98-107 mmol/L Carbon Dioxide Level 26 20-31 mmol/L Anion Gap 9 5-15 Blood Urea Nitrogen 19 9-23 mg/dL Creatinine 0.65 0.550-1.02 mg/dL Glomerular Filtration Rate Calc 96 >90 mL/min BUN/Creatinine Ratio 29.2 H 10.0-20.0 Serum Glucose 119 H 74-106 mg/dL Calcium Level 9.5 8.7-10.4 mg/dL The patient's CBC is within normal limits The chemistry panel is within normal limits The x-ray of the right shoulder is negative The x-ray of the right hip is negative The x-ray of the right knee is negative At this time, the patient is being admitted to the hospitalist An IV Hep-Lock is being established Images Reviewed?: Images reviewed and evaluated by me Time of 1ST Reevaluation: 16:23 Reevaluation 1ST: Improved Patient Education/Counseling: Diagnosis, Treatment, Prognosis Family Education/Counseling: No Family Present Departure 1 Departure Time of Disposition: 18:12 Impression: Primary Impression: Autonomic dysfunction Additional Impressions: Contusion of right shoulder Qualified Codes: S40.011A - Contusion of right shoulder, initial encounter Contusion of right hip Qualified Codes: S70.01XA - Contusion of right hip, initial encounter Contusion of right knee Qualified Codes: S80.01XA - Contusion of right knee, initial encounter Disposition: ADMITTED INPATIENT Admit to: Med Surg Condition: Fair Critical Care Note Critical Care Time?: No Stability Stability form required: Yes Unstable for transfer: ED Physician Assesment (Clinical assesment) Heart Score Heart Score: Heart Score Response (Comments) Value History N/A 0 EKG N/A 0 Age N/A 0 Risk Factors N/A 0 Troponin N/A 0 Total 0 I personally scribed for ERON LOVE MD ([email or web address]) on 09/28/24 at 16:00. Electronically submitted by Antwan Solo ([email or web address]). ERON LOVE MD Sep 28, 2024 16:00
--- NOTE | 2024-09-28 16:44 | DVH ---
CLINICAL INDICATION: trauma TECHNIQUE: right XY R HIP COMPLETE XRAY Comparison: L HIP COMPLETE XRAY on DOS: 11/12/21 FINDINGS/IMPRESSION: : There is no evidence of acute fracture or dislocation. Soft tissues are unremarkable.
--- NOTE | 2024-09-28 16:46 | DVH ---
CLINICAL INDICATION: trauma TECHNIQUE: right XY R SHOULDER 2+ VIEW XRAY Comparison: XY L SHOULDER 2+ VIEW XRAY on DOS: 07/03/22 FINDINGS/IMPRESSION: : There is no evidence of acute fracture or dislocation. Soft tissues are unremarkable.
--- NOTE | 2024-09-28 16:52 | DVH ---
EXAM: XY R KNEE 4V XRAY HISTORY: 69-year-old female with right knee pain. COMPARISON: None TECHNIQUE: Four views of the right knee were performed. FINDINGS: No acute fracture is identified about the right knee. There are tricompartmental marginal osteophyte s. There is moderate joint space narrowing of the medial compartment. No lateral patellar tilt or sub luxation on the sunrise view. There may be a small joint effusion. IMPRESSION: 1. No acute fracture of the right knee. 2. Tricompartmental degenerative changes of the right knee, greatest in the medial compartment.
[2024-09-28 17:04] LABS: Basophils # (auto) 0 10 ^3/uL (0-0.2); Basophils % (auto) 0.3 % (0.0-2.0); Eosinophils # (auto) 0.2 10 ^3/uL (0-0.8); Eosinophils % (auto) 2.2 % (0.0-7.0); Hematocrit 41.1 % (36.0-46.0); Hemoglobin 13.8 g/dL (12.2-16.2); Lymphocytes # (auto) 1.4 10 ^3/uL (0.4-5.4); Lymphocytes % (auto) 19.9 % (10.0-50.0); Mean Corpuscular Hemoglobin 30.5 pg (28.0-32.0); Mean Corpuscular Hgb Conc. 33.6 g/dL (32.0-36.0); Mean Corpuscular Volume 90.7 fL (80.0-100.0); Monocytes # (auto) 0.7 10 ^3/uL (0-1.3); Monocytes % (auto) 9.4 % (0.0-12.0); Neutrophils # (auto) 4.8 10 ^3/uL (1.6-8.6); Neutrophils % (auto) 68.2 % (37.0-80.0); Nucleated Red Blood Cells % 0.1 %; Platelet Count (auto) 193 10^3/uL (140-450); Red Blood Cells 4.53 10^6/uL (4.0-5.20); Red Cell Distribution Width 15.6 % (11.8-14.3); White Blood Cell 7.1 10^3/uL (4.4-10.8)
[2024-09-28 17:09] LABS: Chloride 103 mmol/L (98-107); Potassium 4.1 mmol/L (3.5-5.1); Sodium 138 mmol/L (136-145)
[2024-09-28 17:10] LABS: Anion Gap 9 (5-15); Calcium 9.5 mg/dL (8.7-10.4); Carbon Dioxide 26 mmol/L (20-31)
[2024-09-28 17:15] LABS: BUN/Creatinine Ratio 29.2 (10.0-20.0); Blood Urea Nitrogen 19 mg/dL (9-23)
[2024-09-28 17:16] LABS: Glucose 119 mg/dL (74-106)
== END 2024-09-28 19:30 | disposition left against medical advice (07) ==
LOC: EDBD 15:40 → ER 15:40
DX: S40.011A Contusion of right shoulder, initial encounter (principal); S70.01XA Contusion of right hip, initial encounter; S80.01XA Contusion of right knee, initial encounter; F45.8 Other somatoform disorders; W01.0XXA Fall on same level from slipping, tripping and stumbling without subsequent striking against object, initial encounter; Y93.89 Activity, other specified; Y92.89 Other specified places as the place of occurrence of the external cause; Y99.8 Other external cause status; F20.9 Schizophrenia, unspecified; E78.5 Hyperlipidemia, unspecified; E11.43 Type 2 diabetes mellitus with diabetic autonomic (poly)neuropathy; F32.A Depression, unspecified; I11.0 Hypertensive heart disease with heart failure; I25.10 Atherosclerotic heart disease of native coronary artery without angina pectoris; I50.9 Heart failure, unspecified; J44.9 Chronic obstructive pulmonary disease, unspecified; Z79.4 Long term (current) use of insulin; Z79.84 Long term (current) use of oral hypoglycemic drugs; Z79.85 Long-term (current) use of injectable non-insulin antidiabetic drugs; Z79.899 Other long term (current) drug therapy; Z86.73 Personal history of transient ischemic attack (TIA), and cerebral infarction without residual deficits; Z90.49 Acquired absence of other specified parts of digestive tract; Z90.710 Acquired absence of both cervix and uterus; Z95.1 Presence of aortocoronary bypass graft; Z85.9 Personal history of malignant neoplasm, unspecified
CPT/HCPCS: 36415; 73030; 73502; 73564; 80048; 82947; 85025

== ENCOUNTER 2024-11-23 12:16 | Inpatient (IN) | payer OTHER, MEDICAID ==
[~2024-11-23] VITALS: Ht 157.5 cm; Wt 89.5 kg
--- NOTE | 2024-11-23 12:27 | ECG ---
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
--- NOTE | 2024-11-23 12:32 | ED.PDOC ---
History of Present Illness HPI Comments A 69 year-old female, with a PMHX of Breast Cancer for X2 years, COPD, HTN, DM, Stroke, and Asthma, presents to the ED via EMS with a chief complaint of general weakness with associated nausea, dysuria, and strong urine odor as of X1 day. Patient reports having both oral and IV chemotherapy yesterday. Patient notes taking Zofran for Nausea and Chemotherapy, with some alleviating factors noted. Patient has no further complaints at this time and otherwise denies further associated symptoms of V/D, fever, chills, headache, hematuria, or flank pain. Chief Complaint: General Weakness Time Seen by MD: 12:24 Primary Care Provider: UNKNOWN Reviewed Notes: Nurses Notes, Medications, Allergies Allergies: Coded Allergies: NO KNOWN ALLERGIES (Unverified , 06/25/14) Home Meds Active Scripts Azithromycin (Azithromycin) 500 Mg Tab, 1 TAB PO DAILY for 4 Days, #4 TAB Prov:JOSE CRUZ MOORE 04/28/24 Magnesium Citrate (MAGNESIUM CITRATE) 100 Mg Tab, 2-4 TAB OR QHSP PRN, #30 TAB prn constipation Prov:PER WALLACE MD 11/19/23 Potassium Chloride (POTASSIUM CHLORIDE CR) 10 Meq Tb, 1 TAB PO DAILY, #30 TAB 5 Refills Prov:FUNMILAYO ARCEO MD 05/17/23 Reported Medications Sucralfate (CARAFATE) 1 Gm Tab, 1 TAB PO BID for 90 Days, #180 04/26/24 Ferrous Sulfate (Ferosul) 325 Mg Tab, 1 TAB PO TID for 28 Days, #12 04/26/24 Atorvastatin Calcium (ATORVASTATIN CALCIUM) 40 Mg Tab, 1 TAB PO DAILY for 30 Days, #30 04/26/24 Metoprolol Tartrate (Metoprolol Tartrate) 100 Mg Tab, 1 TAB PO BID for 30 Days, #60 04/26/24 Metformin Hydrochloride (Metformin Hcl) 500 Mg Tab, 1 TAB PO BID for 30 Days, #60 04/26/24 Furosemide (Furosemide) 20 Mg Tab, 1 TAB PO DAILY for 90 Days, #90 04/26/24 Alendronate Sodium (Alendronate Sodium) 70 Mg Tab, 1 TAB PO QWEEKLY for 28 Days, #4 04/26/24 Pantoprazole Sodium Sesquihydr (Pantoprazole Sodium Dr) 40 Mg Tab, 20 MG PO DAILY for 90 Days, #90 04/26/24 Patients Own Medication (PATIENTS OWN MEDICATION) ., 4 TAB PO QPM for 90 Days, #360 PTS OWN MED-OBTAIN FROM PT AND SEND TO RX DRUG: PERPHENAZINE 4 MG TABLET FREQ: TAKE 4 TABLETS (16 MG) BY MOUTH EVERY EVENING 11/05/23 Budesonide-Formoterol Fumarate (Breyna 80-4.5 Mcg/Act) 1 Aer Aer, 1 AER INH UD 11/05/23 Albuterol Sulfate (Albuterol Sulfate Hfa) 108 Mcg/Act Aer, 108 MCG INH UD 11/05/23 Insulin Lispro (Insulin Lispro Kwikpen) 100 Unit/Ml Inj, 12 UNIT SC TIDAC for 83 Days, #30 11/05/23 Ondansetron HCl (Ondansetron Hydrochloride) 4 Mg Tab, 1 TAB PO DAILY for 30 Days, #30 11/05/23 Lactulose (Lactulose) 10 Gm/15 Ml Yaz, 30 ML PO DAILY Take 30 mL by mouth once daily for BOWEL MANAGEMENT. May hold if LOOSE STOOLS. 11/05/23 Ertugliflozin l-Pyroglutamic A (Steglatro) 15 Mg Tab, 1 TAB PO DAILY for 90 Days, #90 11/05/23 Semaglutide (Ozempic) 4 Mg/3 Ml Inj, 1 MG SC QWEEKLY for 28 Days, #3 11/05/23 Calcium Carbonate-Cholecalcife (Ultra Calcium + Vitamin D 600-10 mg-Mcg) 1 Tab Tab, 1 TAB PO DAILY 11/05/23 Cholecalciferol (Vitamin D-3) 5,000 Unit Cap, 1 CAP PO DAILY 11/05/23 Oxycodone HCl (Oxycontin) 15 Mg Tab, 1 TAB PO Q12HR for 30 Days, #60 TAKE 1 TABLET BY MOUTH EVERY 12 HOURS AT 7 AM AND AT 7 PM. 11/05/23 Insulin Glargine (Basaglar Kwikpen) 100 Unit/Ml Inj, 36 UNIT SC QPM for 30 Days, #83 11/05/23 Diphenhydramine Hcl (BANOPHEN) 50 Mg Cap, 2 CAP PO HS for 90 Days, #180 11/05/23 Oxycodone W/ Acetaminophen (Apap/Oxycodone) 1 Tab Tab, 1 TAB PO DAILY PRN for BREAKTHROUGH PAIN for 30 Days, #30 [10/325 MG] 11/05/23 Enalapril Maleate (Enalapril Maleate) 5 Mg Tab, 1 TAB PO DAILY 05/15/23 Gabapentin (Gabapentin) 600 Mg Tab, 1 TAB PO TID 05/08/23 Simvastatin (Simvastatin) 40 Mg Tab, 1 TAB PO QPM for 90 Days, #90 06/25/14 Sertraline Hcl (Sertraline Hcl) 100 Mg Tab, 2 TAB PO QAM for 30 Days, #60 06/25/14 Amitriptyline Hcl (Amitriptyline Hcl) 100 Mg Tab, 2 TAB PO QPM for 90 Days, #180 06/25/14 Information Source: Patient Mode of Arrival: EMS Severity: Moderate Timing: Hours Duration: Since onset Associated signs and symptoms general weakness with associated nausea, dysuria, and strong urine odor Past Medical History PAST MEDICAL HISTORY: CAD, Cancer, CHF, COPD, CVA, Depression, DM, High Lipids, HTN, Schizophrenia, TIA Surgical History: CABG, Cholecystectomy, Hysterectomy, PTCA GEOSCIENCE SPECIALIST History: No Pertinent GEOSCIENCE SPECIALIST History Family History Family History: Reviewed,noncontributory to illness Social History Smoker: Non-Smoker Alcohol: Denies ETOH Use Drugs: Denies Drug Use Lives In: Home Constitutional: reports: weakness; denies: chills, diaphoresis, fatigue, fever, malaise, sweats, others EENTM: denies: blurred vision, double vision, ear bleeding, ear discharge, ear drainage, ear pain, ear ringing, eye pain, eye redness, hearing loss, mouth pain, mouth swelling, nasal discharge, nose bleeding, nose congestion, nose pain, photophobia, tearing, throat pain, throat swelling, voice changes, others Respiratory: denies: cough, hemoptysis, orthopnea, SOB at rest, shortness of breath, SOB with excertion, stridor, wheezing, others Cardiovascular: denies: chest pain, dizzy spells, diaphoresis, Dyspnea on exertion, edema, irregular heart beat, left arm pain, lightheadedness, palpitations, PND, syncope, others Gastrointestinal: reports: nausea; denies: abdomen distended, abdominal pain, blood streaked bowels, constipated, diarrhea, dysphagia, difficulty swallowing, hematemesis, melena, poor appetite, poor fluid intake, rectal bleeding, rectal pain, vomiting, others Genitourinary: reports: dysuria, others (odor to urine ); denies: abnormal vagina bleeding, burning, dyspareunia, flank pain, frequency, hematuria, incontinence, pain, , vagina discharge, urgency Neurological: denies: dizziness, fainting, headache, left sided numbness, left sided weakness, numbness, paresthesia, pre-existing deficit, right sided numbness, right sided weakness, seizure, speech problems, tingling, tremors, weakness, others Musculoskeletal: denies: back pain, gout, joint pain, joint swelling, muscle pain, muscle stiffness, neck pain, others Integumetry: denies: bruises, change in color, change in hair/nails, dryness, laceration, lesions, lumps, rash, wounds, others Allergic/Immunocompromised: denies: Difficulty Healing, Frequent Infections, Hives, Itching, others Hematologic/Lymphatic: denies: anemia, blood clots, easy bleeding, easy bruising, swollen glands, others Endocrine: denies: excessive hunger, excessive sweating, excessive thirst, excessive urination, flushing, intolerance to cold, intolerance to heat, unexplained weight gain, unexplained weight loss, others Psychiatric: denies: anxiety, bipolar disorder, depression, hopeless, panic disorder, schizophrenia, sleepless, suicidal, others All Other Systems: Reviewed and Negative Physical Exam General Appearance: Moderate Distress, Obese HEENT: Normal ENT Inspection, Pharynx Normal, TMs Normal Neck: Full Range of Motion, Non-Tender, Normal, Normal Inspection Respiratory: Chest Non-Tender, Lungs Clear, No Accessory Muscle Use, No Re spiratory Distress, Normal Breath Sounds Cardiovascular: No Edema, No JVD, No Murmur, No Gallop, Normal Peripheral Pulses Breast Exam: Deferred Gastrointestinal: No Organomegaly, No Pulsatile Mass, Normal Bowel Sounds, Soft, Suprapubic, Tenderness Genitalia: Deferred Pelvic: Deferred Rectal: Deferred Extremities: No calf tenderness, Normal capillary refill, Normal inspection, Normal range of motion, Non-tender, No pedal edema Musculoskeletal : Apperance: Normal Neurologic: Alert, manager property II-XII nml as Tested, No Motor Deficits, Normal Affect, Normal Mood, No Sensory Deficits Cerebellar Function: Normal Reflexes: Normal Skin: Dry, Normal Color, Warm Lymphatic: No Adenopathy Was a procedure done? Was a procedure done?: No EKG EKG : Pulse Rate (adult): 109 [place]: Normal Cardiac Rhythm: ST Differential Dx Considerations may include: Generalized weakness, electrolyte imbalance, autonomic dysfunction, dehydration, UTI X-Ray, Labs, Meds, VS Vital Signs Date Time Temp Pulse Resp B/P (MAP) Pulse Ox O2 Delivery O2 Flow Rate FiO2 11/23/24 16:09 99 11/23/24 15:31 107 20 97 Room Air 11/23/24 15:31 98.5 107 20 105/95 (98) 97 98.5 11/23/24 12:32 109 11/23/24 12:30 98.2 111 16 111/78 95 98.2 11/23/24 12:25 109 Lab Test 11/23/24 15:26 11/23/24 12:38 Range/Units Urine Color Colorless Yellow Urine Clarity Clear Clear Urine pH 6.0 5.0-9.0 Urine Specific [place] 1.035 1.001-1.035 Urine Protein Negative Negative Urine Ketones Negative Negative Urine Blood Negative Negative /uL Urine Nitrite 2+ H Negative Urine Bilirubin Negative Negative Urine Urobilinogen Normal Negative mg/dL Urine Leukocyte Esterase 1+ Negative /uL Urine RBC 3 0 - 4 /hpf Urine Microscopic WBC 23 H 0-5 /HPF Urine Squamous Epithelial Cells Few <5 /hpf Urine Bacteria Few H None Seen /hpf Urine Mucus Few None Seen Urine Glucose 4+ H Normal mg/dL White Blood Count 9.1 4.4-10.8 10^3/uL Red Blood Count 4.55 4.0-5.20 10^6/uL Hemoglobin 14.1 12.2-16.2 g/dL Hematocrit 40.9 36.0-46.0 % Mean Corpuscular Volume 90.0 80.0-100.0 fL Mean Corpuscular Hemoglobin 31.0 28.0-32.0 pg Mean Corpuscular Hemoglobin Concent 34.4 32.0-36.0 g/dL Red Cell Distribution Width 15.7 H 11.8-14.3 % Platelet Count 243 140-450 10^3/uL Mean Platelet Volume 6.6 L 6.9-10.8 fL Neutrophils (%) (Auto) 87.7 H 37.0-80.0 % Lymphocytes (%) (Auto) 5.8 L 10.0-50.0 % Monocytes (%) (Auto) 6.1 0.0-12.0 % Eosinophils (%) (Auto) 0.2 0.0-7.0 % Basophils (%) (Auto) 0.2 0.0-2.0 % Neutrophils # (Auto) 7.9 1.6-8.6 10 ^3/uL Lymphocytes # (Auto) 0.5 0.4-5.4 10 ^3/uL Monocytes # (Auto) 0.6 0-1.3 10 ^3/uL Eosinophils # (Auto) 0 0-0.8 10 ^3/uL Basophils # (Auto) 0 0-0.2 10 ^3/uL Nucleated Red Blood Cells 0.0 % Sodium Level 137 136-145 mmol/L Potassium Level 3.8 3.5-5.1 mmol/L Chloride Level 104 98-107 mmol/L Carbon Dioxide Level 24 20-31 mmol/L Anion Gap 9 5-15 Blood Urea Nitrogen 17 9-23 mg/dL Creatinine 0.73 0.550-1.02 mg/dL Glomerular Filtration Rate Calc 90 >90 mL/min BUN/Creatinine Ratio 23.3 H 10.0-20.0 Serum Glucose 246 H 74-106 mg/dL Calcium Level 10.0 8.7-10.4 mg/dL Current Medications Medications (Trade) Dose Ordered Sig/Kerry Route Start Time Stop Time Status Last Admin Sodium Chloride 500 ml @ 500 mls/hr Q1H ONCE IV 11/23/24 12:30 11/23/24 13:32 DC 11/23/24 15:30 IV Hep-Lock was established The patient was given a 500 cc bolus of normal saline The CBC and chemistry panel are within normal limits except for hyperglycemia at 246 At this time, the patient is being admitted to the hospitalist The patient understands and agrees with the management. The urine test is positive for UTI The patient is started on Levaquin IV piggyback Images Reviewed?: Images reviewed and evaluated by me Time of 1ST Reevaluation: 13:04 Reevaluation 1ST: Unchanged Patient Education/Counseling: Diagnosis, Treatment, Prognosis Family Education/Counseling: No Family Present SEPSIS Sepsis Screen Physician Orders Heplock Iv (11/23/24 12:25) Steam Hammer Operator (11/23/24 12:25) Blood Pressure (11/23/24 12:25) Pulse Oximetry (11/23/24 12:25) Vital Signs Date Time Temp Pulse Resp B/P (MAP) Pulse Ox O2 Delivery O2 Flow Rate FiO2 11/23/24 16:09 99 11/23/24 15:31 107 20 97 Room Air 11/23/24 15:31 98.5 107 20 105/95 (98) 97 98.5 11/23/24 12:32 109 11/23/24 12:30 98.2 111 16 111/78 95 98.2 11/23/24 12:25 109 Laboratory Tests Test 11/23/24 12:38 White Blood Count 9.1 10^3/uL (4.4-10.8) Medications Medications Dose Ordered Sig/Kerry Route Start Time Stop Time Status Last Admin Dose Admin Sodium Chloride 500 ml @ 500 mls/hr Q1H ONCE IV 11/23/24 12:30 11/23/24 13:32 DC 11/23/24 15:30 Departure 1 Departure Time of Disposition: 16:10 Impression: Primary Impression: Autonomic dysfunction Additional Impressions: Status post chemotherapy UTI (lower urinary tract infection) Disposition: ADMITTED INPATIENT Admit to: [facility] Condition: Fair Critical Care Note Critical Care Time?: No Stability Stability form required: Yes Unstable for transfer: ED Physician Assesment (Clinical assesment) Heart Score Heart Score: Heart Score Response (Comments) Value History Slightly Suspicious 0 EKG Normal 0 Age >65 2 Risk Factors >3 or Hx ASHD 2 Troponin Normal limit 0 Total 4 I personally scribed for ERON LOVE MD ([email or web address]) on 11/23/24 at 12:32. Electronically submitted by Tianna Bo ([facility]). ERON LOVE MD Nov 23, 2024 12:32
[2024-11-23 12:58] LABS: Hematocrit 40.9 % (36.0-46.0); Hemoglobin 14.1 g/dL (12.2-16.2); Mean Corpuscular Hemoglobin 31.0 pg (28.0-32.0); Mean Corpuscular Volume 90.0 fL (80.0-100.0); Nucleated Red Blood Cells % 0.0 %
[2024-11-23 13:05] LABS: Chloride 104 mmol/L (98-107); Potassium 3.8 mmol/L (3.5-5.1); Sodium 137 mmol/L (136-145)
[2024-11-23 13:06] LABS: Anion Gap 9 (5-15); Calcium 10.0 mg/dL (8.7-10.4); Carbon Dioxide 24 mmol/L (20-31)
[2024-11-23 13:11] LABS: BUN/Creatinine Ratio 23.3 (10.0-20.0); Blood Urea Nitrogen 17 mg/dL (9-23); Glucose 246 mg/dL (74-106)
[2024-11-23] MEDS: SODIUM CHLORIDE 0.9% 500 ML IV ONE (15:30)
[2024-11-23 16:23] LABS: Urine Protein, UAD Negative (Negative)
[2024-11-23] MEDS ORDERED: TEMAZEPAM 15 MG CAP PO PRN (19:30)
[2024-11-23] MEDS ORDERED: ONDANSETRON HCL 4 MG/2 ML VIAL IV PRN (19:30)
[2024-11-23] MEDS ORDERED: DEXTROSE (50%) 50ML SYRG IV PRN (19:30)
[2024-11-23] MEDS ORDERED: ACETAMINOPHEN 325 MG TAB PO PRN (19:30)
--- NOTE | 2024-11-23 21:22 | DVHHP2 ---
History of Present Illness Reason for Visit: Generalized weakness History of Present Illness 69-year-old female presents for evaluation of generalized weakness. Patient reports a two day history of generalized weakness with associated dysuria, nausea and smelly urine. Patient has a history of breast cancer currently undergoing chemotherapy. No fever or chills. No abdominal pain. Past Medical History Cancer, CAD, CHF, COPD, depression, diabetes mellitus, dyslipidemia, hypertension Past Surgical History Cholecystectomy, hysterectomy, PTCA, CABG Family History Noncontributory Smoke: No ALCOHOL: none Drugs: None Lives: with Family Review of Systems Review of Systems Review of systems are currently negative otherwise addressed in HPI. Allergies: Coded Allergies: NO KNOWN ALLERGIES (Unverified , 06/25/14) Medications Current Medications Medications Dose Ordered Sig/Kerry Route Start Time Stop Time Status Last Admin Dose Admin Metoprolol Tartrate 25 mg BID PO 11/23/24 22:00 Furosemide 20 mg DAILY PO 11/24/24 10:00 Atorvastatin Calcium 40 mg HS PO 11/23/24 22:00 Pantoprazole Sodium 40 mg DAILY@0600 PO 11/24/24 06:00 Ceftriaxone Sodium 50 ml @ 100 mls/hr DAILY@09 IV 11/24/24 09:00 Diagnostic Test (Pha) 1 strip ACHS 11/23/24 22:00 Insulin Human Regular ACHS SC 11/23/24 22:00 Dextrose 50 ml UD PRN IV 11/23/24 19:30 Acetaminophen/ Hydrocodone Bitart 1 tab Q4HP PRN PO 11/23/24 19:30 Temazepam 15 mg QHSP PRN PO 11/23/24 19:30 Ondansetron HCl 4 mg Q4HP PRN IV 11/23/24 19:30 Acetaminophen 650 mg Q6HP PRN PO 11/23/24 19:30 Exam Vital Signs Vital Signs Date Time Temp Pulse Resp B/P (MAP) Pulse Ox O2 Delivery O2 Flow Rate FiO2 11/23/24 21:02 98.8 116 15 143/83 (103) 93 98.8 11/23/24 15:31 Room Air Exam Gen: 69-year-old female in mild distress, obese Skin: Warm, dry, normal color and texture, no rash. HEENT: Normocephalic atraumatic, mucous membranes moist and pink. Neck: Cervical and supraclavicular nodes normal without enlargement, trachea is midline, thyroid gland is normal without masses. Pulmonary: Clear to auscultation and percussion bilaterally. Cardiac: Regular rate and rhythm. No murmur Abdomen: Soft, nontender, nondistended, bowel sounds present all 4 quadrants, no guarding, no rigidity, no organomegaly. Extremities: No cyanosis, clubbing, no edema Neuro: Cranial nerves II through XII grossly intact, normal affect and speech, no focal motor deficits. Labs/Xrays Labs Test 11/23/24 15:26 11/23/24 12:38 Range/Units Urine Color Colorless Yellow Urine Clarity Clear Clear Urine pH 6.0 5.0-9.0 Urine Specific [place] 1.035 1.001-1.035 Urine Protein Negative Negative Urine Ketones Negative Negative Urine Blood Negative Negative /uL Urine Nitrite 2+ H Negative Urine Bilirubin Negative Negative Urine Urobilinogen Normal Negative mg/dL Urine Leukocyte Esterase 1+ Negative /uL Urine RBC 3 0 - 4 /hpf Urine Microscopic WBC 23 H 0-5 /HPF Urine Squamous Epithelial Cells Few <5 /hpf Urine Bacteria Few H None Seen /hpf Urine Mucus Few None Seen Urine Glucose 4+ H Normal mg/dL White Blood Count 9.1 4.4-10.8 10^3/uL Red Blood Count 4.55 4.0-5.20 10^6/uL Hemoglobin 14.1 12.2-16.2 g/dL Hematocrit 40.9 36.0-46.0 % Mean Corpuscular Volume 90.0 80.0-100.0 fL Mean Corpuscular Hemoglobin 31.0 28.0-32.0 pg Mean Corpuscular Hemoglobin Concent 34.4 32.0-36.0 g/dL Red Cell Distribution Width 15.7 H 11.8-14.3 % Platelet Count 243 140-450 10^3/uL Mean Platelet Volume 6.6 L 6.9-10.8 fL Neutrophils (%) (Auto) 87.7 H 37.0-80.0 % Lymphocytes (%) (Auto) 5.8 L 10.0-50.0 % Monocytes (%) (Auto) 6.1 0.0-12.0 % Eosinophils (%) (Auto) 0.2 0.0-7.0 % Basophils (%) (Auto) 0.2 0.0-2.0 % Neutrophils # (Auto) 7.9 1.6-8.6 10 ^3/uL Lymphocytes # (Auto) 0.5 0.4-5.4 10 ^3/uL Monocytes # (Auto) 0.6 0-1.3 10 ^3/uL Eosinophils # (Auto) 0 0-0.8 10 ^3/uL Basophils # (Auto) 0 0-0.2 10 ^3/uL Nucleated Red Blood Cells 0.0 % Sodium Level 137 136-145 mmol/L Potassium Level 3.8 3.5-5.1 mmol/L Chloride Level 104 98-107 mmol/L Carbon Dioxide Level 24 20-31 mmol/L Anion Gap 9 5-15 Blood Urea Nitrogen 17 9-23 mg/dL Creatinine 0.73 0.550-1.02 mg/dL Glomerular Filtration Rate Calc 90 >90 mL/min BUN/Creatinine Ratio 23.3 H 10.0-20.0 Serum Glucose 246 H 74-106 mg/dL Calcium Level 10.0 8.7-10.4 mg/dL SEPSIS Sepsis Screen Date sepsis recognized/suspect: Nov 23, 2024 Time Sepsis recognized/suspect: 1229 Recent Procedure: No On Antibiotic Therapy: No Respiratory Rate >20: No Heart Rate >90: Yes Temp<36 C (96.8 F) or >38.3 C: No SBP <90 or MAP <65 mmHG: No New Acute Mental Status Change: No Is the patient on CPAP, BIPAP,: No Physician Orders Admit (11/23/24 19:14) Metoprolol Tartrate Tablet (Lopressor Ta (11/23/24 22:00) Furosemide Tablet (Lasix Tablet) (11/24/24 10:00) Atorvastatin (Lipitor) (11/23/24 22:00) Pantoprazole Tablet (Protonix Tablet) (11/24/24 06:00) Ceftriaxone 1gm/50ml D5w (Rocephin) (11/24/24 09:00) Urine Bacterial Culture (11/23/24 19:16) Basic Metabolic Panel (11/24/24 04:00) Glucose Blood (Accu-Chek Comfort Curve T (11/23/24 22:00) Insulin R (Human) (Insulin R) (11/23/24 22:00) Dextrose 50% Syringe (11/23/24 19:30) Hydrocodone-Acet 5/325mg Tab ([place] 32 (11/23/24 19:30) Temazepam (Restoril) (11/23/24 19:30) Ondansetron Hcl (Zofran) (11/23/24 19:30) Complete Blood Count (11/24/24 04:00) Cardiac Diet-2gna,Lofat,Lochol (11/24/24 Breakfast) Condition: Stable (11/23/24 19:16) Acetaminophen Tablet (Tylenol Tablet) (11/23/24 19:30) Bedrest With Bathroom Privileg (11/23/24 19:16) Vital Signs Date Time Temp Pulse Resp B/P (MAP) Pulse Ox O2 Delivery O2 Flow Rate FiO2 11/23/24 21:02 98.8 116 15 143/83 (103) 93 98.8 11/23/24 18:32 95 20 119/68 (85) 97 11/23/24 16:09 99 11/23/24 15:31 107 20 97 Room Air 11/23/24 15:31 98.5 107 20 105/95 (98) 97 98.5 Laboratory Tests Test 11/23/24 12:38 White Blood Count 9.1 10^3/uL (4.4-10.8) Medications Medications Dose Ordered Sig/Kerry Route Start Time Stop Time Status Last Admin Dose Admin Levofloxacin/ Dextrose 100 ml @ 100 mls/hr ONCE ONCE IV 11/23/24 17:15 11/23/24 18:14 DC 11/23/24 17:34 100 MLS/HR Sodium Chloride 500 ml @ 500 mls/hr Q1H ONCE IV 11/23/24 12:30 11/23/24 13:32 DC 11/23/24 15:30 500 MLS/HR Assessment/Plan Assessment/Plan Assessment Complicated UTI Generalized weakness Breast cancer Diabetes mellitus Obesity Plan Admit the [facility] to [facility] to the hospitalist Oseas Resume home medications Continue treatment per orders. Plan discussed with: Patient My Orders Orders - SEEMA POST Procedure Category Date Status Time Admit ADMIT 11/23/24 Transmitted 19:14 Metoprolol Tartrate PHA 11/23/24 In Process Tablet (Lopressor Ta 22:00 Furosemide Tablet PHA 11/24/24 In Process (Lasix Tablet) 10:00 Atorvastatin (Lipitor) PHA 11/23/24 In Process 22:00 Pantoprazole Tablet PHA 11/24/24 In Process (Protonix Tablet) 06:00 Ceftriaxone 1gm/50ml PHA 11/24/24 In Process D5w (Rocephin) 09:00 Urine Bacterial RHIANNA 11/23/24 In Process Culture 19:16 Basic Metabolic Panel LAB 11/24/24 Verified 04:00 Glucose Blood PHA 11/23/24 In Process (Accu-Chek Comfort 22:00 Insulin R (Human) PHA 11/23/24 In Process (Insulin R) 22:00 Dextrose 50% Syringe PHA 11/23/24 In Process 19:30 Hydrocodone-Acet PHA 11/23/24 In Process 5/325mg Tab ([place] 19:30 Temazepam (Restoril) PHA 11/23/24 In Process 19:30 Ondansetron Hcl PHA 11/23/24 In Process (Zofran) 19:30 Complete Blood Count LAB 11/24/24 Verified 04:00 Cardiac DIET 11/24/24 Transmitted Diet-2gna,Lofat,Lochol Breakfast Condition: Stable ASHLEY 11/23/24 In Process 19:16 Acetaminophen Tablet PHA 11/23/24 In Process (Tylenol Tablet) 19:30 Bedrest With Bathroom ASHLEY 11/23/24 In Process Privileg 19:16 Date of Service: Nov 23, 2024 Billing Provider: SEEMA POST Common Visit Codes: [id number] INP/OBS CARE (MOD) SEEMA POST Nov 23, 2024 21:22
[2024-11-23] MEDS: InsuLIN REG 1unit/0.01ml Soln (100units/ml) SC SCH (22:00)
[2024-11-23] MEDS: ACCU-CHEK COMFORT CURVE STRIP VI SCH (23:19)
[2024-11-23] MEDS: METOPROLOL TARTRATE 25 MG TAB PO SCH (23:19)
[2024-11-23] MEDS: ATORVASTATIN 20 MG TAB PO SCH (23:19)
[2024-11-24 05:19] LABS: Hematocrit 42.1 % (36.0-46.0); Hemoglobin 14.2 g/dL (12.2-16.2); Mean Corpuscular Hemoglobin 30.7 pg (28.0-32.0); Mean Corpuscular Volume 90.6 fL (80.0-100.0); Nucleated Red Blood Cells % 0.1 %
[2024-11-24 05:29] LABS: Anion Gap 11 (5-15); Carbon Dioxide 22 mmol/L (20-31); Chloride 106 mmol/L (98-107); Potassium 3.7 mmol/L (3.5-5.1); Sodium 139 mmol/L (136-145)
[2024-11-24 05:30] LABS: Calcium 9.5 mg/dL (8.7-10.4)
[2024-11-24 05:35] LABS: BUN/Creatinine Ratio 28.8 (10.0-20.0); Blood Urea Nitrogen 17 mg/dL (9-23)
[2024-11-24 05:37] LABS: Glucose 191 mg/dL (74-106)
[2024-11-24 07:30] VITALS: PULSE 106; RESP 13; O2SAT 93
[2024-11-24] MEDS: PANTOPRAZOLE 40 MG TAB PO SCH (08:49)
[2024-11-24] MEDS: cefTRIAXone 1GM/50ML D5W 50 ML IV SCH (08:51)
[2024-11-24] MEDS: FUROSEMIDE 20 MG TAB PO SCH (10:41)
--- NOTE | 2024-11-24 13:26 | DVHPN2 ---
Subjective symnptoms improving Reviewed: H&P Changes from previous H/P or p: No Changes General: Per HPI Objective Vitals Vital Signs Date Time Temp Pulse Resp B/P (MAP) Pulse Ox O2 Delivery O2 Flow Rate FiO2 11/24/24 12:30 97 14 140/69 (92) 94 11/24/24 07:30 97.9 97.9 11/24/24 07:30 Room Air* 0 21 Intake/Output Intake and Output 11/24/24 06:59 Intake Total 600 ml Balance 600 ml Intake IV Total 600 ml Exam GEN: Healthy appearing, well-developed, NAD. HEENT: NC/AT; MMM. CV: RRR, no m/r/g. LUNGS: CTAB, no w/r/c. ABD: Soft, NT/ND, NBS, no masses or organomegaly. EXT: skin Warm, well perfused. no rashes. No clubbing, cyanosis, or edema. NEURO: Ambulating with no limitations. No focal deficits. Medications Current Medications Medications Dose Ordered Sig/Kerry Route Start Time Stop Time Status Last Admin Dose Admin Metoprolol Tartrate 25 mg BID PO 11/23/24 22:00 11/24/24 10:41 25 MG Furosemide 20 mg DAILY PO 11/24/24 10:00 11/24/24 10:41 20 MG Atorvastatin Calcium 40 mg HS PO 11/23/24 22:00 11/23/24 23:19 40 MG Pantoprazole Sodium 40 mg DAILY@0600 PO 11/24/24 06:00 11/24/24 08:49 40 MG Ceftriaxone Sodium 50 ml @ 100 mls/hr DAILY@09 IV 11/24/24 09:00 11/24/24 08:51 100 MLS/HR Diagnostic Test (Pha) 1 strip ACHS 11/23/24 22:00 11/24/24 12:15 1 STRIP Insulin Human Regular ACHS SC 11/23/24 22:00 11/24/24 12:18 3 UNITS Dextrose 50 ml UD PRN IV 11/23/24 19:30 Acetaminophen/ Hydrocodone Bitart 1 tab Q4HP PRN PO 11/23/24 19:30 Temazepam 15 mg QHSP PRN PO 11/23/24 19:30 Ondansetron HCl 4 mg Q4HP PRN IV 11/23/24 19:30 Acetaminophen 650 mg Q6HP PRN PO 11/23/24 19:30 Laboratory Results Laboratory Tests 11/24/24 04:53 Chemistry Test 11/24/24 04:53 Calcium Level 9.5 mg/dL (8.7-10.4) Urinalysis Test 11/23/24 15:26 Urine Color Colorless (Yellow) Urine Clarity Clear (Clear) Urine pH 6.0 (5.0-9.0) Urine Specific [place] 1.035 (1.001-1.035) Urine Protein Negative (Negative) Urine Ketones Negative (Negative) Urine Blood Negative /uL (Negative) Urine Nitrite 2+ (Negative) H Urine Bilirubin Negative (Negative) Urine Urobilinogen Normal mg/dL (Negative) Urine Leukocyte Esterase 1+ /uL (Negative) Urine RBC 3 /hpf (0 - 4) Urine Microscopic WBC 23 /HPF (0-5) H Urine Squamous Epithelial Cells Few /hpf (<5) Urine Bacteria Few /hpf (None Seen) H Urine Mucus Few (None Seen) Urine Glucose 4+ mg/dL (Normal) H Microbiology Microbiology Date/Time Source Procedure Growth Status 11/23/24 15:26 Voided Urine Urine Culture - Preliminary Resulted Labs and/or images reviewed: Labs reviewed by me, Image(s) reviewed by me Assessment/Plan Assessment/Plan History of Present Illness 69-year-old female presents for evaluation of generalized weakness. Patient reports a two day history of generalized weakness with associated dysuria, nausea and smelly urine. Patient has a history of breast cancer currently undergoing chemotherapy. No fever or chills. No abdominal pain. Past Medical History Cancer, CAD, CHF, COPD, depression, diabetes mellitus, dyslipidemia, hypertension 11/24 - doing well. ssx improving. UA concern for UTI. tachycardia, neutropenia. on iv abx for complicated uti and will get ucx. otherwise CPT. She appears weak may need PT eval. We will get bladder ultrasound make sure no urinary retention. Acute complicated cystitis Tachycardia Neutropenia History of Cancer, CAD, CHF, COPD, depression, diabetes mellitus, dyslipidemia, hypertension -continue p.r.n. pain control Tylenol, Victoria, morphine plan answered continue IV antibiotics ceftriaxone -continue home meds furosemide 20, metoprolol 25 b.i.d., Protonix 40 daily, -a.c. HS mild sliding scale insulin. Diet cardiac GI prophylaxis-Protonix DVT prophylaxis-ambulating Med surge Full code Plan discussed with: Patient Date of Service: Nov 24, 2024 Billing Provider: CELINA ROB MD Common Visit Codes: [id number] INP/OBS CARE(HIGH) CELINA ROB MD Nov 24, 2024 13:25
[2024-11-24 19:00] VITALS: PULSE 95; RESP 15; O2SAT 94
[2024-11-24 20:00] VITALS: PULSE 110; RESP 16; O2SAT 95
[2024-11-24 21:00] VITALS: BP 134/86; PULSE 113; RESP 18; TEMP 97.9; O2SAT 98
[2024-11-25] VITALS (9 sets, daily range): BP systolic 121–158; BP diastolic 69–101; PULSE 91–116; RESP 14–20; TEMP 97.6–98.4; O2SAT 95–100
[2024-11-25] MEDS: HYDROcodone-ACET 5/325MG TAB PO PRN (04:37)
[2024-11-25 07:48] LABS: Hematocrit 45.4 % (36.0-46.0); Hemoglobin 15.8 g/dL (12.2-16.2); Mean Corpuscular Hemoglobin 31.1 pg (28.0-32.0); Mean Corpuscular Volume 89.4 fL (80.0-100.0); Nucleated Red Blood Cells % 0.1 %
[2024-11-25 08:00] LABS: Alanine Aminotransferase 25 U/L (7-40); Albumin 4.7 g/dL (3.2-4.8); Anion Gap 15 (5-15); BUN/Creatinine Ratio 33.9 (10.0-20.0); Blood Urea Nitrogen 19 mg/dL (9-23); Calcium 10.2 mg/dL (8.7-10.4); Carbon Dioxide 22 mmol/L (20-31); Chloride 104 mmol/L (98-107); Potassium 3.5 mmol/L (3.5-5.1); Sodium 141 mmol/L (136-145); Total Protein 8.0 g/dL (5.7-8.2)
[2024-11-25 08:01] LABS: Bilirubin, Total 0.6 mg/dL (0.2-1.0)
[2024-11-25 08:04] LABS: Alkaline Phosphatase 123 U/L (46-116); Glucose 172 mg/dL (74-106)
--- NOTE | 2024-11-25 14:35 | DVHPN2 ---
Subjective symnptoms improving Reviewed: H&P Changes from previous H/P or p: No Changes General: Per HPI Objective Vitals Vital Signs Date Time Temp Pulse Resp B/P (MAP) Pulse Ox O2 Delivery O2 Flow Rate FiO2 11/25/24 10:51 91 126/81 11/25/24 09:09 97.6 17 100 97.6 11/25/24 08:00 Room Air* 0 21 Intake/Output Intake and Output 11/25/24 07:00 Intake Total 450 ml Balance 450 ml Intake Oral 450 ml # Voids 1 # Bowel Movements 1 Exam GEN: Healthy appearing, well-developed, NAD. HEENT: NC/AT; MMM. CV: RRR, no m/r/g. LUNGS: CTAB, no w/r/c. ABD: Soft, NT/ND, NBS, no masses or organomegaly. EXT: skin Warm, well perfused. no rashes. No clubbing, cyanosis, or edema. NEURO: Ambulating with no limitations. No focal deficits. Medications Current Medications Medications Dose Ordered Sig/Kerry Route Start Time Stop Time Status Last Admin Dose Admin Metoprolol Tartrate 25 mg BID PO 11/23/24 22:00 11/25/24 09:51 25 MG Furosemide 20 mg DAILY PO 11/24/24 10:00 11/25/24 09:52 20 MG Atorvastatin Calcium 40 mg HS PO 11/23/24 22:00 11/24/24 21:55 40 MG Pantoprazole Sodium 40 mg DAILY@0600 PO 11/24/24 06:00 11/25/24 06:09 40 MG Ceftriaxone Sodium 50 ml @ 100 mls/hr DAILY@09 IV 11/24/24 09:00 11/25/24 09:51 100 MLS/HR Diagnostic Test (Pha) 1 strip ACHS 11/23/24 22:00 11/25/24 06:09 1 STRIP Insulin Human Regular ACHS SC 11/23/24 22:00 11/25/24 11:59 3 UNITS Dextrose 50 ml UD PRN IV 11/23/24 19:30 Acetaminophen/ Hydrocodone Bitart 1 tab Q4HP PRN PO 11/23/24 19:30 11/25/24 04:37 1 TAB Temazepam 15 mg QHSP PRN PO 11/23/24 19:30 Ondansetron HCl 4 mg Q4HP PRN IV 11/23/24 19:30 Acetaminophen 650 mg Q6HP PRN PO 11/23/24 19:30 Laboratory Results Laboratory Tests 11/25/24 06:44 Chemistry Test 11/25/24 06:44 Albumin 4.7 g/dL (3.2-4.8) Calcium Level 10.2 mg/dL (8.7-10.4) Total Protein 8.0 g/dL (5.7-8.2) LFT Test 11/25/24 06:44 Alanine Aminotransferase (ALT) 25 U/L (7-40) Alkaline Phosphatase 123 U/L (46-116) H Aspartate Amino Transferase (AST) 44 U/L (13-40) H Total Bilirubin 0.6 mg/dL (0.2-1.0) Urinalysis Test 11/23/24 15:26 Urine Color Colorless (Yellow) Urine Clarity Clear (Clear) Urine pH 6.0 (5.0-9.0) Urine Specific [place] 1.035 (1.001-1.035) Urine Protein Negative (Negative) Urine Ketones Negative (Negative) Urine Blood Negative /uL (Negative) Urine Nitrite 2+ (Negative) H Urine Bilirubin Negative (Negative) Urine Urobilinogen Normal mg/dL (Negative) Urine Leukocyte Esterase 1+ /uL (Negative) Urine RBC 3 /hpf (0 - 4) Urine Microscopic WBC 23 /HPF (0-5) H Urine Squamous Epithelial Cells Few /hpf (<5) Urine Bacteria Few /hpf (None Seen) H Urine Mucus Few (None Seen) Urine Glucose 4+ mg/dL (Normal) H Microbiology Microbiology Date/Time Source Procedure Growth Status 11/23/24 15:26 Voided Urine Urine Culture - Final Escherichia coli - ESBL Complete Labs and/or images reviewed: Labs reviewed by me, Image(s) reviewed by me Assessment/Plan Assessment/Plan History of Present Illness 69-year-old female presents for evaluation of generalized weakness. Patient reports a two day history of generalized weakness with associated dysuria, nausea and smelly urine. Patient has a history of breast cancer currently undergoing chemotherapy. No fever or chills. No abdominal pain. Past Medical History Cancer, CAD, CHF, COPD, depression, diabetes mellitus, dyslipidemia, hypertension 11/24 - doing well. ssx improving. UA concern for UTI. tachycardia, neutropenia. on iv abx for complicated uti and will get ucx. otherwise CPT. She appears weak may need PT eval. We will get bladder ultrasound make sure no urinary retention. 11/25: Urine culture today is growing ESBL sensitive to carbapenems. Neutrophilia continues. Remains tachycardic, we will get blood cultures since patient remains tachycardic.. Patient will likely need IV antibiotics we will discuss with social. Also waiting for PT eval today. Patient says that she ambulates at home, waiting for PT note. She has not urinated we will give her 500 cc of LR and scan with bladder scan. Social consult started for 1 g ertapenem daily for 10 days. Plan for end date 12/06/2024. IV midline can be inserted tomorrow. Patient wants to go home for IV antibiotics. Diagnosis: Acute complicated cystitis Tachycardia Neutropenia History of Cancer, CAD, CHF, COPD, depression, diabetes mellitus, dyslipidemia, hypertension -continue p.r.n. pain control Tylenol, Colstrip, morphine plan answered continue IV antibiotics ceftriaxone -continue home meds furosemide 20, metoprolol 25 b.i.d., Protonix 40 daily, -a.c. HS mild sliding scale insulin. Diet cardiac GI prophylaxis-Protonix DVT prophylaxis-ambulating Med surge Full code Plan discussed with: Patient My Orders Orders - CELINA ROB MD Procedure Category Date Status Time Bladder Scan ORDERS 11/24/24 Transmitted 16:49 Pt Request For Service PT 11/24/24 Logged 16:49 Date of Service: Nov 25, 2024 Billing Provider: CELINA ROB MD Common Visit Codes: [id number] INP/OBS CARE(HIGH) CELINA ROB MD Nov 25, 2024 14:35
[2024-11-25] MEDS: ERTAPENEM SOD INJ 1 GM in SODIUM CHL 0.9% 50 ML IV SCH (17:00)
[2024-11-25] MEDS: LACTATED RINGER'S 500 ML IV ONE (17:00)
[2024-11-25] MEDS: BACLOFEN 10 MG TAB PO SCH (22:57)
[2024-11-26 01:00] VITALS: BP 144/77; PULSE 96; RESP 18; TEMP 98.2; O2SAT 96
[2024-11-26 05:00] VITALS: BP 139/77; PULSE 105; RESP 14; TEMP 98.4; O2SAT 97
[2024-11-26 05:48] LABS: Hematocrit 45.0 % (36.0-46.0); Hemoglobin 15.5 g/dL (12.2-16.2); Mean Corpuscular Hemoglobin 30.8 pg (28.0-32.0); Mean Corpuscular Volume 89.4 fL (80.0-100.0); Nucleated Red Blood Cells % 0.1 %
[2024-11-26 09:00] VITALS: BP 148/80; PULSE 104; RESP 18; TEMP 97.8; O2SAT 97
--- NOTE | 2024-11-26 10:33 | DVHDS2 ---
Discharge Summary Date of Admission Nov 23, 2024 at 19:15 Date of Discharge: Nov 26, 2024 Labs/Diagnostic Data: Laboratory Results Test 11/26/24 05:12 11/26/24 05:00 11/25/24 06:44 11/23/24 15:26 POC Glucose 184 mg/dl (70-106) White Blood Count 7.9 10^3/uL (4.4-10.8) Red Blood Count 5.03 10^6/uL (4.0-5.20) Hemoglobin 15.5 g/dL (12.2-16.2) Hematocrit 45.0 % (36.0-46.0) Mean Corpuscular Volume 89.4 fL (80.0-100.0) Mean Corpuscular Hemoglobin 30.8 pg (28.0-32.0) Mean Corpuscular Hemoglobin Concent 34.4 g/dL (32.0-36.0) Red Cell Distribution Width 14.7 % (11.8-14.3) Platelet Count 247 10^3/uL (140-450) Mean Platelet Volume 6.2 fL (6.9-10.8) Neutrophils (%) (Auto) 90.0 % (37.0-80.0) Lymphocytes (%) (Auto) 7.5 % (10.0-50.0) Monocytes (%) (Auto) 1.0 % (0.0-12.0) Eosinophils (%) (Auto) 1.4 % (0.0-7.0) Basophils (%) (Auto) 0.1 % (0.0-2.0) Neutrophils # (Auto) 7.1 10 ^3/uL (1.6-8.6) Lymphocytes # (Auto) 0.6 10 ^3/uL (0.4-5.4) Monocytes # (Auto) 0.1 10 ^3/uL (0-1.3) Eosinophils # (Auto) 0.1 10 ^3/uL (0-0.8) Basophils # (Auto) 0 10 ^3/uL (0-0.2) Nucleated Red Blood Cells 0.1 % Sodium Level 141 mmol/L (136-145) Potassium Level 3.5 mmol/L (3.5-5.1) Chloride Level 104 mmol/L (98-107) Carbon Dioxide Level 22 mmol/L (20-31) Anion Gap 15 (5-15) Blood Urea Nitrogen 19 mg/dL (9-23) Creatinine 0.56 mg/dL (0.550-1.02) Glomerular Filtration Rate Calc 100 mL/min (>90) BUN/Creatinine Ratio 33.9 (10.0-20.0) Serum Glucose 172 mg/dL (74-106) Calcium Level 10.2 mg/dL (8.7-10.4) Total Bilirubin 0.6 mg/dL (0.2-1.0) Aspartate Amino Transferase (AST) 44 U/L (13-40) Alanine Aminotransferase (ALT) 25 U/L (7-40) Alkaline Phosphatase 123 U/L (46-116) Total Protein 8.0 g/dL (5.7-8.2) Albumin 4.7 g/dL (3.2-4.8) Urine Color Colorless (Yellow) Urine Clarity Clear (Clear) Urine pH 6.0 (5.0-9.0) Urine Specific [place] 1.035 (1.001-1.035) Urine Protein Negative (Negative) Urine Ketones Negative (Negative) Urine Blood Negative /uL (Negative) Urine Nitrite 2+ (Negative) Urine Bilirubin Negative (Negative) Urine Urobilinogen Normal mg/dL (Negative) Urine Leukocyte Esterase 1+ /uL (Negative) Urine RBC 3 /hpf (0 - 4) Urine Microscopic WBC 23 /HPF (0-5) Urine Squamous Epithelial Cells Few /hpf (<5) Urine Bacteria Few /hpf (None Seen) Urine Mucus Few (None Seen) Urine Glucose 4+ mg/dL (Normal) Other Laboratory Tests 11/26/24 05:00 11/25/24 06:44 Brief Hx & Hospital Course: History of Present Illness 69-year-old female presents for evaluation of generalized weakness. Patient reports a two day history of generalized weakness with associated dysuria, nausea and smelly urine. Patient has a history of breast cancer currently undergoing chemotherapy. No fever or chills. No abdominal pain. Past Medical History Cancer, CAD, CHF, COPD, depression, diabetes mellitus, dyslipidemia, hypertension 11/24 - doing well. ssx improving. UA concern for UTI. tachycardia, neutropenia. on iv abx for complicated uti and will get ucx. otherwise CPT. She appears weak may need PT eval. We will get bladder ultrasound make sure no urinary retention. 11/25: Urine culture today is growing ESBL sensitive to carbapenems. Neutrophilia continues. Remains tachycardic, we will get blood cultures since patient remains tachycardic.. Patient will likely need IV antibiotics we will discuss with social. Also waiting for PT eval today. Patient says that she ambulates at home, waiting for PT note. She has not urinated we will give her 500 cc of LR and scan with bladder scan. Social consult started for 1 g ertapenem daily for 10 days. Plan for end date 12/06/2024. IV midline can be inserted tomorrow. Patient wants to go home for IV antibiotics. 11/26: patient continues to feel good, ambulating with help, bladder scan done PVR is approximately 0 urinating well. Patient can receive IV antibiotics at home. Blood cultures have not returned but she is afebrile, PCP to follow up with blood cultures. PT did eval yesterday and they recommend home PT. Vital signs stable stable for discharge today as per plan below. Diagnosis: Acute complicated cystitis, ESBL, E coli Tachycardia Neutropenia History of Cancer, CAD, CHF, COPD, depression, diabetes mellitus, dyslipidemia, hypertension discharge plan: - Patient will complete IV antibiotics through midline at home. Home health to help patient infuse IV antibiotics. IV antibiotic is ertapenem 1 g daily for 10 days, end date 12/06/2024. - Also need home health for home PT, IV antibiotics, medication management - continue other home medications not mentioned above - Follow up with PCP to review discharge. PCP do review blood culture. Condition at Discharge: Fair Final Diagnosis/Problems List Diagnosis: Acute complicated cystitis, ESBL, E coli Tachycardia Neutropenia History of Cancer, CAD, CHF, COPD, depression, diabetes mellitus, dyslipidemia, hypertension Discharge Disposition: Home with Health Services Discharge Instruct/Medications Diet: Consistent carbohydrate, Cardiac 2g Na,low cholest Diet comment: See below Activity: No Restrictions, As Tolerated Follow Up/Referral: See below Medications: See below Scheduled Albuterol Sulfate (Albuterol Sulfate Hfa), 108 MCG INH UD, (Reported) Alendronate Sodium (Alendronate Sodium), 1 TAB PO QWEEKLY, (Reported) Amitriptyline Hcl (Amitriptyline Hcl), 2 TAB PO QPM, (Reported) Atorvastatin Calcium (Atorvastatin Calcium), 1 TAB PO DAILY, (Reported) Azithromycin (Azithromycin), 1 TAB PO DAILY Budesonide-Formoterol Fumarate (Breyna 80-4.5 Mcg/Act), 1 AER INH UD, (Reported) Calcium Carbonate-Cholecalcife (Ultra Calcium + Vitamin D 600-10 mg-Mcg), 1 TAB PO DAILY, (Reported) Cholecalciferol (Vitamin D-3), 1 CAP PO DAILY, (Reported) Diphenhydramine Hcl (Banophen), 2 CAP PO HS, (Reported) Enalapril Maleate (Enalapril Maleate), 1 TAB PO DAILY, (Reported) Ertugliflozin l-Pyroglutamic A (Steglatro), 1 TAB PO DAILY, (Reported) Ferrous Sulfate (Ferosul), 1 TAB PO TID, (Reported) Furosemide (Furosemide), 1 TAB PO DAILY, (Reported) Gabapentin (Gabapentin), 1 TAB PO TID, (Reported) Insulin Glargine (Basaglar Kwikpen), 36 UNIT SC QPM, (Reported) Insulin Lispro (Insulin Lispro Kwikpen), 12 UNIT SC TIDAC, (Reported) Lactulose (Lactulose), 30 ML PO DAILY, (Reported) Metformin Hydrochloride (Metformin Hcl), 1 TAB PO BID, (Reported) Metoprolol Tartrate (Metoprolol Tartrate), 1 TAB PO BID, (Reported) Ondansetron HCl (Ondansetron Hydrochloride), 1 TAB PO DAILY, (Reported) Oxycodone HCl (Oxycontin), 1 TAB PO Q12HR, (Reported) Pantoprazole Sodium Sesquihydr (Pantoprazole Sodium Dr), 20 MG PO DAILY, (Reported) Patients Own Medication (Patients Own Medication), 4 TAB PO QPM, (Reported) Potassium Chloride (Potassium Chloride Cr), 1 TAB PO DAILY Semaglutide (Ozempic), 1 MG SC QWEEKLY, (Reported) Sertraline Hcl (Sertraline Hcl), 2 TAB PO QAM, (Reported) Simvastatin (Simvastatin), 1 TAB PO QPM, (Reported) Sucralfate (Carafate), 1 TAB PO BID, (Reported) Scheduled PRN Magnesium Citrate (Magnesium Citrate), 2-4 TAB OR QHSP PRN Oxycodone W/ Acetaminophen (Apap/Oxycodone), 1 TAB PO DAILY PRN for BREAKTHROUGH PAIN, (Reported) Discharge Statement: "Patient was advised to return to the ER or call 911 if any headaches, dizziness, shortness of breath, chest pain, abdominal pain, bleeding, fevers, or worsening of medical condition. Patient was counseled about treatment plan, medications, possible side effects, patientverbalized understanding. All questions were answered to the best of my ability. This discharge took greater then 30 minutes in planning, reviewing documentation, counseling the patient, and discussing with other team members." Date of Service: Nov 26, 2024 Billing Provider: CELINA ROB MD Common Visit Codes: [id number] DISCH DAY >30min CELINA ROB MD Nov 26, 2024 10:33
[2024-11-26 10:51] VITALS: BP 140/70; PULSE 90; TEMP 36.6
[2024-11-26 13:00] VITALS: BP 141/78; PULSE 99; RESP 16; TEMP 98.1; O2SAT 97
[2024-11-26 17:00] VITALS: BP 141/80; PULSE 98; RESP 17; TEMP 98.5; O2SAT 96
== END 2024-11-26 18:13 | disposition home or self-care (01) | DRG 690 ==
LOC: EDBD 12:16 → ER 12:16 → OVERFLOW 19:15 → WEST WING 11-24 17:30 → EAST 11-25 14:52
PROVIDERS: ADMIT Student in an Organized Health Care Education/Training Program; ATTEND Student in an Organized Health Care Education/Training Program
PROC: 05HD33Z Insertion of Infusion Device into Right Cephalic Vein, Percutaneous Approach (ICD-10-PCS; principal; 2024-11-25)
PROC: B54MZZA Ultrasonography of Right Upper Extremity Veins, Guidance (ICD-10-PCS; 2024-11-25)
DX: N30.00 Acute cystitis without hematuria (principal); Z16.12 Extended spectrum beta lactamase (ESBL) resistance; D70.9 Neutropenia, unspecified; I50.9 Heart failure, unspecified; I11.0 Hypertensive heart disease with heart failure; E66.9 Obesity, unspecified; F32.A Depression, unspecified; J44.89 Other specified chronic obstructive pulmonary disease; Z68.37 Body mass index [BMI] 37.0-37.9, adult; E11.9 Type 2 diabetes mellitus without complications; R00.0 Tachycardia, unspecified; I25.10 Atherosclerotic heart disease of native coronary artery without angina pectoris; E78.5 Hyperlipidemia, unspecified; B96.20 Unspecified Escherichia coli [E. coli] as the cause of diseases classified elsewhere; Z95.1 Presence of aortocoronary bypass graft; Z92.21 Personal history of antineoplastic chemotherapy; Z90.710 Acquired absence of both cervix and uterus; Z86.73 Personal history of transient ischemic attack (TIA), and cerebral infarction without residual deficits; Z85.3 Personal history of malignant neoplasm of breast; Z90.49 Acquired absence of other specified parts of digestive tract
CPT/HCPCS: 36415; 80048; 80053; 81001; 82962; 85025; 87040; 87086; 87088; 87186; 93005; 96365; 97163; G0378; J1335; J1815; J1956

== ENCOUNTER 2024-11-30 17:06 | Inpatient (IN) | payer OTHER, MEDICAID ==
[~2024-11-30] VITALS: Ht 157.5 cm; Wt 84.5 kg
--- NOTE | 2024-11-30 17:55 | ED.PDOC ---
History of Present Illness HPI Comments 69-year-old female who comes in with chief complaint of generalized weakness as well as slow to answer questions at this time. The patient was recently released from our hospital with a UTI. The release was approximately two days ago and the patient was placed on IV antibiotics. The patient is also on pain medications which she takes somewhat regularly. He has medications are narcotic in nature. Upon arrival, the patient is answering questions somewhat slowly. She seems somewhat confused. EN route, the patient's Accu-Chek was 118. She states that she did eat this morning without any difficulty. She denies any chest pain, nausea or vomiting. The patient is also currently on chemotherapy for the breast cancer. Chief Complaint: General Weakness Time Seen by MD: 17:07 Primary Care Provider: UNKNOWN Reviewed Notes: Nurses Notes, Regional Vice President Life Sales Notes, Medications, Allergies (No allergies to medications) Allergies: Coded Allergies: NO KNOWN ALLERGIES (Unverified , 06/25/14) Home Meds Active Scripts Azithromycin (Azithromycin) 500 Mg Tab, 1 TAB PO DAILY for 4 Days, #4 TAB Prov:JOSE CRUZ MOORE 04/28/24 Magnesium Citrate (MAGNESIUM CITRATE) 100 Mg Tab, 2-4 TAB OR QHSP PRN, #30 TAB prn constipation Prov:PER WALLACE MD 11/19/23 Potassium Chloride (POTASSIUM CHLORIDE CR) 10 Meq Tb, 1 TAB PO DAILY, #30 TAB 5 Refills Prov:FUNMILAYO ARCEO MD 05/17/23 Reported Medications Sucralfate (CARAFATE) 1 Gm Tab, 1 TAB PO BID for 90 Days, #180 04/26/24 Ferrous Sulfate (Ferosul) 325 Mg Tab, 1 TAB PO TID for 28 Days, #12 04/26/24 Atorvastatin Calcium (ATORVASTATIN CALCIUM) 40 Mg Tab, 1 TAB PO DAILY for 30 Days, #30 04/26/24 Metoprolol Tartrate (Metoprolol Tartrate) 100 Mg Tab, 1 TAB PO BID for 30 Days, #60 04/26/24 Metformin Hydrochloride (Metformin Hcl) 500 Mg Tab, 1 TAB PO BID for 30 Days, #60 04/26/24 Furosemide (Furosemide) 20 Mg Tab, 1 TAB PO DAILY for 90 Days, #90 04/26/24 Alendronate Sodium (Alendronate Sodium) 70 Mg Tab, 1 TAB PO QWEEKLY for 28 Days, #4 04/26/24 Pantoprazole Sodium Sesquihydr (Pantoprazole Sodium Dr) 40 Mg Tab, 20 MG PO DAILY for 90 Days, #90 04/26/24 Patients Own Medication (PATIENTS OWN MEDICATION) ., 4 TAB PO QPM for 90 Days, #360 PTS OWN MED-OBTAIN FROM PT AND SEND TO RX DRUG: PERPHENAZINE 4 MG TABLET FREQ: TAKE 4 TABLETS (16 MG) BY MOUTH EVERY EVENING 11/05/23 Budesonide-Formoterol Fumarate (Breyna 80-4.5 Mcg/Act) 1 Aer Aer, 1 AER INH UD 11/05/23 Albuterol Sulfate (Albuterol Sulfate Hfa) 108 Mcg/Act Aer, 108 MCG INH UD 11/05/23 Insulin Lispro (Insulin Lispro Kwikpen) 100 Unit/Ml Inj, 12 UNIT SC TIDAC for 83 Days, #30 11/05/23 Ondansetron HCl (Ondansetron Hydrochloride) 4 Mg Tab, 1 TAB PO DAILY for 30 Days, #30 11/05/23 Lactulose (Lactulose) 10 Gm/15 Ml Yaz, 30 ML PO DAILY Take 30 mL by mouth once daily for BOWEL MANAGEMENT. May hold if LOOSE STOOLS. 11/05/23 Ertugliflozin l-Pyroglutamic A (Steglatro) 15 Mg Tab, 1 TAB PO DAILY for 90 Days, #90 11/05/23 Semaglutide (Ozempic) 4 Mg/3 Ml Inj, 1 MG SC QWEEKLY for 28 Days, #3 11/05/23 Calcium Carbonate-Cholecalcife (Ultra Calcium + Vitamin D 600-10 mg-Mcg) 1 Tab Tab, 1 TAB PO DAILY 11/05/23 Cholecalciferol (Vitamin D-3) 5,000 Unit Cap, 1 CAP PO DAILY 11/05/23 Oxycodone HCl (Oxycontin) 15 Mg Tab, 1 TAB PO Q12HR for 30 Days, #60 TAKE 1 TABLET BY MOUTH EVERY 12 HOURS AT 7 AM AND AT 7 PM. 11/05/23 Insulin Glargine (Basaglar Kwikpen) 100 Unit/Ml Inj, 36 UNIT SC QPM for 30 Days, #83 11/05/23 Diphenhydramine Hcl (BANOPHEN) 50 Mg Cap, 2 CAP PO HS for 90 Days, #180 11/05/23 Oxycodone W/ Acetaminophen (Apap/Oxycodone) 1 Tab Tab, 1 TAB PO DAILY PRN for BREAKTHROUGH PAIN for 30 Days, #30 [10/325 MG] 11/05/23 Enalapril Maleate (Enalapril Maleate) 5 Mg Tab, 1 TAB PO DAILY 05/15/23 Gabapentin (Gabapentin) 600 Mg Tab, 1 TAB PO TID 05/08/23 Simvastatin (Simvastatin) 40 Mg Tab, 1 TAB PO QPM for 90 Days, #90 06/25/14 Sertraline Hcl (Sertraline Hcl) 100 Mg Tab, 2 TAB PO QAM for 30 Days, #60 06/25/14 Amitriptyline Hcl (Amitriptyline Hcl) 100 Mg Tab, 2 TAB PO QPM for 90 Days, #180 06/25/14 Information Source: Patient, Emergency Med Personnel Mode of Arrival: EMS Severity: Moderate Timing: Days Duration: Since onset Prehospital treatment: 12 Lead EKG, Accucheck (118), Natural Gas Engineer, IVF Associated signs and symptoms No associated nausea or vomiting but the patient is having generalized weakness Past Medical History PAST MEDICAL HISTORY: CAD, Cancer (History of breast cancer), CHF, COPD, CVA, Depression, DM, High Lipids, HTN, Schizophrenia, TIA Surgical History: CABG, Cholecystectomy, Hysterectomy, PTCA INFORMATION TECHNOLOGY PROJECT MANAGER History: No Pertinent INFORMATION TECHNOLOGY PROJECT MANAGER History Family History Family History: Reviewed,noncontributory to illness Social History Smoker: Non-Smoker Alcohol: Denies ETOH Use Drugs: Denies Drug Use Lives In: Home Constitutional: reports: weakness; denies: chills, diaphoresis, fatigue, fever, malaise, sweats, others EENTM: denies: blurred vision, double vision, ear bleeding, ear discharge, ear drainage, ear pain, ear ringing, eye pain, eye redness, hearing loss, mouth pain, mouth swelling, nasal discharge, nose bleeding, nose congestion, nose pain, photophobia, tearing, throat pain, throat swelling, voice changes, others Respiratory: denies: cough, hemoptysis, orthopnea, SOB at rest, shortness of breath, SOB with excertion, stridor, wheezing, others Cardiovascular: denies: chest pain, dizzy spells, diaphoresis, Dyspnea on exertion, edema, irregular heart beat, left arm pain, lightheadedness, palpitations, PND, syncope, others Gastrointestinal: denies: abdomen distended, abdominal pain, blood streaked bowels, constipated, diarrhea, dysphagia, difficulty swallowing, hematemesis, melena, nausea, poor appetite, poor fluid intake, rectal bleeding, rectal pain, vomiting, others Genitourinary: denies: abnormal vagina bleeding, burning, dyspareunia, dysuria, flank pain, frequency, hematuria, incontinence, pain, , vagina discharge, urgency, others Neurological: denies: dizziness, fainting, headache, left sided numbness, left sided weakness, numbness, paresthesia, pre-existing deficit, right sided nu mbness, right sided weakness, seizure, speech problems, tingling, tremors, weakness, others Musculoskeletal: denies: back pain, gout, joint pain, joint swelling, muscle pain, muscle stiffness, neck pain, others Integumetry: denies: bruises, change in color, change in hair/nails, dryness, laceration, lesions, lumps, rash, wounds, others Allergic/Immunocompromised: denies: Difficulty Healing, Frequent Infections, Hives, Itching, others Hematologic/Lymphatic: denies: anemia, blood clots, easy bleeding, easy bruising, swollen glands, others Physical Exam General Appearance: Moderate Distress, Obese HEENT: Pale Conjuntivae (L), Pale Conjuntivae (R), Pharynx Normal, TMs Normal Neck: Full Range of Motion, Non-Tender, Normal, Normal Inspection Respiratory: Chest Non-Tender, Lungs Clear, No Accessory Muscle Use, No Respiratory Distress, Normal Breath Sounds Cardiovascular: No Edema, No JVD, No Murmur, No Gallop, Tachycardia Breast Exam: Deferred Gastrointestinal: No Organomegaly, Non Tender, No Pulsatile Mass, Normal Bowel Sounds, Soft Genitalia: Deferred Pelvic: Deferred Rectal: Deferred Extremities: No calf tenderness, Normal capillary refill, Pedal edema Musculoskeletal : Apperance: Normal Neurologic: Alert, supervising floorperson II-XII nml as Tested, No Motor Deficits, Normal Affect, Normal Mood, No Sensory Deficits Cerebellar Function: Normal Reflexes: Normal Skin: Dry, Pallor, Warm Lymphatic: No Adenopathy Was a procedure done? Was a procedure done?: No EKG EKG : Pulse Rate (adult): 111 [place]: Normal Cardiac Rhythm: ST Block: None ST: Nonsp Differential Dx Considerations may include: Generalized weakness, electrolyte imbalance, dehydration X-Ray, Labs, Meds, VS Vital Signs Date Time Temp Pulse Resp B/P (MAP) Pulse Ox O2 Delivery O2 Flow Rate FiO2 11/30/24 17:55 111 11/30/24 17:21 98.2 106 17 120/82 96 98.2 11/30/24 17:20 111 Lab Test 11/30/24 17:58 Range/Units White Blood Count 6.0 4.4-10.8 10^3/uL Red Blood Count 4.83 4.0-5.20 10^6/uL Hemoglobin 14.9 12.2-16.2 g/dL Hematocrit 43.0 36.0-46.0 % Mean Corpuscular Volume 89.0 80.0-100.0 fL Mean Corpuscular Hemoglobin 30.9 28.0-32.0 pg Mean Corpuscular Hemoglobin Concent 34.8 32.0-36.0 g/dL Red Cell Distribution Width 14.6 H 11.8-14.3 % Platelet Count 127 L 140-450 10^3/uL Mean Platelet Volume 6.7 L 6.9-10.8 fL Neutrophils (%) (Auto) 73.3 37.0-80.0 % Lymphocytes (%) (Auto) 17.3 10.0-50.0 % Monocytes (%) (Auto) 8.2 0.0-12.0 % Eosinophils (%) (Auto) 0.9 0.0-7.0 % Basophils (%) (Auto) 0.3 0.0-2.0 % Neutrophils # (Auto) 4.4 1.6-8.6 10 ^3/uL Lymphocytes # (Auto) 1.0 0.4-5.4 10 ^3/uL Monocytes # (Auto) 0.5 0-1.3 10 ^3/uL Eosinophils # (Auto) 0.1 0-0.8 10 ^3/uL Basophils # (Auto) 0 0-0.2 10 ^3/uL Nucleated Red Blood Cells 0.2 % Sodium Level 139 136-145 mmol/L Potassium Level 3.8 3.5-5.1 mmol/L Chloride Level 104 98-107 mmol/L Carbon Dioxide Level 24 20-31 mmol/L Anion Gap 11 5-15 Blood Urea Nitrogen 16 9-23 mg/dL Creatinine 0.70 0.550-1.02 mg/dL Glomerular Filtration Rate Calc 95 >90 mL/min BUN/Creatinine Ratio 22.9 H 10.0-20.0 Serum Glucose 250 H 74-106 mg/dL Lactic Acid Level 1.1 0.4-2.0 mmol/L Calcium Level 9.5 8.7-10.4 mg/dL Technique: Utilizing a multislice CT scanner, a CT scan of the brain was performed without intravenous contrast. IMPRESSION: 1. No acute territorial infarct, intracranial hemorrhage, or mass effect. 2. Age-related involutional changes. Chronic microvascular changes. 3. If clinical symptoms persist, MRI may be beneficial in further evaluation. The patient's CBC is within normal limits The chemistry panel is within normal limits The lactic acid level is pending The urine test pending The patient is being admitted at this time The patient understands and agrees with the management V Hep-Lock was established Images Reviewed?: Images reviewed and evaluated by me Time of 1ST Reevaluation: 17:54 Reevaluation 1ST: Unchanged Patient Education/Counseling: Diagnosis, Treatment, Prognosis Family Education/Counseling: No Family Present SEPSIS Sepsis Screen Date sepsis recognized/suspect: Nov 30, 2024 Time Sepsis recognized/suspect: 1709 Recent Procedure: No On Antibiotic Therapy: No Respiratory Rate >20: No Heart Rate >90: Yes Temp<36 C (96.8 F) or >38.3 C: No SBP <90 or MAP <65 mmHG: No New Acute Mental Status Change: No Is the patient on CPAP, BIPAP,: No Physician Orders Urinalysis (11/30/24 17:23) Heplock Iv (11/30/24 17:23) Natural Gas Engineer (11/30/24 17:23) Blood Pressure (11/30/24 17:23) Pulse Oximetry (11/30/24 17:23) Electrocardigram (11/30/24 17:23) Drug Screen (11/30/24 17:23) Head Without Contrast (11/30/24 17:23) Vital Signs Date Time Temp Pulse Resp B/P (MAP) Pulse Ox O2 Delivery O2 Flow Rate FiO2 11/30/24 17:55 111 11/30/24 17:21 98.2 106 17 120/82 96 98.2 11/30/24 17:20 111 Laboratory Tests Test 11/30/24 17:58 Lactic Acid Level 1.1 mmol/L (0.4-2.0) White Blood Count 6.0 10^3/uL (4.4-10.8) Departure 1 Departure Time of Disposition: 20:49 Impression: Primary Impression: Metabolic encephalopathy Additional Impression: Generalized weakness Disposition: ADMITTED INPATIENT Admit to: Tele Condition: Fair Critical Care Note Critical Care Time?: Yes (45 min-critical care time only) Stability Stability form required: Yes Unstable for transfer: Telemetry monitoring (Telemetry monitoring required), ED Physician Assesment (Clinical assesment) Heart Score Heart Score: Heart Score Response (Comments) Value History Moderate Suspicious 1 EKG Normal 0 Age >65 2 Risk Factors No known risk factors 0 Troponin Normal limit 0 Total 3 I personally scribed for ERON LOVE MD ([email or web address]) on 11/30/24 at 20:01. Electronically submitted by Amy Brooks ([facility]). ERON LOVE MD Nov 30, 2024 17:55
[2024-11-30 18:14] LABS: Hematocrit 43.0 % (36.0-46.0); Hemoglobin 14.9 g/dL (12.2-16.2); Mean Corpuscular Hemoglobin 30.9 pg (28.0-32.0); Mean Corpuscular Volume 89.0 fL (80.0-100.0); Nucleated Red Blood Cells % 0.2 %
[2024-11-30 18:16] LABS: Chloride 104 mmol/L (98-107); Potassium 3.8 mmol/L (3.5-5.1); Sodium 139 mmol/L (136-145)
[2024-11-30 18:17] LABS: Anion Gap 11 (5-15); Carbon Dioxide 24 mmol/L (20-31)
[2024-11-30 18:18] LABS: Calcium 9.5 mg/dL (8.7-10.4)
[2024-11-30 18:23] LABS: BUN/Creatinine Ratio 22.9 (10.0-20.0); Blood Urea Nitrogen 16 mg/dL (9-23); Glucose 250 mg/dL (74-106)
--- NOTE | 2024-11-30 19:28 | DVH ---
Indication: weakness, AMS Comparison: CT STROKE CTH on DOS: 04/23/24, CT HEAD WITHOUT CONTRAST on DOS: 04/02/24, CT HEAD WITHOUT CONTRAST on DOS: 11/11/23, MRI BRAIN HEAD WO CONTRAST on DOS: 11/05/23, CT HEAD WITHOUT CONTRAST on DO S: 11/04/23 Technique: Utilizing a multislice CT scanner, a CT scan of the brain was performed without intravenou s contrast. Coronal and sagittal reformatted images. All CT scans at this facility use dose modulation, iterative reconstruction, and/or weight based dosi ng when appropriate to reduce radiation dose to as low as reasonably achievable. Dose: CTDIvol: 58.99 mGy, DLP: 1162.45 mGy.cm FINDINGS: Evaluation is degraded by motion artifact. No acute territorial infarct, intracranial hemorrhage, or mass effect. There are global involutional changes with compensatory prominence of the ventricles and sulci. Patchy periventricular and subcorti keri white matter hypoattenuation is nonspecific but may be related to small vessel ischemic disease. The orbits are normal. The paranasal sinuses and mastoid air cells are clear. The osseous structures are unremarkable. IMPRESSION: 1. No acute territorial infarct, intracranial hemorrhage, or mass effect. 2. Age-related involutional changes. Chronic microvascular changes. 3. If clinical symptoms persist, MRI may be beneficial in further evaluation.
--- NOTE | 2024-12-01 03:25 | DVHHPRES ---
History of Present Illness Resident Creating Document: EREN CARRILLO RESIDENT History of Present Illness 69-year-old female with past medical history of breast cancer on chemotherapy, CVA, COPD diabetic nephropathy, uncontrolled diabetes mellitus, coronary artery bypass, constipation, NSTEMI presents to the ER with confusion and generalized weakness. The patient was confused and was not able to answer all the questions properly, the patient's were oriented to person only, she does not know how she ended up in the hospital. Based on the ER physician note, the patient was released 2 days back from [facility] with a history of UTI, the patient was confused. Her blood glucose level right now is 250. She denies any chest pain, shortness of breath, abdominal pain, urinary symptoms or any other complaints. Past medical history: Breast cancer, lumbar radiculopathy, chronic low back pain, COPD, uncontrolled diabetes mellitus, CVA in March Past surgical history: Patient could not mention Alcohol: None Smoking: None Drugs: None PCP: Dr. Corrie Sullivan Allergies: None Home medicines: Unknown Code status: Full code Review of Systems Allergies: Coded Allergies: NO KNOWN ALLERGIES (Unverified , 06/25/14) Exam Vital Signs Vital Signs Date Time Temp Pulse Resp B/P (MAP) Pulse Ox O2 Delivery O2 Flow Rate FiO2 11/30/24 17:55 111 11/30/24 17:21 98.2 17 120/82 96 98.2 Exam Pt is lying on bed General Appearance: Oriented X1, Cooperative, Mild distress HEENT: Atraumatic, Mucous membranes moist/pink Respiratory: Clear to auscultation, Normal air movement, No added sounds Cardiovascular: Regular rate, Normal S1, Normal S2, No murmurs Abdominal/ : Active bowel sounds, Soft, no distention, no tenderness Extremities: No edema, Normal pulses, No tenderness/swelling Skin: No Significant rash, except past surgical scars Neuro: Normal speech, sensorimotor deficits none Psych/Mental Status: Mental status NL, Mood NL Nurse was there as environmental services director during examination Labs/Xrays Labs Test 11/30/24 17:58 Range/Units White Blood Count 6.0 4.4-10.8 10^3/uL Red Blood Count 4.83 4.0-5.20 10^6/uL Hemoglobin 14.9 12.2-16.2 g/dL Hematocrit 43.0 36.0-46.0 % Mean Corpuscular Volume 89.0 80.0-100.0 fL Mean Corpuscular Hemoglobin 30.9 28.0-32.0 pg Mean Corpuscular Hemoglobin Concent 34.8 32.0-36.0 g/dL Red Cell Distribution Width 14.6 H 11.8-14.3 % Platelet Count 127 L 140-450 10^3/uL Mean Platelet Volume 6.7 L 6.9-10.8 fL Neutrophils (%) (Auto) 73.3 37.0-80.0 % Lymphocytes (%) (Auto) 17.3 10.0-50.0 % Monocytes (%) (Auto) 8.2 0.0-12.0 % Eosinophils (%) (Auto) 0.9 0.0-7.0 % Basophils (%) (Auto) 0.3 0.0-2.0 % Neutrophils # (Auto) 4.4 1.6-8.6 10 ^3/uL Lymphocytes # (Auto) 1.0 0.4-5.4 10 ^3/uL Monocytes # (Auto) 0.5 0-1.3 10 ^3/uL Eosinophils # (Auto) 0.1 0-0.8 10 ^3/uL Basophils # (Auto) 0 0-0.2 10 ^3/uL Nucleated Red Blood Cells 0.2 % Sodium Level 139 136-145 mmol/L Potassium Level 3.8 3.5-5.1 mmol/L Chloride Level 104 98-107 mmol/L Carbon Dioxide Level 24 20-31 mmol/L Anion Gap 11 5-15 Blood Urea Nitrogen 16 9-23 mg/dL Creatinine 0.70 0.550-1.02 mg/dL Glomerular Filtration Rate Calc 95 >90 mL/min BUN/Creatinine Ratio 22.9 H 10.0-20.0 Serum Glucose 250 H 74-106 mg/dL Lactic Acid Level 1.1 0.4-2.0 mmol/L Calcium Level 9.5 8.7-10.4 mg/dL SEPSIS Sepsis Screen Date sepsis recognized/suspect: Nov 30, 2024 Time Sepsis recognized/suspect: 1709 Recent Procedure: No On Antibiotic Therapy: No Respiratory Rate >20: No Heart Rate >90: Yes Temp<36 C (96.8 F) or >38.3 C: No SBP <90 or MAP <65 mmHG: No New Acute Mental Status Change: No Is the patient on CPAP, BIPAP,: No Laboratory Tests Test 11/30/24 17:58 Lactic Acid Level 1.1 mmol/L (0.4-2.0) White Blood Count 6.0 10^3/uL (4.4-10.8) Assessment/Plan Assessment/Plan #Confusion due to stroke #Delirium due to infection Head CT without contrast: No acute territorial infarct, intracranial hem orrhage, or mass effect.Age-related involutional changes. Chronic microvascular changes.If clinical symptoms persist, MRI may be beneficial in further evaluation. WBC normal Urinalysis and chest x-ray sent #Uncontrolled diabetes Blood glucose 250 Anion gap 11, normal Beta hydroxybutyrate, urine osmolality urinalysis, VBG ordered HbA1c ordered #Generalized weakness Continue further evaluation GI prophylaxis: Pantoprazole DVT prophylaxis: Lovenox Diet: Diabetic Goals of care discussed with the patient for more than 27 minutes: Full code status Case discussed with , patient and RN Plan discussed with: Other (RN) Common Visit Codes: 30945-[id number] INP/OBS CARE (HIGH) Secondary Visit Codes: 60014-[id number] CARE PLAN 30 MINUTES EREN CARRILLO RESIDENT Dec 01, 2024 03:25
[2024-12-01] MEDS ORDERED: DEXTROSE (50%) 50ML SYRG IV PRN (04:45)
[2024-12-01] MEDS: SODIUM CHLORIDE 0.9% 500 ML IV ONE (05:34)
[2024-12-01] MEDS: SODIUM CHLOR 0.9% PF (SALINE LOCK) 10ML VIAL/SYR IV SCH (05:38)
--- NOTE | 2024-12-01 05:58 | DVH ---
XY CHEST TWO VIEWS ROUTINE CLINICAL HISTORY: Confusion COMPARISON: XY CHEST PORTABLE on DOS: 04/23/24 TECHNIQUE: Frontal and lateral view of the chest was obtained FINDINGS: Lines and Tubes: Right infusion catheter is present with its tip terminating in the superior vena cav a. There are clips in the left axilla. Lungs: Left basilar opacity. The right lung is clear. Pleura: No effusion. No pneumothorax. Cardiomediastinal contours: Unremarkable Bones: No acute osseous abnormality. IMPRESSION: 1. Left basilar opacity which may represent atelectasis or pneumonia.
[2024-12-01 05:59] VITALS: PULSE 80; RESP 20; O2SAT 93
[2024-12-01] MEDS: InsuLIN REG 1unit/0.01ml Soln (100units/ml) SC SCH (06:00)
[2024-12-01] MEDS: ACCU-CHEK COMFORT CURVE STRIP VI SCH (06:20)
[2024-12-01 07:50] VITALS: PULSE 112; RESP 19; O2SAT 95
--- NOTE | 2024-12-01 07:53 | DVHPNRES ---
Progress Note Date Seen: Dec 01, 2024 Resident Creating Document: DELILAH QUINN RESIDENT Medical Necessity Reason Pt with a Central, PICC or Fol: No Subjective Review of Systems Elaina Padilla is a 69-year-old female with past medical history of ESBL E coli UTI, breast cancer on chemotherapy, HFpEF, COPD diabetic nephropathy, uncontrolled diabetes mellitus, coronary artery bypass, constipation, NSTEMI presents to the ER with confusion and generalized weakness. She is a poor historian. She was confused and was not able to answer the questions. Reportedly, she is getting treatment at psychiatric care, radiation therapy for breast cancer. Based on the ER physician note, the patient was released 2 days back from [facility] with a history of UTI, the patient was confused. Previous hospitalization: Hospitalization for UTI due to ESBL E coli on 11/23/2024 PSHx: Not available Social history: Lives with daughter Home medication: ? furosemide, sick lateral, ondansetron, albuterol, sertraline, oxycodone, amitriptyline, sucralfate, simvastatin, metoprolol ROS: Constitutional: Confused. HEENT: Neck pain on tender nodules on left side Respiratory: Denies shortness of breath and cough Cardiovascular: Denies chest discomfort or palpitations GI: Denies abdominal pain, nausea, vomiting and diarrhea. : Denies dysuria and urinary frequency. Musculoskeletal: Pain bilateral lower limbs Skin: Erythema due to radiation on left breast Neurological: Denies dizziness, headache, vision or hearing problems She was examined at bedside today. Her vitals are stable. She remains confused Objective vital signs Vital Sign Date Time Temp Pulse Resp B/P (MAP) Pulse Ox O2 Delivery O2 Flow Rate FiO2 12/01/24 05:59 98.0 90 20 127/74 (91) 94 98.0 12/01/24 05:59 Room Air* 0 21 medications Current Medications Medications Dose Ordered Sig/Kerry Route Start Time Stop Time Status Last Admin Dose Admin Sodium Chloride 10 ml Q8HR IV 12/01/24 06:00 12/01/24 05:38 10 ML Ondansetron HCl 4 mg Q4HP PRN IV 12/01/24 03:30 Enoxaparin Sodium 30 mg DAILY SC 12/01/24 10:00 Diagnostic Test (Pha) 1 strip Q6HR 12/01/24 06:00 12/01/24 06:20 1 STRIP Insulin Human Regular Q6HR SC 12/01/24 06:00 12/01/24 06:00 3 UNITS Dextrose 50 ml UD PRN IV 12/01/24 04:45 Pantoprazole Sodium 40 mg DAILY IV 12/01/24 10:00 Examination General: Patient is confused and not oriented in person, place and time. HEENT: Swelling, tenderness of lymph node in the submandibular, anterior chain. Normocephalic, atraumatic, moist mucous membranes Respiratory/pulmonary: Clear lungs bilaterally, vesicular murmurs present in almost all lung julien, no associated crackles or wheezes. Cardiovascular: Normal heart sounds S1 and S2 with no associated murmurs Abdomen: Tenderness on palpation of left flank area Extremities: Lower extremities tender to palpation Peripheral Pulses: 3+ Radial (R). 3+ Radial (L). 3+ Dorsalis pedis (R). 3+ Dorsalis pedis(L) Skin: No rashes or pruritus, there is no sacral edema present at this time. Neurological: Intact cranial nerves with no focal neurologic deficits Other: Erythema of the left breast due to radiation related iatrogenic injury laboratory and microbiology Laboratory Tests 11/30/24 17:58 Test 11/30/24 17:58 Range/Units Serum Glucose 250 H 74-106 mg/dL Problem List/Assessment/Plan Problem List/Assessment/Plan Complicated UTI Left pyelonephritis, possible Hemorrhagic stroke, ruled out Metabolic, Toxic encephalopathy due to above Head CT without contrast: No acute territorial infarct, intracranial hemorrhage, or mass effect.Age-related involutional changes. Chronic microvascular changes.If clinical symptoms persist, MRI may be beneficial in further evaluation. VBG shows PO2 49 Elevated BUN to creatinine ratio CXR revealed: Left basilar opacity which may represent atelectasis or pneumonia. No acute territorial infarct, intracranial hemorrhage, or mass effect. Age- related involutional changes. Chronic microvascular changes. If clinical symptoms persist, MRI may be beneficial in further evaluation. Urine culture ordered Blood culture ordered Continue Zofran Continue ertapenem IV Continue IV fluids Diabetes mellitus Continue sliding scale insulin Thrombocytopenia We will continue monitoring CBC ordered DIET: Liquid DVT PROPHYLAXIS: Lovenox GI PROPHYLAXIS: Protonix CODE STATUS: Goals of care discussed with patient at bedside for more than 35 minutes. Full code DISPOSITION: Med/surge Patient's status and plan discussed with the patient. Case discussed with Dr. Lane. Plan discussed with: Patient, Other (Nursing staff and other) Date of Service: Dec 01, 2024 Billing Provider: OUMOU LANE MD Common Visit Codes: [id number] INP/OBS CARE(HIGH) KAIMEDELILAH RESIDENT Dec 01, 2024 07:[address] MD Dec 05, 2024 20:19
[2024-12-01 08:46] LABS: INR 1.13 (0.9-1.15); Prothrombin Time 11.8 sec (9.3-11.8)
[2024-12-01 09:35] LABS: Anion Gap 12 (5-15); Carbon Dioxide 24 mmol/L (20-31); Chloride 105 mmol/L (98-107); Potassium 4.2 mmol/L (3.5-5.1); Sodium 141 mmol/L (136-145)
[2024-12-01 09:36] LABS: Calcium 10.0 mg/dL (8.7-10.4)
[2024-12-01 09:41] LABS: BUN/Creatinine Ratio 28.1 (10.0-20.0); Blood Urea Nitrogen 16 mg/dL (9-23)
[2024-12-01] MEDS: DOXYCYCLINE 100MG/100ML 100 ML IV SCH (09:41)
[2024-12-01 09:42] LABS: Alanine Aminotransferase 23 U/L (7-40); Albumin 4.3 g/dL (3.2-4.8); Alkaline Phosphatase 110 U/L (46-116); Bilirubin, Direct 0.1 mg/dL (<0.3); Total Protein 7.1 g/dL (5.7-8.2)
[2024-12-01 09:43] LABS: Bilirubin, Total 0.3 mg/dL (0.2-1.0)
[2024-12-01 09:45] LABS: Glucose 158 mg/dL (74-106)
[2024-12-01] MEDS ORDERED: ENOXAPARIN SOD 30 MG/0.3 ML SYRINGE SC SCH (10:00)
[2024-12-01] MEDS: ERTAPENEM SOD INJ 1 GM in SODIUM CHL 0.9% 50 ML IV SCH (11:27)
[2024-12-01] MEDS: PANTOPRAZOLE 40 MG/10 ML VIAL INJ IV SCH (11:27)
[2024-12-01] MEDS: LACTATED RINGER'S 1,000 ML IV SCH (11:30)
[2024-12-01] MEDS: LACTATED RINGER'S 1,000 ML IV ONE (12:40)
[2024-12-01 14:34] LABS: Urine Budding Yeast OCCASIONAL /hpf (None Seen); Urine Protein, UAD Negative (Negative)
[2024-12-01 14:41] LABS: Benzodiazephine Screen, Urine Neg (NEGATIVE)
[2024-12-01 14:42] LABS: Opiate Scree,Urine Neg (NEGATIVE)
[2024-12-01 14:43] LABS: Amphetamine Screen, Urine Neg (NEGATIVE); Barbiturate Scree,Urine Neg (NEGATIVE); Cannabinoid Screen, Urine Neg (NEGATIVE); Cocaine Screen, Urine Neg (NEGATIVE); Phencyclidine Screen, Urine Neg (NEGATIVE)
[2024-12-01] MEDS: INSULIN LISPRO (HUMAN) 100 UNITS/ML ML SC SCH (15:10)
[2024-12-01 16:46] LABS: COVID19 ANTIGEN SOFIA FIA NEGATIVE (NEGATIVE)
[2024-12-01] MEDS: ENOXAPARIN SOD 40 MG/0.4 ML SYRINGE SC ONE (17:04)
[2024-12-01] MEDS ORDERED: ACETAMINOPHEN 325 MG TAB PO PRN (18:00)
[2024-12-02] MEDS: ONDANSETRON HCL 4 MG/2 ML VIAL IV PRN (03:18)
[2024-12-02 06:29] LABS: Alanine Aminotransferase 18 U/L (7-40); Alkaline Phosphatase 111 U/L (46-116); Anion Gap 13 (5-15); BUN/Creatinine Ratio 16.1 (10.0-20.0); Blood Urea Nitrogen 9 mg/dL (9-23); Calcium 9.8 mg/dL (8.7-10.4); Carbon Dioxide 23 mmol/L (20-31); Chloride 102 mmol/L (98-107); Potassium 3.6 mmol/L (3.5-5.1); Sodium 138 mmol/L (136-145); Total Protein 7.5 g/dL (5.7-8.2)
[2024-12-02 06:30] LABS: Albumin 4.5 g/dL (3.2-4.8); Bilirubin, Total 0.4 mg/dL (0.2-1.0)
[2024-12-02 06:31] LABS: Glucose 133 mg/dL (74-106)
[2024-12-02 06:34] LABS: Hematocrit 44.7 % (36.0-46.0); Hemoglobin 15.5 g/dL (12.2-16.2); Mean Corpuscular Hemoglobin 30.6 pg (28.0-32.0); Mean Corpuscular Volume 88.3 fL (80.0-100.0); Nucleated Red Blood Cells % 0.2 %
[2024-12-02 07:30] VITALS: PULSE 120; RESP 12; O2SAT 97
[2024-12-02] MEDS ORDERED: PROCHLORPERAZINE EDISYLATE 5 MG/ML 2ML VIAL IV PRN (08:30)
[2024-12-02] MEDS: ENOXAPARIN SOD 40 MG/0.4 ML SYRINGE SC SCH (11:28)
[2024-12-02 13:00] VITALS: BP 120/85; PULSE 126; RESP 19; TEMP 96.7; O2SAT 96
[2024-12-02 14:30] VITALS: BP 120/85; PULSE 126; RESP 18; TEMP 97.9; O2SAT 96
--- NOTE | 2024-12-02 16:48 | DVHPNRES ---
Progress Note Date Seen: Dec 02, 2024 Resident Creating Document: DELILAH QUINN RESIDENT Medical Necessity Reason Pt with a Central, PICC or Fol: Yes The following are medically ne: Freitas Catheter Subjective Review of Systems Elaina Padilla is a 69-year-old female with past medical history of ESBL E coli UTI, breast cancer on chemotherapy, HFpEF, COPD diabetic nephropathy, uncontrolled diabetes mellitus, coronary artery bypass, constipation, NSTEMI presents to the ER with confusion and generalized weakness. She is a poor historian. She was confused and was not able to answer the questions. Reportedly, she is getting treatment at psychiatric care, radiation therapy for breast cancer. Based on the ER physician note, the patient was released recently from [facility] with a history of UTI, the patient was confused. Previous hospitalization: Hospitalization for UTI due to ESBL E coli on 11/23/2024 PSHx: Not available Social history: Lives with daughter Home medication: ? furosemide, sick lateral, ondansetron, albuterol, sertraline, oxycodone, amitriptyline, sucralfate, simvastatin, metoprolol ROS: Constitutional: Confused. HEENT: Neck pain on tender nodules on left side Respiratory: Denies shortness of breath and cough Cardiovascular: Denies chest discomfort or palpitations GI: Denies abdominal pain, nausea, vomiting and diarrhea. : Denies dysuria and urinary frequency. Musculoskeletal: Pain bilateral lower limbs Skin: Erythema due to radiation on left breast Neurological: Denies dizziness, headache, vision or hearing problems She was examined at bedside today. Her vitals show tachycardia. Her confusion has reduced now, complains of whole body pains. She is vomiting and complains of nausea, unable to put anything down. We will continue monitoring and managing. Objective vital signs Vital Sign Date Time Temp Pulse Resp B/P (MAP) Pulse Ox O2 Delivery O2 Flow Rate FiO2 12/02/24 13:00 96.7 126 19 120/85 (97) 96 96.7 12/02/24 07:30 Nasal Cannula* 2 28 Total Intake and Output 12/01/24 12/01/24 12/02/24 15:00 23:00 07:00 Intake Total 200 ml 800 ml Output Total 2300 ml Balance 200 ml -1500 ml medications Current Medications Medications Dose Ordered Sig/Kerry Route Start Time Stop Time Status Last Admin Dose Admin Sodium Chloride 10 ml Q8HR IV 12/01/24 06:00 12/02/24 13:50 10 ML Ondansetron HCl 4 mg Q4HP PRN IV 12/01/24 03:30 12/02/24 03:18 4 MG Diagnostic Test (Pha) 1 strip Q6HR 12/01/24 06:00 12/02/24 13:29 1 STRIP Dextrose 50 ml UD PRN IV 12/01/24 04:45 Pantoprazole Sodium 40 mg DAILY IV 12/01/24 10:00 12/02/24 11:27 40 MG Ertapenem 1 gm/ Sodium Chloride 50 ml @ 100 mls/hr DAILY IV 12/01/24 10:00 12/02/24 13:29 100 MLS/HR Doxycycline Hyclate 100 ml @ 50 mls/hr Q12H IV 12/01/24 08:15 12/02/24 08:15 50 MLS/HR Insulin Human Lispro Q4HR SC 12/01/24 14:00 12/02/24 05:59 1 UNITS Lactated Ringer's 1,000 ml @ 100 mls/hr Q10H IV 12/01/24 11:30 12/02/24 07:30 100 MLS/HR Enoxaparin Sodium 40 mg DAILY SC 12/02/24 10:00 12/02/24 11:28 40 MG Acetaminophen 650 mg Q6HPRN PRN PO 12/01/24 18:00 Prochlorperazine Edisylate 5 mg Q4HPRN PRN IV 12/02/24 08:30 Tramadol HCl 100 mg Q6HP PRN PO 12/02/24 09:00 UNV Morphine Sulfate 1 mg Q4HP PRN IV 12/02/24 09:00 Examination General: Patient is confused and not oriented in person, place and time. HEENT: Swelling, tenderness of lymph node in the submandibular, anterior chain. Normocephalic, atraumatic, moist mucous membranes Respiratory/pulmonary: Clear lungs bilaterally, vesicular murmurs present in almost all lung julien, no associated crackles or wheezes. Cardiovascular: Normal heart sounds S1 and S2 with no associated murmurs Abdomen: Tenderness on palpation of left flank area Extremities: Lower extremities tender to palpation Peripheral Pulses: 3+ Radial (R). 3+ Radial (L). 3+ Dorsalis pedis (R). 3+ Dorsalis pedis(L) Skin: No rashes or pruritus, there is no sacral edema present at this time. Neurological: Intact cranial nerves with no focal neurologic deficits Other: Erythema of the left breast due to radiation related iatrogenic injury laboratory and microbiology Laboratory Tests 12/02/24 04:29 Test 12/02/24 04:29 Range/Units Serum Glucose 133 H 74-106 mg/dL Microbiology Date/Time Source Procedure Growth Status 12/01/24 13:27 Voided Urine Urine Culture - Preliminary Resulted 12/01/24 09:34 Blood Blood Culture - Preliminary NO GROWTH AFTER 24 HOURS OF INCUBATION. Resulted Problem List/Assessment/Plan Problem List/Assessment/Plan Complicated UTI Left pyelonephritis, possible Hemorrhagic stroke, ruled out Metabolic, Toxic encephalopathy due to above Head CT without contrast: No acute territorial infarct, intracranial hemorrhage, or mass effect.Age-related involutional changes. Chronic microvascular changes.If clinical symptoms persist, MRI may be beneficial in further evaluation. VBG shows PO2 49 Elevated BUN to creatinine ratio CXR revealed: Left basilar opacity which may represent atelectasis or pneumonia. No acute territorial infarct, intracranial hemorrhage, or mass effect. Age- related involutional changes. Chronic microvascular changes. If clinical symptoms persist, MRI may be beneficial in further evaluation. Urine culture ordered Blood culture ordered Continue Zofran Continue ertapenem IV Continue IV fluids Diabetes mellitus Continue sliding scale insulin Thrombocytopenia We will continue monitoring CBC ordered DIET: Liquid DVT PROPHYLAXIS: Lovenox GI PROPHYLAXIS: Protonix CODE STATUS: Goals of care discussed with patient at bedside for more than 35 minutes. Full code DISPOSITION: Med/surge Patient's status and plan discussed with the patient. Case discussed with Dr. Lane. Plan discussed with: Patient (And Others) My Orders My Orders Orders - DELILAH QUINN RESIDENT Procedure Category Date Status Time Mrsa Screen RHIANNA 12/02/24 Uncollected 14:48 Date of Service: Dec 02, 2024 Billing Provider: OUMOU LANE MD Common Visit Codes: [id number] INP/OBS CARE(HIGH) DELILAH QUINN Dec 02, 2024 16:[address] MD Dec 05, 2024 20:39
[2024-12-02 17:25] VITALS: BP 130/99; PULSE 116; RESP 18; TEMP 97.9; O2SAT 95
[2024-12-02] MEDS ORDERED: POTA-36 PO (18:08)
[2024-12-02] MEDS ORDERED: METO25TA5 PO (18:08)
[2024-12-02] MEDS ORDERED: NALO1TAB4 PO (18:08)
[2024-12-02] MEDS ORDERED: POM (18:14)
[2024-12-02 20:00] VITALS: PULSE 109; PULSE 111
[2024-12-02 21:00] VITALS: BP 148/85; PULSE 109; RESP 19; TEMP 98.6; O2SAT 95
[2024-12-03] VITALS (8 sets, daily range): BP systolic 120–144; BP diastolic 76–94; PULSE 107–119; RESP 17–19; TEMP 97.7–98.7; O2SAT 94–97
[2024-12-03] MEDS: MORPHINE SULFATE INJ 2 MG/ml SYRG IV PRN (08:36)
[2024-12-03 12:39] LABS: Hematocrit 42.5 % (36.0-46.0); Hemoglobin 14.6 g/dL (12.2-16.2); Mean Corpuscular Hemoglobin 30.8 pg (28.0-32.0); Mean Corpuscular Volume 89.3 fL (80.0-100.0); Nucleated Red Blood Cells % 0.0 %
[2024-12-03 12:47] LABS: Chloride 101 mmol/L (98-107); Potassium 3.6 mmol/L (3.5-5.1); Sodium 138 mmol/L (136-145)
[2024-12-03 12:48] LABS: Anion Gap 16 (5-15); Carbon Dioxide 21 mmol/L (20-31)
[2024-12-03 12:49] LABS: Calcium 9.4 mg/dL (8.7-10.4)
[2024-12-03 12:54] LABS: BUN/Creatinine Ratio 18.2 (10.0-20.0); Blood Urea Nitrogen 12 mg/dL (9-23)
--- NOTE | 2024-12-03 12:56 | DVHPNRES ---
Progress Note Date Seen: Dec 03, 2024 Resident Creating Document: DELILAH QUINN RESIDENT Medical Necessity Reason Pt with a Central, PICC or Fol: Yes The following are medically ne: Freitas Catheter Subjective Review of Systems Review of Systems Elaina Padilla is a 69-year-old female with past medical history of ESBL E coli UTI, breast cancer on chemotherapy, HFpEF, COPD diabetic nephropathy, uncontrolled diabetes mellitus, coronary artery bypass, constipation, NSTEMI presents to the ER with confusion and generalized weakness. She is a poor historian. She was confused and was not able to answer the questions. Reportedly, she is getting treatment at psychiatric care, radiation therapy for breast cancer. Based on the ER physician note, the patient was released recently from [facility] with a history of UTI, the patient was confused. As confusion reduced, complained of whole body pains. Reported vomiting and nausea, unable to put anything down. Telephonic conversation with health insurance assessor, Suzanne revealed past medical history of COPD, asthma, CHF, triple negative breast cancer with metastasis, reduced hearing. She reported disorientation, confusion, which urged the care provider to bring patient to ER. At home, continuing chemotherapy including Keytruda, carboplatin, Gemzar gemcitabine. She had bad reaction to Taxol. Reportedly Her POA is daughter Rosalinda gold who lives in [place]. The patient lives with care provider in-house. Previous hospitalization: Hospitalization for UTI due to ESBL E coli on 11/23/2024 PSHx: Not available Social history: Lives with daughter Home medication: ? furosemide, sick lateral, ondansetron, albuterol, sertraline, oxycodone, amitriptyline, sucralfate, simvastatin, metoprolol ROS: Constitutional: Confused. HEENT: Neck pain on tender nodules on left side Respiratory: Denies shortness of breath and cough Cardiovascular: Denies chest discomfort or palpitations GI: Denies abdominal pain, nausea, vomiting and diarrhea. : Denies dysuria and urinary frequency. Musculoskeletal: Pain bilateral lower limbs Skin: Erythema due to radiation on left breast Neurological: Denies dizziness, headache, vision or hearing problems She was examined at bedside today. Her vitals show tachycardia. Awaiting urine culture, PT eval, echo ordered. We will continue evaluating and managing. Objective vital signs Vital Sign Date Time Temp Pulse Resp B/P (MAP) Pulse Ox O2 Delivery O2 Flow Rate FiO2 12/03/24 08:58 97.7 119 19 128/76 (93) 97 97.7 12/02/24 20:00 Room Air* 0 21 Total Intake and Output 12/02/24 12/02/24 12/03/24 15:00 23:00 07:00 Intake Total 100 ml Output Total 800 ml 500 ml 400 ml Balance -800 ml -400 ml -400 ml medications Current Medications Medications Dose Ordered Sig/Kerry Route Start Time Stop Time Status Last Admin Dose Admin Sodium Chloride 10 ml Q8HR IV 12/01/24 06:00 12/03/24 06:16 10 ML Ondansetron HCl 4 mg Q4HP PRN IV 12/01/24 03:30 12/02/24 03:18 4 MG Diagnostic Test (Pha) 1 strip Q6HR 12/01/24 06:00 12/03/24 06:16 1 STRIP Dextrose 50 ml UD PRN IV 12/01/24 04:45 Pantoprazole Sodium 40 mg DAILY IV 12/01/24 10:00 12/03/24 12:02 40 MG Ertapenem 1 gm/ Sodium Chloride 50 ml @ 100 mls/hr DAILY IV 12/01/24 10:00 12/03/24 12:02 100 MLS/HR Doxycycline Hyclate 100 ml @ 50 mls/hr Q12H IV 12/01/24 08:15 12/03/24 08:29 50 MLS/HR Insulin Human Lispro Q4HR SC 12/01/24 14:00 12/02/24 05:59 1 UNITS Lactated Ringer's 1,000 ml @ 100 mls/hr Q10H IV 12/01/24 11:30 12/03/24 03:41 100 MLS/HR Enoxaparin Sodium 40 mg DAILY SC 12/02/24 10:00 12/03/24 12:02 40 MG Acetaminophen 650 mg Q6HPRN PRN PO 12/01/24 18:00 Prochlorperazine Edisylate 5 mg Q4HPRN PRN IV 12/02/24 08:30 Tramadol HCl 100 mg Q6HP PRN PO 12/02/24 09:00 Hold Morphine Sulfate 1 mg Q4HP PRN IV 12/02/24 09:00 12/03/24 08:36 1 MG Examination General: Patient is confused and not oriented in person, place and time. Able to recall the place after being told. HEENT: Swelling, tenderness of lymph node in the submandibular, anterior chain. Normocephalic, atraumatic, moist mucous membranes Respiratory/pulmonary: Reduced breath sounds bilaterally, no associated crackles or wheezes. Cardiovascular: Normal heart sounds S1 and S2 with no associated murmurs Abdomen: Tenderness on palpation of left flank area Extremities: Lower extremities tender to palpation Peripheral Pulses: 3+ Radial (R). 3+ Radial (L). 3+ Dorsalis pedis (R). 3+ Dorsalis pedis(L) Skin: No rashes or pruritus, there is no sacral edema present at this time. Neurological: Intact cranial nerves with no focal neurologic deficits Other: Erythema of the left breast due to radiation related iatrogenic injury laboratory and microbiology Laboratory Tests 12/03/24 12:04 Test 12/03/24 12:04 Range/Units Serum Glucose Pending Microbiology Date/Time Source Procedure Growth Status 12/03/24 04:26 Nose MRSA Screen - Final Methicillin Resistant S.aureus Complete 12/01/24 13:27 Voided Urine Urine Culture - Preliminary Resulted 12/01/24 09:34 Blood Blood Culture - Preliminary NO GROWTH AFTER 48 HOURS OF INCUBATION. Resulted Problem List/Assessment/Plan Problem List/Assessment/Plan Complicated UTI Left pyelonephritis, possible Hemorrhagic stroke, ruled out Metabolic, Toxic encephalopathy due to above Head CT without contrast: No acute territorial infarct, intracranial hemorrhage, or mass effect.Age-related involutional changes. Chronic microvascular changes.If clinical symptoms persist, MRI may be beneficial in further evaluation. VBG shows PO2 49 Elevated BUN to creatinine ratio CXR revealed: Left basilar opacity which may represent atelectasis or pneumonia. No acute territorial infarct, intracranial hemorrhage, or mass effect. Age- related involutional changes. Chronic microvascular changes. If clinical symptoms persist, MRI may be beneficial in further evaluation. Blood culture negative Nose culture positive for MRSA Urine culture ordered Continue Zofran Continue ertapenem IV Continue IV fluids Diabetes mellitus Continue sliding scale insulin Thrombocytopenia We will continue monitoring CBC ordered Triple negative breast cancer on Chemotherapy Echo ordered History of COPD History of asthma History of CHF DIET: Clear Liquid DVT PROPHYLAXIS: Lovenox GI PROPHYLAXIS: Protonix CODE STATUS: Goals of care discussed with patient at bedside for more than 25 minutes. Full code DISPOSITION: Med/surge Patient's status and plan discussed with the patient and others. Case discussed with Dr. Lane. Plan discussed with: Patient (nursing staff, other) My Orders My Orders Orders - DELILAH QUINN RESIDENT Procedure Category Date Status Time Mrsa Screen RHIANNA 12/02/24 Uncollected 14:48 Basic Metabolic Panel LAB 12/03/24 In Process 09:27 Clear Liq Diet DIET 12/03/24 Transmitted Lunch Advance Diet As ASHLEY 12/03/24 In Process Tolerated 12:40 Date of Service: Dec 03, 2024 Billing Provider: OUMOU LANE MD Common Visit Codes: [id number] INP/OBS CARE(HIGH) DELILAH QUINN RESIDENT Dec 03, 2024 12:[address] MD Dec 05, 2024 21:03
[2024-12-03 13:00] LABS: Glucose 139 mg/dL (74-106)
[2024-12-03] MEDS ORDERED: VANCOMYCIN PER PHARMACY 0 MG IV SCH (13:00)
--- NOTE | 2024-12-03 15:41 | DVHSR ---
APPROVED REPORT EXAM: Two-dimensional and M-mode echocardiogram with Doppler and color Doppler. Blood Pressure: 128/76 mmHg INDICATION on cancer chemotherapy RISK FACTORS Height: 62, Weight: 189 DIMENSIONS LVDd3.9 (3.8-5.7cm)LA (2D)3.7 (1.9-4.0cm)Aortic Root3.0 (2.0-3.7cm) LVDs2.9 (2.5-4.0cm)LA (MM) (1.9-4.0cm)Aortic Cusp Exc1.8 (1.5-2.0cm) EF (%) 53.0 (55-70%)Rt. Atrium3.3 (1.9-4.0cm)Asc. Aorta cm Mitral Valve MitralMitral Stenosis E wave1.56m/sMV Mean GR.mmHg E/A ratio0.02D MVAcm2 Aortic Valve Aortic ValveAortic Stenosis V11.05m/Lindsey Mean GR.7mmHg V21.70m/Lindsey Peak GR.12mmHg LVOT Diameter1.9 (1.8-2.4cm)Doppler AVA1.75cm2 Pulmonic Valve V21.10m/s Other Information Technically limited study due to body habitus and patient position. Conclusion lvef 60% normal rv function trivial pericardial effusion noted moderate MAC
[2024-12-03] MEDS: VANCOMYCIN 1.5GM/250ML 250 ML IV ONE (16:56)
[2024-12-03] MEDS: LACTATED RINGER'S 500 ML IV ONE (18:15)
[2024-12-03] MEDS: diphenhdrAMINE HCL 50 MG/1 ML VL IV ONE (19:20)
[2024-12-03] MEDS: MUPIROCIN 2% OINT 15gm or 22gm FOR MRSA NARES EACHNOSTRI SCH (22:46)
[2024-12-03] MEDS: AMITRIPTYLINE HCL 25 MG TAB PO SCH (22:47)
[2024-12-04] VITALS (8 sets, daily range): BP systolic 133–159; BP diastolic 70–87; PULSE 103–120; RESP 17–20; TEMP 97.3–98.5; O2SAT 92–97
[2024-12-04] MEDS: DOXYCYCLINE 100MG/100ML 100 ML IV SCH (06:30)
--- NOTE | 2024-12-04 14:04 | DVHPNRES ---
Progress Note Date Seen: Dec 04, 2024 Resident Creating Document: DELILAH QUINN RESIDENT Medical Necessity Reason Pt with a Central, PICC or Fol: Yes The following are medically ne: Freitas Catheter Subjective Review of Systems Elaina Padilla is a 69-year-old female with past medical history of ESBL E coli UTI, breast cancer on chemotherapy, HFpEF, COPD diabetic nephropathy, uncontrolled diabetes mellitus, coronary artery bypass, constipation, NSTEMI presents to the ER with confusion and generalized weakness. She is a poor historian. She was confused and was not able to answer the questions. Reportedly, she is getting treatment at psychiatric care, radiation therapy for breast cancer. Based on the ER physician note, the patient was released recently from [facility] with a history of UTI, the patient was confused. As confusion reduced, complained of whole body pains. Reported vomiting and nausea, unable to put anything down. Telephonic conversation with digital music instructor, Suzanne revealed past medical history of COPD, asthma, CHF, triple negative breast cancer with metastasis, reduced hearing. She reported disorientation, confusion, which urged the care provider to bring patient to ER. At home, continuing chemotherapy including Keytruda, carboplatin, Gemzar gemcitabine. She had bad reaction to Taxol. Reportedly Her POA is daughter Rosalinda gold who lives in [place]. The patient lives with care provider in-house. Previous hospitalization: Hospitalization for UTI due to ESBL E coli on 11/23/2024 PSHx: Not available Social history: Lives with daughter Home medication: ? furosemide, sick lateral, ondansetron, albuterol, sertraline, oxycodone, amitriptyline, sucralfate, simvastatin, metoprolol ROS: Constitutional: Confused. HEENT: Neck pain on tender nodules on left side Respiratory: Denies shortness of breath and cough Cardiovascular: Denies chest discomfort or palpitations GI: Denies abdominal pain, nausea, vomiting and diarrhea. : Denies dysuria and urinary frequency. Musculoskeletal: Pain bilateral lower limbs Skin: Erythema due to radiation on left breast Neurological: Denies dizziness, headache, vision or hearing problems She was examined at bedside today. Her vitals show tachycardia. Awaiting urine culture, PT eval, echo ordered. We will continue evaluating and managing. Objective vital signs Vital Sign Date Time Temp Pulse Resp B/P (MAP) Pulse Ox O2 Delivery O2 Flow Rate FiO2 8/9/25 12:35 97.3 119 19 150/80 (103) 96 97.3 12/03/24 20:00 Room Air* 0 21 Total Intake and Output 12/03/24 12/03/24 12/04/24 15:00 23:00 07:00 Intake Total 300 ml 400 ml Output Total 900 ml 1200 ml Balance -600 ml -800 ml medications Current Medications Medications Dose Ordered Sig/Kerry Route Start Time Stop Time Status Last Admin Dose Admin Sodium Chloride 10 ml Q8HR IV 12/01/24 06:00 12/04/24 06:26 10 ML Ondansetron HCl 4 mg Q4HP PRN IV 12/01/24 03:30 12/02/24 03:18 4 MG Diagnostic Test (Pha) 1 strip Q6HR 12/01/24 06:00 12/04/24 12:21 1 STRIP Dextrose 50 ml UD PRN IV 12/01/24 04:45 Pantoprazole Sodium 40 mg DAILY IV 12/01/24 10:00 12/04/24 10:34 40 MG Ertapenem 1 gm/ Sodium Chloride 50 ml @ 100 mls/hr DAILY IV 12/01/24 10:00 12/04/24 10:00 100 MLS/HR Insulin Human Lispro Q4HR SC 12/01/24 14:00 12/04/24 10:00 1 UNITS Lactated Ringer's 1,000 ml @ 100 mls/hr Q10H IV 12/01/24 11:30 12/04/24 09:30 100 MLS/HR Enoxaparin Sodium 40 mg DAILY SC 12/02/24 10:00 12/04/24 10:34 40 MG Acetaminophen 650 mg Q6HPRN PRN PO 12/01/24 18:00 Prochlorperazine Edisylate 5 mg Q4HPRN PRN IV 12/02/24 08:30 Tramadol HCl 100 mg Q6HP PRN PO 12/02/24 09:00 Hold Morphine Sulfate 1 mg Q4HP PRN IV 12/02/24 09:00 12/03/24 08:36 1 MG Mupirocin 1 applic BID EACHNOSTRI 12/03/24 22:00 12/08/24 21:59 12/04/24 10:00 1 APPLIC Amitriptyline HCl 100 mg HS PO 12/03/24 22:00 12/03/24 22:47 100 MG Doxycycline Hyclate 100 ml @ 50 mls/hr Q12H IV 12/04/24 06:00 12/04/24 06:30 50 MLS/HR Examination General: Patient is confused and not oriented in person, place and time. Able to recall the place after being told. HEENT: Swelling, tenderness of lymph node in the submandibular, anterior chain. Normocephalic, atraumatic, moist mucous membranes Respiratory/pulmonary: Reduced breath sounds bilaterally, no associated crackles or wheezes. Cardiovascular: Normal heart sounds S1 and S2 with no associated murmurs Abdomen: Tenderness on palpation of left flank area Extremities: Lower extremities tender to palpation Peripheral Pulses: 3+ Radial (R). 3+ Radial (L). 3+ Dorsalis pedis (R). 3+ Dorsalis pedis(L) Skin: No rashes or pruritus, there is no sacral edema present at this time. Neurological: Intact cranial nerves with no focal neurologic deficits Other: Erythema of the left breast due to radiation related iatrogenic injury laboratory and microbiology Laboratory Tests 12/03/24 12:04 Test 12/03/24 12:04 Range/Units Serum Glucose 139 H 74-106 mg/dL Microbiology Date/Time Source Procedure Growth Status 12/03/24 04:26 Nose MRSA Screen - Final Methicillin Resistant S.aureus Complete 12/01/24 13:27 Voided Urine Urine Culture - Preliminary Resulted 12/01/24 09:34 Blood Blood Culture - Preliminary NO GROWTH AFTER 72 HOURS OF INCUBATION. Resulted Problem List/Assessment/Plan Problem List/Assessment/Plan Complicated UTI Left pyelonephritis, possible Hemorrhagic stroke, ruled out Metabolic, Toxic encephalopathy due to above Head CT without contrast: No acute territorial infarct, intracranial hemorrhage, or mass effect.Age-related involutional changes. Chronic microvascular changes.If clinical symptoms persist, MRI may be beneficial in further evaluation. VBG shows PO2 49 Elevated BUN to creatinine ratio CXR revealed: Left basilar opacity which may represent atelectasis or pneumonia. No acute territorial infarct, intracranial hemorrhage, or mass effect. Age- related involutional changes. Chronic microvascular changes. If clinical symptoms persist, MRI may be beneficial in further evaluation. Blood culture negative Nose culture positive for MRSA Urine culture ordered- awaiting Continue Zofran Continue IV ertapenem Continue IV docycycline Continue IV fluids Continue home medications for pain management- OxyContin and Percocet Diabetes mellitus Continue sliding scale insulin Thrombocytopenia We will continue monitoring CBC ordered Triple negative breast cancer on Chemotherapy Echo - LVEF 60%, normal LV History of COPD History of asthma History of CHF DIET: Clear Liquid DVT PROPHYLAXIS: Lovenox GI PROPHYLAXIS: Protonix CODE STATUS: Goals of care discussed with patient at bedside for more than 25 minutes. Full code DISPOSITION: Med/surge Patient's status and plan discussed with the patient and others. Case discussed with Dr. Lane. Plan discussed with: Patient (and nursing staff, careprovider) My Orders My Orders Orders - DELILAH QUINN RESIDENT Procedure Category Date Status Time Mechanical Soft Diet DIET 12/03/24 Transmitted Dinner Date of Service: Dec 04, 2024 Billing Provider: OUMOU LANE MD Common Visit Codes: [id number] INP/OBS CARE(HIGH) DELILAH QUINN RESIDENT Dec 04, 2024 14:[address] MD Dec 06, 2024 21:07
[2024-12-04] MEDS ORDERED: OXYCODONE W/ ACETAMINOPHEN 5/325MG TABLET PO SCH ×2 (15:15→15:30)
[2024-12-05] VITALS (8 sets, daily range): BP systolic 138–152; BP diastolic 77–91; PULSE 110–124; RESP 17–21; TEMP 97.8–98.6; O2SAT 94–98
[2024-12-05 08:26] LABS: Chloride 102 mmol/L (98-107); Sodium 141 mmol/L (136-145)
[2024-12-05 08:27] LABS: Anion Gap 13 (5-15); Calcium 9.4 mg/dL (8.7-10.4); Carbon Dioxide 26 mmol/L (20-31)
[2024-12-05 08:32] LABS: BUN/Creatinine Ratio 16.4 (10.0-20.0); Blood Urea Nitrogen 11 mg/dL (9-23)
[2024-12-05 08:34] LABS: Glucose 158 mg/dL (74-106); Potassium 3.1 mmol/L (3.5-5.1)
[2024-12-05] MEDS: POTASSIUM CHLORIDE 40 MEQ, LIDOCAINE 1% (LOCAL ANESTH.) 4 ML in SODIUM CHL 0.9% 250 ML IV ONE (12:24)
--- NOTE | 2024-12-05 15:45 | DVHPNRES ---
Progress Note Date Seen: Dec 05, 2024 Resident Creating Document: KOURTNEY ALCANTARA RESIDENT Medical Necessity Reason Pt with a Central, PICC or Fol: Yes The following are medically ne: Freitas Catheter Subjective Review of Systems Patient seen at bedside. she is still confused. ECHO shows normal ejection fraction . Urine culture reports elsy infection. Objective vital signs Vital Sign Date Time Temp Pulse Resp B/P (MAP) Pulse Ox O2 Delivery O2 Flow Rate FiO2 12/05/24 12:32 116 20 150/78 12/05/24 08:00 98 Room Air* 0 21 12/05/24 04:00 98.2 98.2 Total Intake and Output 12/04/24 12/04/24 12/05/24 15:00 23:00 07:00 Intake Total 550 ml 260 ml Output Total 750 ml 350 ml Balance -200 ml -90 ml medications Current Medications Medications Dose Ordered Sig/Kerry Route Start Time Stop Time Status Last Admin Dose Admin Sodium Chloride 10 ml Q8HR IV 12/01/24 06:00 12/05/24 13:56 10 ML Ondansetron HCl 4 mg Q4HP PRN IV 12/01/24 03:30 12/02/24 03:18 4 MG Diagnostic Test (Pha) 1 strip Q6HR 12/01/24 06:00 12/05/24 12:11 1 STRIP Dextrose 50 ml UD PRN IV 12/01/24 04:45 Pantoprazole Sodium 40 mg DAILY IV 12/01/24 10:00 12/05/24 10:50 40 MG Ertapenem 1 gm/ Sodium Chloride 50 ml @ 100 mls/hr DAILY IV 12/01/24 10:00 12/05/24 10:51 100 MLS/HR Insulin Human Lispro Q4HR SC 12/01/24 14:00 12/05/24 14:27 2 UNITS Lactated Ringer's 1,000 ml @ 100 mls/hr Q10H IV 12/01/24 11:30 12/05/24 10:55 100 MLS/HR Enoxaparin Sodium 40 mg DAILY SC 12/02/24 10:00 12/05/24 10:52 40 MG Prochlorperazine Edisylate 5 mg Q4HPRN PRN IV 12/02/24 08:30 Morphine Sulfate 1 mg Q4HP PRN IV 12/02/24 09:00 12/05/24 12:32 1 MG Mupirocin 1 applic BID EACHNOSTRI 12/03/24 22:00 12/08/24 21:59 12/05/24 10:51 1 APPLIC Amitriptyline HCl 100 mg HS PO 12/03/24 22:00 12/04/24 22:59 100 MG Doxycycline Hyclate 100 ml @ 50 mls/hr Q12H IV 12/04/24 06:00 12/05/24 05:39 50 MLS/HR Oxycodone HCl 15 mg Q12HR PO 12/04/24 15:17 Hold Oxycodone/ Acetaminophen 2 tab Q8H PO 12/04/24 15:30 Hold Examination General: Patient is confused and not oriented in person, place and time. Able to recall the place after being told. HEENT: Swelling, tenderness of lymph node in the submandibular, anterior chain. Normocephalic, atraumatic, moist mucous membranes Respiratory/pulmonary: Reduced breath sounds bilaterally, no associated crackles or wheezes. Cardiovascular: Normal heart sounds S1 and S2 with no associated murmurs Abdomen: Tenderness on palpation of left flank area Extremities: Lower extremities tender to palpation Peripheral Pulses: 3+ Radial (R). 3+ Radial (L). 3+ Dorsalis pedis (R). 3+ Dorsalis pedis(L) Skin: No rashes or pruritus, there is no sacral edema present at this time. Neurological: Intact cranial nerves with no focal neurologic deficits Other: Erythema of the left breast due to radiation related iatrogenic injury laboratory and microbiology Laboratory Tests 12/05/24 07:28 12/03/24 12:04 Test 12/05/24 07:28 Range/Units Serum Glucose 158 H 74-106 mg/dL Microbiology Date/Time Source Procedure Growth Status 12/03/24 04:26 Nose MRSA Screen - Final Methicillin Resistant S.aureus Complete 12/01/24 13:27 Voided Urine Urine Culture - Final Presumptive Elsy albicans Complete 12/01/24 09:34 Blood Blood Culture - Preliminary NO GROWTH AFTER 72 HOURS OF INCUBATION. Resulted Problem List/Assessment/Plan Problem List/Assessment/Plan Complicated UTI Left pyelonephritis, possible Hemorrhagic stroke, ruled out Metabolic, Toxic encephalopathy due to above Urine culture - Elsy Continue Zofran Continue IV ertapenem Continue IV docycycline Continue IV fluids Continue home medications for pain management- OxyContin and Percocet Diabetes mellitus Continue sliding scale insulin Thrombocytopenia We will continue monitoring CBC ordered Triple negative breast cancer on Chemotherapy Echo - LVEF 60%, normal LV History of COPD History of asthma History of CHF DIET: Clear Liquid DVT PROPHYLAXIS: Lovenox GI PROPHYLAXIS: Protonix CODE STATUS: Goals of care discussed with patient at bedside for more than 25 minutes. Full code DISPOSITION: Med/surge Patient's status and plan discussed with the patient and others. Case discussed with Dr. Osorio. Plan discussed with: Patient Dietary Evaluation Review Recommendations by RD: Protein Supplementation Comments: 1) Initiate Ensure High Protein qd 2) Advance to 60g CCHO diet when medically feasible 3) Encourage optimal PO intake 4) Follow-up with oncology and neurology 5) Continue to monitor I&O, labs, and skin integrity Expected Outcomes/Goals: 1) appetite and labs to improve 2) f/u in 3-5 days Date of Service: Dec 05, 2024 Billing Provider: OUMOU OSORIO MD Common Visit Codes: [id number] INP/OBS CARE(HIGH) KOURTNEY ALCANTARA RESIDENT Dec 05, 2024 14:49 OUMOU OSORIO MD Dec 10, 2024 21:38
[2024-12-06] VITALS (9 sets, daily range): BP systolic 129–165; BP diastolic 65–99; PULSE 66–113; RESP 17–20; TEMP 36.6; O2SAT 94–98
[2024-12-06 10:14] LABS: Chloride 104 mmol/L (98-107); Potassium 3.6 mmol/L (3.5-5.1); Sodium 141 mmol/L (136-145)
[2024-12-06 10:15] LABS: Anion Gap 10 (5-15); Calcium 9.2 mg/dL (8.7-10.4); Carbon Dioxide 27 mmol/L (20-31)
[2024-12-06 10:21] LABS: BUN/Creatinine Ratio 23.4 (10.0-20.0); Blood Urea Nitrogen 11 mg/dL (9-23)
[2024-12-06 10:26] LABS: Glucose 150 mg/dL (74-106)
--- NOTE | 2024-12-06 14:28 | ECG ---
[facility] Test Date: 2024-11-30 Test Time: 17:20:11 Pat Name: ELENO SOLIS Department: ER Room: 0208T A Gender: F Supervisor Contingents: TRENA : 1955 Requested By: ERON LOVE Order Number: [id number] Reading MD: Iron Prieto Measurements Intervals [place] Rate: 111 P: 17 ND: 176 QRS: -50 QRSD: 85 T: 133 QT: 419 QTc: 570 Interpretive Statements Sinus tachycardia Abnormal R-wave progression, early transition Inferior infarct, old Consider anterolateral infarct Prolonged QT interval Left axis deviation Electronically Signed On 12-06-2024 17:47:01 PDT by Iron Prieto Please click the below link to view image of tracing.
--- NOTE | 2024-12-06 16:31 | DVHDSRES ---
Discharge Summary Date of Admission Resident Creating Document: DELILAH QUINN RESIDENT Dec 01, 2024 at 03:26 Date of Discharge: Dec 06, 2024 Wounds: No large wounds on discharge Labs/Diagnostic Data: Laboratory Results Test 12/06/24 14:09 12/06/24 09:22 12/03/24 12:04 12/02/24 04:29 POC Glucose 185 mg/dl (70-106) Sodium Level 141 mmol/L (136-145) Potassium Level 3.6 mmol/L (3.5-5.1) Chloride Level 104 mmol/L (98-107) Carbon Dioxide Level 27 mmol/L (20-31) Anion Gap 10 (5-15) Blood Urea Nitrogen 11 mg/dL (9-23) Creatinine 0.47 mg/dL (0.550-1.02) Glomerular Filtration Rate Calc 104 mL/min (>90) BUN/Creatinine Ratio 23.4 (10.0-20.0) Serum Glucose 150 mg/dL (74-106) Calcium Level 9.2 mg/dL (8.7-10.4) White Blood Count 8.6 10^3/uL (4.4-10.8) Red Blood Count 4.76 10^6/uL (4.0-5.20) Hemoglobin 14.6 g/dL (12.2-16.2) Hematocrit 42.5 % (36.0-46.0) Mean Corpuscular Volume 89.3 fL (80.0-100.0) Mean Corpuscular Hemoglobin 30.8 pg (28.0-32.0) Mean Corpuscular Hemoglobin Concent 34.4 g/dL (32.0-36.0) Red Cell Distribution Width 14.9 % (11.8-14.3) Platelet Count 143 10^3/uL (140-450) Mean Platelet Volume 7.1 fL (6.9-10.8) Neutrophils (%) (Auto) 81.4 % (37.0-80.0) Lymphocytes (%) (Auto) 9.5 % (10.0-50.0) Monocytes (%) (Auto) 8.4 % (0.0-12.0) Eosinophils (%) (Auto) 0.6 % (0.0-7.0) Basophils (%) (Auto) 0.1 % (0.0-2.0) Neutrophils # (Auto) 7.0 10 ^3/uL (1.6-8.6) Lymphocytes # (Auto) 0.8 10 ^3/uL (0.4-5.4) Monocytes # (Auto) 0.7 10 ^3/uL (0-1.3) Eosinophils # (Auto) 0 10 ^3/uL (0-0.8) Basophils # (Auto) 0 10 ^3/uL (0-0.2) Nucleated Red Blood Cells 0.0 % Total Bilirubin 0.4 mg/dL (0.2-1.0) Aspartate Amino Transferase (AST) 30 U/L (13-40) Alanine Aminotransferase (ALT) 18 U/L (7-40) Alkaline Phosphatase 111 U/L (46-116) Total Protein 7.5 g/dL (5.7-8.2) Albumin 4.5 g/dL (3.2-4.8) Test 12/01/24 15:15 12/01/24 13:27 12/01/24 05:57 12/01/24 05:53 Influenza Type A Antigen Negative (Negative) Influenza Type B Antigen Negative (Negative) SARS-CoV-2 Antigen (Rapid) Negative (NEGATIVE) Urine Color Light-yellow (Yellow) Urine Clarity Clear (Clear) Urine pH 6.0 (5.0-9.0) Urine Specific [place] 1.025 (1.001-1.035) Urine Protein Negative (Negative) Urine Ketones 1+ (Negative) Urine Blood Negative /uL (Negative) Urine Nitrite Negative (Negative) Urine Bilirubin Negative (Negative) Urine Urobilinogen Normal mg/dL (Negative) Urine Leukocyte Esterase Trace /uL (Negative) Urine RBC 1 /hpf (0 - 4) Urine Microscopic WBC 21 /HPF (0-5) Urine Squamous Epithelial Cells None seen /hpf (<5) Urine Bacteria None seen /hpf (None Seen) Urine Yeast (Budding) Occasional /hpf (None Urine Osmolality 701 mOsm/kg Urine Glucose 4+ mg/dL (Normal) Urine Opiates Screen Neg (NEGATIVE) Urine Fentanyl Screen Neg (NEGATIVE) Urine Barbiturates Screen Neg (NEGATIVE) Urine Phencyclidine Screen Neg (NEGATIVE) Urine Amphetamines Screen Neg (NEGATIVE) Urine Benzodiazepines Screen Neg (NEGATIVE) Urine Cocaine Screen Neg (NEGATIVE) Urine Cannabinoids Screen Neg (NEGATIVE) Direct Bilirubin 0.1 mg/dL (<0.3) Plasma/Serum Blood Alcohol < 3.0 mg/dL (<10) Prothrombin Time 11.8 sec (9.3-11.8) Prothrombin Time INR 1.13 (0.9-1.15) Hemoglobin A1c 7.7 % A1C (<5.7) Lactate Dehydrogenase 187 U/L (120-246) Beta-Hydroxybutyric Acid 2.282 mmol/L (< 0.4) Test 12/01/24 03:36 11/30/24 17:58 Blood Gas Specimen Type Venous Blood Gas Sample Site Vbg - n/a Blood Gas Patient Temperature 37.0 Arterial Blood Date Drawn [id number] Miguelangel Test N/a Venous Blood pH 7.412 (7.320-7.430) Venous Blood pCO2 at Patient Temp 41.5 mmHg (38.0-54.0) Venous Blood pO2 at Patient Temp 49.8 mmHg (23.0-48.0) Venous Blood HCO3 25.8 mmol/L (22.0-29.0) Venous Blood Base Excess 1.1 mmol/L (-2.0-3.0) Blood Gas Modality Room air FiO2 % 21.0 Lactic Acid Level 1.1 mmol/L (0.4-2.0) Other Laboratory Tests 12/06/24 09:22 12/03/24 12:04 Brief Hx & Hospital Course: Brief history Elaina Padilla is a 69-year-old female with past medical history of ESBL E coli UTI, breast cancer on chemotherapy, HFpEF, COPD diabetic nephropathy, uncontrolled diabetes mellitus, coronary artery bypass, constipation, NSTEMI presents to the ER with confusion and generalized weakness. She is a poor historian. She was confused and was not able to answer the questions. Reportedly, she is getting treatment at psychiatric care, radiation therapy for breast cancer. Based on the ER physician note, the patient was released recently from [facility] with a history of UTI, the patient was confused. As confusion reduced, complained of whole body pains. Reported vomiting and nausea, unable to put anything down. Telephonic conversation with manager home healthcare, Suzanne revealed past medical history of COPD, asthma, CHF, triple negative breast cancer with metastasis, reduced hearing. She reported disorientation, confusion, which urged the care provider to bring patient to ER. At home, continuing chemotherapy including Keytruda, carboplatin, Gemzar gemcitabine. She had bad reaction to Taxol. Reportedly Her POA is daughter Rosalinda gold who lives in [place]. The patient lives with care provider in-house. Hospital course She was admitted along the lines of confusion and reduced consciousness due to metabolic encephalopathy. Head CT without contrast: No acute territorial infarct, intracranial hemorrhage. Vitals show tachycardia, tachypnea. Monitor on telemetry. VBG shows PO2 49. Urine and blood culture sent. MRSA positive for nose. She was started on pain management, IV antibiotics and IV fluids. She has history of triple negative breast cancer on chemotherapy, echo obtained revealed LVEF 60%. Blood culture was negative. Her confusion eventually resolved, manager home healthcare on bedside reported that was her baseline before admission. She is stable for discharge and will continue IV antibiotics from home and we will follow closely with PCP. Discharge diagnosis Complicated UTI Left pyelonephritis, possible Aspiration/CAP pneumonia gram +ve -ve Hemorrhagic stroke, ruled out Metabolic, Toxic encephalopathy due to above Sepsis, due to above, possible Diabetes mellitus Thrombocytopenia Triple negative breast cancer on Chemotherapy Cardiotoxicity due to chemotherapy ruled out History of COPD History of asthma History of CHF Discharge plan: Please follow closely with PCP in 1 week Follow up with Discharge clinics within 14 days friday AM with Dr. Lane Please continue home medications Please continue IV invanz from tomorrow. Operations or Procedures CT STROKE CTH on DOS: 04/23/24, CT HEAD WITHOUT CONTRAST on DOS: 04/02/24, CT HEAD WITHOUT CONTRAST on DOS: 11/11/23, MRI BRAIN HEAD WO CONTRAST on DOS: 11/05/23, CT HEAD WITHOUT CONTRAST on DOS: 11/04/23 Technique: Utilizing a multislice CT scanner, a CT scan of the brain was performed without intravenous contrast. Coronal and sagittal reformatted images. All CT scans at this facility use dose modulation, iterative reconstruction, and/or weight based dosing when appropriate to reduce radiation dose to as low as reasonably achievable. Dose: CTDIvol: 58.99 mGy, DLP: 1162.45 mGy.cm FINDINGS: Evaluation is degraded by motion artifact. No acute territorial infarct, intracranial hemorrhage, or mass effect. There are global involutional changes with compensatory prominence of the ventricles and sulci. Patchy periventricular and subcortical white matter hypoattenuation is nonspecific but may be related to small vessel ischemic disease. The orbits are normal. The paranasal sinuses and mastoid air cells are clear. The osseous structures are unremarkable. IMPRESSION: 1. No acute territorial infarct, intracranial hemorrhage, or mass effect. 2. Age-related involutional changes. Chronic microvascular changes. 3. If clinical symptoms persist, MRI may be beneficial in further evaluation. --- Two-dimensional and M-mode echocardiogram with Doppler and color Doppler. Blood Pressure: 128/76 mmHg INDICATION on cancer chemotherapy RISK FACTORS Height: 62, Weight: 189 DIMENSIONS LVDd 3.9 (3.8-5.7cm) LA (2D) 3.7 (1.9-4.0cm) Aortic Root 3.0 (2.0- 3.7cm) LVDs 2.9 (2.5-4.0cm) LA (MM) (1.9-4.0cm) Aortic Cusp Exc 1.8 (1.5- 2.0cm) EF (%) 53.0 (55-70%) Rt. Atrium 3.3 (1.9-4.0cm) Asc. Aorta cm Mitral Valve Mitral Mitral Stenosis E wave 1.56m/s MV Mean GR. mmHg E/A ratio 0.0 2D MVA cm2 Aortic Valve Aortic Valve Aortic Stenosis V1 1.05m/s AO Mean GR. 7mmHg V2 1.70m/s AO Peak GR. 12mmHg LVOT Diameter 1.9 (1.8-2.4cm) Doppler KEVIN 1.75cm2 Pulmonic Valve V2 1.10m/s Other Information Technically limited study due to body habitus and patient position. Conclusion lvef 60% normal rv function trivial pericardial effusion noted moderate MAC Condition at Discharge: Stable Final Diagnosis/Problems List Complicated UTI, possible Left pyelonephritis, possible Aspiration/CAP pneumonia gram +ve -ve Hemorrhagic stroke, ruled out Metabolic encephalopathy due to above Sepsis due to above, possible Tachycardia and tachypnea Diabetes mellitus Thrombocytopenia Triple negative breast cancer on Chemotherapy Cardiotoxicity due to chemotherapy ruled out History of COPD History of asthma History of CHF Discharge Disposition: Home Discharge Instruct/Medications Diet: Consistent carbohydrate, Cardiac 2g Na,low cholest Activity: No Restrictions, As Tolerated Follow Up/Referral: Follow with PCP within 7 days Follow up with Discharge clinics within 14 days friday AM with Dr. Lane Medications: as per EHR home IV invanz to start from tomorrow. Continued Medications: Albuterol Sulfate (Albuterol Sulfate Hfa) 108 Mcg/Act Aer 108 MCG INH UD Alendronate Sodium (Alendronate Sodium) 70 Mg Tab 1 TAB PO QWEEKLY for 28 Days, #4 Amitriptyline Hcl (Amitriptyline Hcl) 100 Mg Tab 2 TAB PO QPM for 90 Days, #180 Calcium Carbonate-Cholecalcife (Ultra Calcium + Vitamin D 600-10 mg-Mcg) 1 Tab Tab 1 TAB PO DAILY Diphenhydramine Hcl (Banophen) 50 Mg Cap 2 CAP PO HS for 90 Days, #180 Ertugliflozin l-Pyroglutamic A (Steglatro) 15 Mg Tab 1 TAB PO DAILY for 90 Days, #90 Ferrous Sulfate (Ferosul) 325 Mg Tab 1 TAB PO MWF for 28 Days, #12 Furosemide (Furosemide) 20 Mg Tab 1 TAB PO DAILY for 90 Days, #90 Insulin Glargine (Basaglar Kwikpen) 100 Unit/Ml Inj 36 UNIT SC QAM for 30 Days, #83 Insulin Lispro (Insulin Lispro Kwikpen) 100 Unit/Ml Inj 12 UNIT SC TIDAC for 83 Days, #30 Metoprolol Tartrate (Metoprolol Tartrate) 25 Mg Tab 1 TAB PO BID, #180 TAB 1 Refill Naloxegol Oxalate (Movantik) 25 Mg Tab 25 MG PO DAILY, TAB Ondansetron HCl (Ondansetron Hydrochloride) 4 Mg Tab 1 TAB PO DAILY for 30 Days, #30 Oxycodone HCl (Oxycontin) 15 Mg Tab 1 TAB PO Q12HR for 30 Days, #60 TAKE 1 TABLET BY MOUTH EVERY 12 HOURS AT 7 AM AND AT 7 PM. Oxycodone W/ Acetaminophen (Apap/Oxycodone) 1 Tab Tab 1 TAB PO DAILY PRN for BREAKTHROUGH PAIN for 30 Days, #30 [10/325 MG] Pantoprazole Sodium Sesquihydr (Pantoprazole Sodium Dr) 40 Mg Tab 20 MG PO DAILY for 90 Days, #90 Patients Own Medication (Patients Own Medication) . 16 MG HS for SCHIZOPHRENIA PTS OWN MED-OBTAIN FROM PT AND SEND TO RX DRUG: [id number] FREQ:HS RX# EXP: DATE DISP: TECH: RPH: Potassium Chloride (Potassium Chloride Cr) 10 Meq Tb 1 TAB PO DAILY, #30 TAB 5 Refills Potassium Chloride (Potassium Chloride Cr) 10 Meq Tb 1 TAB PO DAILY MDD 8 MEQ, #30 TAB 5 Refills Semaglutide (Ozempic) 4 Mg/3 Ml Inj 1 MG SC QWEEKLY for 28 Days, #3 Sertraline Hcl (Sertraline Hcl) 100 Mg Tab 2 TAB PO QPM for 30 Days, #60 Simvastatin (Simvastatin) 40 Mg Tab 1 TAB PO QPM for 90 Days, #90 Sucralfate (Carafate) 1 Gm Tab 1 TAB PO BID for 90 Days, #180 Scheduled Albuterol Sulfate (Albuterol Sulfate Hfa), 108 MCG INH UD, (Reported) Alendronate Sodium (Alendronate Sodium), 1 TAB PO QWEEKLY, (Reported) Amitriptyline Hcl (Amitriptyline Hcl), 2 TAB PO QPM, (Reported) Calcium Carbonate-Cholecalcife (Ultra Calcium + Vitamin D 600-10 mg-Mcg), 1 TAB PO DAILY, (Reported) Diphenhydramine Hcl (Banophen), 2 CAP PO HS, (Reported) Ertugliflozin l-Pyroglutamic A (Steglatro), 1 TAB PO DAILY, (Reported) Ferrous Sulfate (Ferosul), 1 TAB PO MWF, (Reported) Furosemide (Furosemide), 1 TAB PO DAILY, (Reported) Insulin Glargine (Basaglar Kwikpen), 36 UNIT SC QAM, (Reported) Insulin Lispro (Insulin Lispro Kwikpen), 12 UNIT SC TIDAC, (Reported) Metoprolol Tartrate (Metoprolol Tartrate), 1 TAB PO BID, (Reported) Naloxegol Oxalate (Movantik), 25 MG PO DAILY, (Reported) Ondansetron HCl (Ondansetron Hydrochloride), 1 TAB PO DAILY, (Reported) Oxycodone HCl (Oxycontin), 1 TAB PO Q12HR, (Reported) Pantoprazole Sodium Sesquihydr (Pantoprazole Sodium Dr), 20 MG PO DAILY, (Reported) Patients Own Medication (Patients Own Medication), 16 MG HS, (Reported) Potassium Chloride (Potassium Chloride Cr), 1 TAB PO DAILY, (Reported) Potassium Chloride (Potassium Chloride Cr), 1 TAB PO DAILY, (Reported) Semaglutide (Ozempic), 1 MG SC QWEEKLY, (Reported) Sertraline Hcl (Sertraline Hcl), 2 TAB PO QPM, (Reported) Simvastatin (Simvastatin), 1 TAB PO QPM, (Reported) Sucralfate (Carafate), 1 TAB PO BID, (Reported) Scheduled PRN Oxycodone W/ Acetaminophen (Apap/Oxycodone), 1 TAB PO DAILY PRN for BREAKTHROUGH PAIN, (Reported) Discharge Statement: "Patient was advised to return to the ER or call 911 if any headaches, dizziness, shortness of breath, chest pain, abdominal pain, bleeding, fevers, or worsening of medical condition. Patient was counseled about treatment plan, medications, possible side effects, patientverbalized understanding. All questions were answered to the best of my ability. This discharge took greater then 30 minutes in planning, reviewing documentation, counseling the patient, and discussing with other team members." ASSESSMENT ASSESSMENT Assessment Encephalopathy metabolic UTI Aspiration/CAP pneumonia gram +ve -ve DM Date of Service: Dec 06, 2024 Billing Provider: OUMOU LANE MD Common Visit Codes: [id number] DISCH DAY >30min DELILAH QUINN RESIDENT Dec 06, 2024 16:[address] MD Dec 10, 2024 21:57
== END 2024-12-06 23:30 | disposition home health service (06) | DRG 871 ==
LOC: EDBD 17:06 → ER 17:06 → OVERFLOW 12-01 03:26 → TELE-CENTR 12-02 12:41
PROVIDERS: ADMIT Student in an Organized Health Care Education/Training Program; ATTEND Student in an Organized Health Care Education/Training Program
PROC: 05H933Z Insertion of Infusion Device into Right Brachial Vein, Percutaneous Approach (ICD-10-PCS; principal; 2024-12-06)
PROC: B54MZZA Ultrasonography of Right Upper Extremity Veins, Guidance (ICD-10-PCS; 2024-12-06)
DX: A41.9 Sepsis, unspecified organism (principal); G93.41 Metabolic encephalopathy; J15.69 Pneumonia due to other Gram-negative bacteria; J15.9 Unspecified bacterial pneumonia; J69.0 Pneumonitis due to inhalation of food and vomit; N12 Tubulo-interstitial nephritis, not specified as acute or chronic; N39.0 Urinary tract infection, site not specified; E11.9 Type 2 diabetes mellitus without complications; F32.A Depression, unspecified; F20.9 Schizophrenia, unspecified; I11.0 Hypertensive heart disease with heart failure; I25.10 Atherosclerotic heart disease of native coronary artery without angina pectoris; Z20.822 Contact with and (suspected) exposure to COVID-19; I50.9 Heart failure, unspecified; J44.9 Chronic obstructive pulmonary disease, unspecified; Z85.3 Personal history of malignant neoplasm of breast; Z86.73 Personal history of transient ischemic attack (TIA), and cerebral infarction without residual deficits; Z90.710 Acquired absence of both cervix and uterus; Z95.1 Presence of aortocoronary bypass graft; Z79.84 Long term (current) use of oral hypoglycemic drugs; Z79.4 Long term (current) use of insulin; Z79.899 Other long term (current) drug therapy
CPT/HCPCS: 36415; 36600; 70450; 71046; 80048; 80053; 80076; 80307; 80320; 81001; 82010; 82805; 82962; 83036; 83605; 83615; 83935; 85025; 85610; 87040; 87081; 87086; 87088; 87426; 87804; 93005; 93306; 96365; 96375; 97110; 97116; 97163; 99291; G0378; J1335; J1815; J2003; J2405; J2470